=== PATIENT | female | born 1955 | race Caucasian/White ===

== ENCOUNTER → 2019-10-02 13:19 | Outpatient (CLI) | payer OTHER, SELFPAY ==
--- NOTE | ~2019-10-02 | MM_ITS ---
EXAMINATION: MM screening [facility] HISTORY: Screening TECHNIQUE: Craniocaudal and mediolateral oblique 3-D tomosynthesis images were obtained and synthetic 2-D images were generated. CAD analysis was submitted and interpreted. COMPARISON: Comparison to multiple prior studies sequentially, with oldest reviewed study dated 12/22. BREAST PARENCHYMAL COMPOSITION: There are scattered areas of fibroglandular density. FINDINGS: There is no evidence of suspicious mass, calcification, or architectural distortion to sugg est malignancy in either breast. There has been no suspicious interval change. IMPRESSION: 1. No mammographic evidence of malignancy. 2. Recommend routine screening mammography in one year. BI-RADS Category 1: Negative Reviewed, dictated and finalized at location A.
== END ==
PROVIDERS: Visit Provider Obstetrics & Gynecology
DX: Z12.31 Encounter for screening mammogram for malignant neoplasm of breast (principal)
CPT/HCPCS: 77063; 77067

== ENCOUNTER → 2020-10-15 11:15 | Outpatient (CLI) | payer MEDICARE, SELFPAY ==
--- NOTE | ~2020-10-15 | MM_ITS ---
EXAMINATION: MM screening [facility] HISTORY: Screening mammogram TECHNIQUE: Craniocaudal and mediolateral oblique 3-D tomosynthesis images were obtained and synthetic 2-D images were generated. CAD analysis was submitted and interpreted. COMPARISON: 10/02/2019, 05/24/2018, 01/24/2017 BREAST PARENCHYMAL COMPOSITION: The breasts are almost entirely fatty. FINDINGS: There is no evidence of suspicious mass, calcification, or architectural distortion to sugg est malignancy in either breast. There has been no suspicious interval change. IMPRESSION: 1. No mammographic evidence of malignancy. 2. Recommend routine screening mammography in one year. BI-RADS Category 1: Negative Reviewed, dictated and finalized at location A.
== END ==
PROVIDERS: PCP Physician Assistant; Visit Provider Obstetrics & Gynecology
DX: Z12.31 Encounter for screening mammogram for malignant neoplasm of breast (principal)
CPT/HCPCS: 77063; 77067

== ENCOUNTER → 2021-02-03 01:04 | Outpatient (CLI) | payer MEDICARE, SELFPAY ==
[2021-02-04 02:02] LABS: SARS-CoV-2 RNA PCR Negative
== END ==
PROVIDERS: PCP Physician Assistant; Visit Provider Physician Assistant
DX: R68.89 Other general symptoms and signs (principal); Z20.822 Contact with and (suspected) exposure to COVID-19
CPT/HCPCS: C9803; U0003; U0005

== ENCOUNTER 2021-05-07 02:08 | Day surgery (SDC) | payer MEDICARE, SELFPAY ==
[2021-04-30 13:21] VITALS: BMI 37.8
--- NOTE | 2021-05-06 13:36 | WPDGICN ---
Assessment and Plan Assessment and plan (1) Colon cancer screening: Code(s): Z12.11 - Encounter for screening for malignant neoplasm of colon Status: Acute Assessment and Plan: Colonoscopy with possible biopsy or polypectomy or cautery or injection of substances. GI Consult Note Consult date/time: 05/06/21 13:36 HPI: Jessica Ferrer is a 65 year old female referred b For colon cancer screening. She denies chronic diarrhea. She has recently had some constipation and on those 2 days saw a bit of blood in the stool. Review of Systems Review of Systems: All systems reviewed & are unremarkable except as noted in HPI and below PMFSH Past Medical History Medical History (Updated 05/07/21 @ 10:59 by Oscar Magallon MD) VANIA (obstructive sleep apnea) Paroxysmal A-fib Paroxysmal SVT (supraventricular tachycardia) Surgical History Surgical History (Updated 05/07/21 @ 10:47 by Georgi Zepeda MD) H/O cardiac radiofrequency ablation Family History Family History Father No family history of diabetes mellitus Diabetes mellitus Social History Social History Smoking status: Never smoker Second hand tobacco smoke exposure: No Alcohol intake: never Substance use: never Substance use type: does not use Living arrangements: with family Spiritual care concerns: No Meds Home Medications and Allergies Home Medications Medication Instructions Recorded Confirmed Type calcium carbonate 600 mg calcium 600 mg PO DAILY 05/31/19 04/30/21 History (1,500 mg) tablet cholecalciferol (vitamin D3) 25 50 mcg PO DAILY cap 05/31/19 04/30/21 History mcg (1,000 unit) capsule cyclosporine 0.05 % eye drops in a 1 drop EACH EYE Q12H 05/31/19 04/30/21 History dropperette apixaban 5 mg tablet 5 mg PO BID 01/05/21 04/30/21 History flecainide 100 mg tablet 100 mg PO BID tablet 01/05/21 04/30/21 History cyanocobalamin (vitamin B-12) 1,000 mcg PO DAILY 04/30/21 04/30/21 History [Vitamin B-12] gabapentin 100 mg PO HS 04/30/21 04/30/21 History gabapentin 100 mg PO TID PRN 04/30/21 04/30/21 History magnesium 400 mg PO HS 04/30/21 04/30/21 History propranolol 160 mg PO DAILY 04/30/21 04/30/21 History sertraline 100 mg PO DAILY 04/30/21 04/30/21 History Allergies Allergy/AdvReac Type Severity Reaction Status Date / Time piroxicam Allergy Intermediate HIVES Verified 05/07/21 10:08 diclofenac Allergy Mild SWELLING Verified 05/07/21 10:08 FEET/HANDS, LEFT BREAST PAIN Sulfa (Sulfonamide Allergy Mild Hives Verified 05/07/21 10:08 Antibiotics) codeine AdvReac Severe Nausea and Verified 05/07/21 10:08 Vomiting erythromycin base AdvReac Mild Nausea and Verified 05/07/21 10:08 Vomiting Exam Resp: Auscultation: clear to auscultation bilaterally Cardio: Rate: regular rate Rhythm: regular rhythm GI: GI Palp: Yes Soft to palpation and No Tenderness to palpation present (GI)
[2021-05-07 10:09] VITALS: BP 152/88; PULSE 65; RESP 20; TEMP 36.2; O2SAT 95; BMI 38.9
[2021-05-07] MEDS: LACTATED RINGERS 1,000 ML 150 ML IV CONT (10:25)
--- NOTE | 2021-05-07 10:46 | WPDANESEPPF ---
Anes - Initial Pre Proc Eval Procedure: Operation Date: 05/07/21 11:00 Proposed Procedures p Colonoscopy - Oscar Magallon MD Date/Time: 05/07/21 10:46 Surgeon: Oscar Magallon MD Pre Op Diagnosis: melena Patient Data Age: 65 Gender: F Height: 1.63 m Weight: 102.8 kg Last Vital Signs Temp 36.2 C L 05/07/21 10:09 Pulse 65 05/07/21 10:09 Resp 20 05/07/21 10:09 BP 152/88 H 05/07/21 10:09 Pulse Ox 95 05/07/21 10:09 Allergies Allergy/AdvReac Type Severity Reaction Status Date / Time piroxicam Allergy Intermediate HIVES Verified 05/07/21 10:08 diclofenac Allergy Mild SWELLING Verified 05/07/21 10:08 FEET/HANDS, LEFT BREAST PAIN Sulfa (Sulfonamide Allergy Mild Hives Verified 05/07/21 10:08 Antibiotics) codeine AdvReac Severe Nausea and Verified 05/07/21 10:08 Vomiting erythromycin base AdvReac Mild Nausea and Verified 05/07/21 10:08 Vomiting Home Medications Medication Instructions Recorded Confirmed Type calcium carbonate 600 mg calcium 600 mg PO DAILY 05/31/19 04/30/21 History (1,500 mg) tablet cholecalciferol (vitamin D3) 25 50 mcg PO DAILY cap 05/31/19 04/30/21 History mcg (1,000 unit) capsule cyclosporine 0.05 % eye drops in a 1 drop EACH EYE Q12H 05/31/19 04/30/21 History dropperette apixaban 5 mg tablet 5 mg PO BID 01/05/21 04/30/21 History flecainide 100 mg tablet 100 mg PO BID tablet 01/05/21 04/30/21 History cyanocobalamin (vitamin B-12) 1,000 mcg PO DAILY 04/30/21 04/30/21 History [Vitamin B-12] gabapentin 100 mg PO HS 04/30/21 04/30/21 History gabapentin 100 mg PO TID PRN 04/30/21 04/30/21 History magnesium 400 mg PO HS 04/30/21 04/30/21 History propranolol 160 mg PO DAILY 04/30/21 04/30/21 History sertraline 100 mg PO DAILY 04/30/21 04/30/21 History Patient hx anesthesia problems: none Family hx anesthesia problems: none Results Review: All pre-operative results and documents have been reviewed as part of the pre-operative evaluation. [facility] Past Medical History Medical History (Updated 05/07/21 @ 10:47 by Georgi Zepeda MD) VANIA (obstructive sleep apnea) Paroxysmal A-fib Paroxysmal SVT (supraventricular tachycardia) Surgical History Surgical History (Updated 05/07/21 @ 10:47 by Georgi Zepeda MD) H/O cardiac radiofrequency ablation Family History Family History Father No family history of diabetes mellitus Diabetes mellitus Social History Social History Smoking status: Never smoker Second hand tobacco smoke exposure: No Alcohol intake: never Substance use: never Substance use type: does not use Living arrangements: with family Spiritual care concerns: No Anes - Eval Final PreProcedure Day of Procedure 05/07/21 10:46 Patient weight: obese Heart: regular rate and rhythm Lungs: clear to auscultation Airway: Mallampati scale Neurological: alert and oriented Last oral intake: >/= 8 hours ASA classification: III Emergent: no Anesthetic plan: proceed Anesthesia type and monitoring: general GIVS and standard monitoring Results Review: All pre-operative results and documents have been reviewed as part of the pre-operative evaluation. Informed Consent: The patient's anesthetic plan and its attendant risks and benefits were discussed with the patient/family/POA. Questions were solicited and answers provided to the satisfaction of the patient/family/POA.
[2021-05-07 11:25] VITALS: BP 145/102; PULSE 64; RESP 22; O2SAT 96
[2021-05-07 11:35] VITALS: BP 148/102; PULSE 63; RESP 24; O2SAT 96
[2021-05-07 11:45] VITALS: BP 137/63; PULSE 60; RESP 19
== END 2021-05-07 12:05 | disposition home or self-care (01) ==
PROVIDERS: PCP Physician Assistant; Visit Provider Internal Medicine Gastroenterology
PROC: 0DJD8ZZ Inspection of Lower Intestinal Tract, Via Natural or Artificial Opening Endoscopic (ICD-10-PCS; CPT 45378; principal; 2021-05-07 11:00)
DX: Z12.11 Encounter for screening for malignant neoplasm of colon (principal); K64.8 Other hemorrhoids; K57.30 Diverticulosis of large intestine without perforation or abscess without bleeding; I48.0 Paroxysmal atrial fibrillation; I47.1 Supraventricular tachycardia; G47.33 Obstructive sleep apnea (adult) (pediatric); E66.9 Obesity, unspecified; Z68.38 Body mass index [BMI] 38.0-38.9, adult
CPT/HCPCS: G0121; J2704; J7120

== ENCOUNTER 2021-07-06 11:41 | Emergency (ER) | payer MEDICARE, SELFPAY ==
[2021-07-06] VITALS (8 sets, daily range): BP systolic 145–168; BP diastolic 66–75; PULSE 55–70; RESP 14–20; TEMP 36.5; O2SAT 96–100
--- NOTE | ~2021-07-06 | CT_ITS ---
EXAMINATION: CT brain wo/w con DATE: 07/06/2021 13:41 INDICATION: Vertigo. Dizziness. TECHNIQUE: Computed tomography (CT) of the head was performed without and with 100 mL Omnipaque 300 i ntravenous contrast. The mA was adjusted according to patient size. Iterative reconstruction techniqu e was employed. The dose-length product was 1059.33 mGy-cm. COMPARISON: None FINDINGS: There is no intracranial hemorrhage, acute infarction, or abnormal intracranial mass lesion . The ventricles are normal in size. There is mucosal thickening in the paranasal sinuses. The mastoi d air cells are normal. The orbits are normal. IMPRESSION: 1. Normal brain. Reviewed, dictated and finalized at location B. IMPRESSION: 1. Normal brain.
--- NOTE | 2021-07-06 12:11 | ECG_ITS ---
Measurements Intervals [place] Rate: 59 P: 48 [place]: 194 QRS: -28 QRSD: 113 T: 22 QT: 437 QTc: 434 Interpretive Statements SINUS BRADYCARDIA INTRAVENTRICULAR CONDUCTION DELAY BORDERLINE R WAVE PROGRESSION, ANTERIOR LEADS BORDERLINE ECG Electronically Signed On 07-06-2021 12:38:03 CDT by Kirk Sinha D.O.
[2021-07-06 12:48] LABS: Basophils Percent Auto 0.3 % (0.2-1.2); Eosinophils Absolute Auto 0.1 K/mm3 (0-0.3); Eosinophils Percent Auto 1.7 % (0-4.4); Hematocrit 41.7 % (37.0-47.0); Hemoglobin 12.7 g/dL (12.0-15.0); Immature Granulocyte Absolute 0.02 K/mm3 (0.00-0.031); Immature Granulocyte Percent A 0.3 % (0-0.5); Lymphocytes Percent Auto 13.8 % (18.3-44.2); Mean Corpuscular HGB Conc 30.5 g/dl (32-36); Mean Corpuscular Hemoglobin 28.7 pg (26-34); Mean Corpuscular Volume 94.1 fl (80-100); Mean Platelet Volume 8.8 fl (7.4-10.4); Monocytes Absolute Auto 0.6 K/mm3 (0.1-0.6); Neutrophils Absolute Auto 5.5 K/mm3 (1.3-6.7); Neutrophils Percent Auto 75.9 % (45.5-73.1); Platelet Count Result 254 k/mm3 (150-375); Red Blood Count 4.43 M/mm3 (4.2-5.4); Red Cell Distribution Width 13.6 % (11.5-14.5); White Blood Count 7.3 K/mm3 (4.5-10.0)
[2021-07-06 13:02] LABS: Alanine Aminotransferase 15 U/L (6-35); Albumin Level 3.7 g/dL (3.5-5.1); Alkaline Phosphatase 96 U/L (38-126); Anion Gap 2 mmol/L (8-16); Aspartate Amino Transferase 24 U/L (14-36); Bilirubin,Total 0.4 mg/dL (0.2-1.3); Blood Urea Nitrogen 8 mg/dL (7-17); Calcium 8.8 mg/dL (8.4-10.2); Carbon Dioxide 32 mmol/L (22-30); Chloride 108 mmol/L (98-107); Estimated CRCL calculation 69 ml/min; Estimated Glomerular Filt Rate > 60; Glucose 103 mg/dL (65-110); Potassium 4.3 mmol/L (3.4-5.0); Sodium 142 mmol/L (137-145)
[2021-07-06] MEDS: SODIUM CHLORIDE 0.9% IV 1,000 ML 999 ML IV CONT (13:55)
[2021-07-06] MEDS: MECLIZINE HCL 25 MG TABLET PO (13:55)
--- NOTE | 2021-07-06 14:46 | ED.DIZZY ---
HPI - Dizziness General Chief Complaint: Dizziness Stated Complaint: dizzy with nausea Time Seen by Provider: 07/06/21 13:13 Source: patient History of Present Illness HPI Narrative: Patient presents with dizziness describes sensation of feeling off balance. She has a history of vertigo usually controlled with meclizine but she no longer has her meclizine. She has been working on trying to see me in addition but is unable to do so. Dylans family member had similar symptoms which improved with vestibular PT. Reports her symptoms were worse this morning she is of a hard time walking around so she wanted come to ER for evaluation. Denies any focal numbness or weakness denies any headaches. Reports associated nausea. Denies any urinary symptoms chest pain or shortness of breath. Symptoms are worse with turning her head Related Data Home Medications Medication Instructions Recorded Confirmed calcium carbonate 600 mg calcium 600 mg PO DAILY 05/31/19 04/30/21 (1,500 mg) tablet cholecalciferol (vitamin D3) 25 50 mcg PO DAILY cap 05/31/19 04/30/21 mcg (1,000 unit) capsule cyclosporine 0.05 % eye drops in a 1 drop EACH EYE Q12H 05/31/19 04/30/21 dropperette apixaban 5 mg tablet 5 mg PO BID 01/05/21 04/30/21 flecainide 100 mg tablet 100 mg PO BID tablet 01/05/21 04/30/21 cyanocobalamin (vitamin B-12) 1,000 mcg PO DAILY 04/30/21 04/30/21 [Vitamin B-12] gabapentin 100 mg PO HS 04/30/21 04/30/21 gabapentin 100 mg PO TID PRN 04/30/21 04/30/21 magnesium 400 mg PO HS 04/30/21 04/30/21 propranolol 160 mg PO DAILY 04/30/21 04/30/21 sertraline 100 mg PO DAILY 04/30/21 04/30/21 sertraline mg 07/06/21 Allergies Allergy/AdvReac Type Severity Reaction Status Date / Time piroxicam Allergy Intermediate HIVES Verified 05/07/21 10:08 diclofenac Allergy Mild SWELLING Verified 05/07/21 10:08 FEET/HANDS, LEFT BREAST PAIN Sulfa (Sulfonamide Allergy Mild Hives Verified 05/07/21 10:08 Antibiotics) codeine AdvReac Severe Nausea and Verified 05/07/21 10:08 Vomiting erythromycin base AdvReac Mild Nausea and Verified 05/07/21 10:08 Vomiting Review of Systems Review of Systems: CONSTITUTIONAL: Denies fever, chills, or sweats. EYES: Denies visual changes, redness, or discharge. ENT: Denies rhinorrhea, congestion, sore throat, or otalgia. CARDIOVASCULAR: Denies chest pain, palpitations, or edema. RESPIRATORY: Denies cough or dyspnea. GASTROINTESTINAL: Denies abdominal pain, nausea, vomiting, or diarrhea. GENITOURINARY: Denies dysuria or hematuria. SKIN: Denies rash or itching. MUSCULOSKELETAL: Denies back pain, joint pain, or myalgia. NEUROLOGIC: Denies headache, numbness, or weakness. PSYCHIATRIC: Denies anxiety or depression. All systems reviewed & are unremarkable except as noted in HPI and below PMFSH Past Medical History Medical History VANIA (obstructive sleep apnea) Paroxysmal A-fib Paroxysmal SVT (supraventricular tachycardia) Surgical History Surgical History H/O cardiac radiofrequency ablation Family History Family History Father No family history of diabetes mellitus Diabetes mellitus Social History Social History Smoking status: Never smoker Second hand tobacco smoke exposure: No Alcohol intake: never Substance use: never Substance use type: does not use Spiritual care concerns: No Exam Narrative: GENERAL: Well-appearing, well-nourished, and in no acute distress. HEAD: Normocephalic, atraumatic. EYES: PERRLA and EOMI. ENT: Nares clear, no rhinorrhea or epistaxis. Mucous membranes moist. NECK: Supple. No masses. No JVD CHEST: Clear to auscultation. No respiratory distress. No wheezes rales or rhonchi HEART: Regular rate and rhythm. No murmur heard. N
== END 2021-07-06 15:09 | disposition home or self-care (01) ==
PROVIDERS: Emergency Provider Emergency Medicine; PCP Physician Assistant
DX: R42 Dizziness and giddiness (principal); G47.33 Obstructive sleep apnea (adult) (pediatric); I48.0 Paroxysmal atrial fibrillation; Z79.01 Long term (current) use of anticoagulants; R00.1 Bradycardia, unspecified; I45.9 Conduction disorder, unspecified; R94.31 Abnormal electrocardiogram [ECG] [EKG]
CPT/HCPCS: 36415; 70470; 80053; 85025; 93005; 96360; 99284; A9270; J7030; Q9967

== ENCOUNTER 2021-10-08 09:30 | Outpatient (CLI) | payer MEDICARE, SELFPAY ==
--- NOTE | ~2021-10-08 | CT_ITS ---
EXAMINATION: CTA brain carotid DATE: 10/08/2021 10:08 INDICATION: Vertebrobasilar insufficiency. Lightheadedness. TECHNIQUE: Computed tomographic angiography (CTA) of the head was performed without and with 100 mL O mnipaque-350 intravenous contrast. CTA of the neck was performed with intravenous contrast. Automated exposure control and iterative reconstruction technique were employed. The dose-length product was 1 560.94 mGy-cm. Maximum intensity projection and volume rendered 3D-reconstructions were created by steffanie knott technologist on a separate workstation. COMPARISON: Head CT 07/06/2021 FINDINGS: HEAD CTA: There is no intracranial hemorrhage, acute infarction, or abnormal intracranial mass lesion . The ventricles are normal in size. The orbits are normal. There is mucosal thickening in the parana silvano sinuses. The mastoid air cells are normal. Right vertebral artery is dominant. The basilar and po sterior cerebral arteries are small, a normal variant. There is no significant stenosis of basilar ar lyn or the posterior cerebral arteries. The posterior communicating arteries are normal. There is no significant stenosis of the intracranial internal carotid arteries or anterior or middle cerebral ar teries. Anterior communicating artery is normal. There is no aneurysm. NECK CTA: Main pulmonary artery is enlarged, consistent with pulmonary arterial hypertension. There a re no pathologically enlarged lymph nodes. There is no significant stenosis of the vertebral arteries . There is mild plaque in the proximal internal carotid arteries. There is 0% stenosis of the proxima l right internal carotid artery relative to normal distal artery lumen diameter (NASCET criteria). Th ere is 0% stenosis of the proximal left internal carotid artery relative to normal distal artery lume n diameter. There is moderate cervical spondylosis. IMPRESSION: 1. Normal brain. No aneurysm or significant intracranial arterial stenosis. 2. 0% stenosis of the proximal internal carotid arteries relative to normal distal artery lumen diame ters (NASCET criteria). Reviewed, dictated and finalized at location A. IMPRESSION: 1. Normal brain. No aneurysm or significant intracranial arterial stenosis. 2. 0% stenosis of the proximal internal carotid arteries relative to normal dis pham artery lumen diameters (NASCET criteria).
[2021-10-08 09:59] LABS: Estimated Glomerular Filt Rate > 60
== END 2021-10-08 09:31 | disposition home or self-care (01) ==
PROVIDERS: PCP Physician Assistant; Visit Provider Psychiatry & Neurology Neurology
DX: R42 Dizziness and giddiness (principal)
CPT/HCPCS: 70496; 70498; Q9967

== ENCOUNTER → 2021-12-08 09:47 | Outpatient (CLI) | payer MEDICARE, SELFPAY ==
--- NOTE | ~2021-12-08 | DEXA_ITS ---
Bone Density Report Name: GATITO BILLINGS Age: 66 Sex: Female Ethnicity: White Date of : 1955 Indication: osteopenia; parental hip fracture; height loss;postmenopausal Referring Provider: Fabio, Sanna Study: Bone densitometry was performed. Exam Date: December 08, 2021 Accession number: [id number] Bone Density: Region BMD T-score Z-score Classification AP Spine (L1, L4) 0.865 -1.6 0.3 Osteopenia Femoral Neck (Left) 0.676 -1.6 0.0 Osteopenia Total Hip (Left) 0.911 -0.3 1.1 Normal Femoral Neck (Right) 0.683 -1.5 0.1 Osteopenia Total Hip (Right) 0.872 -0.6 0.7 Normal Total Hip Mean 0.892 -0.5 0.9 Normal World Health Organization criteria for BMD impression classify patients as: Normal (T-score at or above -1.0), Osteopenia (T-score between -1.0 and -2.5), or Osteoporosis (T-score at or below -2.5). 10-year Fracture Risk(1): Major Osteoporotic Fracture 15% Hip Fracture 1.1% Reported Risk Factors: [place] (), Neck BMD=0.683, BMI=40.2, parental fracture (1) FRAX(R) Version 3.08. Fracture probability calculated for an untreated patient. Fracture probability may be lower if the patient has received treatment. Previous Exams: Region Exam Age BMD T-score BMD Change BMD Change Date g/cm2 vs Baseline vs Previous AP Spine(L1, L4) 12/08/2021 66 0.865 -1.6 -0.168 -0.008 01/04/2015 59 0.873 -1.5 -0.160* -0.018 09/16/2012 57 0.891 -1.3 -0.142* -0.061* 09/09/2010 55 0.952 -0.8 -0.081* -0.022 05/04/2008 52 0.974 -0.6 -0.059* -0.059* 03/08/2006 50 1.033 0.0 Total Hip(Left) 12/08/2021 66 0.911 -0.3 -0.081 0.042 01/04/2015 59 0.869 -0.6 -0.123* 0.068* 09/16/2012 57 0.801 -1.2 -0.191* -0.089* 09/09/2010 55 0.890 -0.4 -0.102* -0.050* 05/04/2008 52 0.940 0.0 -0.052* -0.052* 03/08/2006 50 0.992 0.4 Total Hip(Right) 12/08/2021 66 0.872 -0.6 -0.107 0.042 01/04/2015 59 0.831 -0.9 -0.148* 0.055* 09/16/2012 57 0.776 -1.4 -0.203* -0.104* 09/09/2010 55 0.880 -0.5 -0.099* -0.030* 05/04/2008 52 0.910 -0.3 -0.069* -0.069* 03/08/2006 50 0.979 0.3 *Denotes significance at 95% confidence level, LSC for AP Spine = 0.022 g/cm2, LSC for Total Hip = 0.027 g/cm2 Clinical Information Provided by Patient:
== END ==
PROVIDERS: PCP Physician Assistant; Visit Provider Nurse Practitioner
DX: Z78.0 Asymptomatic menopausal state (principal); M85.88 Other specified disorders of bone density and structure, other site; M85.852 Other specified disorders of bone density and structure, left thigh; M85.851 Other specified disorders of bone density and structure, right thigh
CPT/HCPCS: 77080

== ENCOUNTER → 2021-12-22 15:55 | Outpatient (CLI) | payer MEDICARE, SELFPAY ==
--- NOTE | ~2021-12-22 | MM_ITS ---
EXAMINATION: MM screening [facility] BI [facility] HISTORY: Screening TECHNIQUE: Craniocaudal and mediolateral oblique 3-D tomosynthesis images were obtained and synthetic 2-D images were generated. CAD analysis was submitted and interpreted. COMPARISON: Comparison to multiple prior studies sequentially, with oldest reviewed study dated 12/22. BREAST PARENCHYMAL COMPOSITION: There are scattered areas of fibroglandular density. FINDINGS: There is no evidence of suspicious mass, calcification, or architectural distortion to sugg est malignancy in either breast. There has been no suspicious interval change. IMPRESSION: 1. No mammographic evidence of malignancy. 2. Recommend routine screening mammography in one year. BI-RADS Category 1: Negative Reviewed, dictated and finalized at location A.
== END ==
PROVIDERS: PCP Physician Assistant; Visit Provider Nurse Practitioner
DX: Z12.31 Encounter for screening mammogram for malignant neoplasm of breast (principal)
CPT/HCPCS: 77063; 77067

== ENCOUNTER 2022-02-03 10:04 | Emergency (ER) | payer MEDICARE, SELFPAY ==
[2022-02-03 10:53] VITALS: BP 159/83; PULSE 62; RESP 18; TEMP 36.7; O2SAT 98
--- NOTE | 2022-02-03 11:28 | ED.URI ---
HPI - URI/Sore Throat General Chief Complaint: Upper Respiratory Infection Stated Complaint: bilateral ear pain,sinus drainage Time Seen by Provider: 02/03/22 11:28 Source: patient Mode of arrival: ambulatory Limitations: no limitations History of Present Illness HPI Narrative: 66-year-old female presents with complaint of sinus congestion, sore throat, fatigue, decreased appetite for 2 days. Afebrile. Denies chills and body aches. No nausea vomiting diarrhea. Denies chest pain and shortness of breath. Has not taking any [id number] medications to treat her symptoms. All systems reviewed and negative except as noted above. Related Data Home Medications Medication Instructions Recorded Confirmed calcium carbonate 600 mg calcium 600 mg PO DAILY 05/31/19 02/03/22 (1,500 mg) tablet cholecalciferol (vitamin D3) 25 50 mcg PO DAILY 05/31/19 02/03/22 mcg (1,000 unit) capsule cyclosporine 0.05 % eye drops in a 1 drop ophthalmic (eye) Q12H 05/31/19 02/03/22 dropperette (Restasis) apixaban 5 mg tablet (Eliquis) 5 mg PO BID 01/05/21 02/03/22 flecainide 100 mg tablet 100 mg PO BID 01/05/21 02/03/22 cyanocobalamin (vitamin B-12) 1,000 mcg PO DAILY 04/30/21 02/03/22 1,000 mcg tablet (Vitamin B-12) magnesium 200 mg tablet 400 mg PO HS 04/30/21 02/03/22 propranolol 160 mg capsule,24 160 mg PO DAILY 04/30/21 02/03/22 hr,extended release gabapentin 100 mg capsule 100 mg PO QHS 07/16/21 02/03/22 triamcinolone acetonide 55 mcg 1 spray intranasal DAILY 02/03/22 02/03/22 nasal spray aerosol (Nasacort) Allergies Allergy/AdvReac Type Severity Reaction Status Date / Time latex Allergy Intermediate Rash Verified 02/03/22 10:53 codeine AdvReac Severe Nausea and Verified 02/03/22 10:53 Vomiting erythromycin base AdvReac Mild Nausea and Verified 02/03/22 10:53 Vomiting Review of Systems Review of Systems: CONSTITUTIONAL: Denies fever, chills, or sweats. EYES: Denies visual changes, redness, or discharge. ENT: Reports rhinorrhea, congestion, sore throat. Denies otalgia. CARDIOVASCULAR: Denies chest pain, palpitations, or edema. RESPIRATORY: Denies cough or dyspnea. GASTROINTESTINAL: Denies abdominal pain, nausea, vomiting, or diarrhea. GENITOURINARY: Denies dysuria or hematuria. SKIN: Denies rash or itching. MUSCULOSKELETAL: Denies back pain, joint pain, or myalgia. NEUROLOGIC: Denies headache, numbness, or weakness. PSYCHIATRIC: Denies anxiety or depression. All other systems reviewed are negative, except as documented in HPI. [facility] Past Medical History Medical History VANIA (obstructive sleep apnea) Paroxysmal A-fib Paroxysmal SVT (supraventricular tachycardia) Surgical History Surgical History H/O cardiac radiofrequency ablation Family History Family History Father No family history of diabetes mellitus Diabetes mellitus Social History Social History (Updated 01/22/22 @ 11:41 by Bárbara Fuller MA) Smoking status: Never smoker Second hand tobacco smoke exposure: No Alcohol intake: never Substance use: never Substance use type: does not use Lack of Food: Never True Concerned About Future Housing: No Difficulty Paying Gas/Electric Bills: No Difficulty Paying for Meds: No Currently Unemployed: No Education: Trade/Vocational Certificate Difficulty w/ Childcare or Family Care: No Spiritual care concerns: No Comments At time of signature, agree with nursing past medical, surgical, social and family history. There is no relevant family history pertinent to the presenting complaint. Exam Narrative: GENERAL: This is a well-nourished, well-developed patient, in no apparent distress. HEAD: normocephalic, atraumatic. EYES: PERRL. Sclera clear/white. Vision is grossly intact. EARS: External ears normal, au
== END 2022-02-03 12:05 | disposition home or self-care (01) ==
PROVIDERS: Emergency Provider Nurse Practitioner Family; PCP Physician Assistant
DX: J01.90 Acute sinusitis, unspecified (principal); Z20.822 Contact with and (suspected) exposure to COVID-19; I48.0 Paroxysmal atrial fibrillation
CPT/HCPCS: 87426; 87804; 99213; C9803; G0463

== ENCOUNTER → 2022-03-19 10:45 | Outpatient (CLI) | payer MEDICARE, SELFPAY ==
--- NOTE | ~2022-03-19 | MR_ITS ---
EXAMINATION: MR knee LT wo con DATE: 03/19/2022 11:31 INDICATION: Chronic left knee pain TECHNIQUE: Magnetic resonance imaging (MRI) of the left knee was performed without intravenous contra st. Sequences included coronal PD-weighted FSE, coronal PD-weighted FS FSE, sagittal T2-weighted FSE , sagittal PD-weighted FS FSE and axial PD weighted fat saturated FSE. COMPARISON: None. FINDINGS: Medial compartment: Longitudinal horizontal tear extending to the inferior articular surface at the junction of the middl e and inner thirds of the posterior body and posterior horn of the medial meniscus. Articular cartila ge is normal. Lateral compartment: Increased signal involving the inner third of the body of the lateral meniscus on 2 consecutive coron al images and extending inferior articular surface on the third consistent with a meniscal tear of in determinate morphology, most likely complex. Additional increased signal along the inner half of the posterior horn of the lateral meniscus consistent with radial versus additional complex tear. Articul ar cartilage is normal. Patellofemoral compartment: Deep chondral ulceration at the medial patellar facet and cephalad aspect of the apical ridge with a couple small foci of subarticular edema-like signal change. Less severe partial thickness cartilage l oss with deep chondral fissuring at the lateral patellar facet. Peripheral chondral ulceration and de ep fissuring with underlying cortical regularity and minimal edema-like signal change at the inferior aspect of the medial trochlea. Ligaments and tendons: Anterior and posterior cruciate ligaments are normal. The medial collateral ligament and fibular jennifer ateral ligament complex are normal. The extensor mechanism is normal. The visualized medial and later al hamstring tendons as well as the iliotibial band are normal. Fluid: Physiologic amount of fluid in the joint space. No loose osteochondral bodies identified. Osseous/other: Normal marrow signal cephalad presented small fossa degenerative subarticular signal change at the pa tellofemoral compartment. No fracture or pathologic marrow replacing process. IMPRESSION: 1. Medial and lateral meniscal tears. 2. 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 Reviewed, dictated and finalized at location B. ARER MAKING DEPARTMENT IMPRESSION: 1. Medial and lateral meniscal tears. 2. 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
== END ==
PROVIDERS: PCP Physician Assistant; Visit Provider Orthopaedic Surgery
DX: M17.12 Unilateral primary osteoarthritis, left knee (principal); S83.282A Other tear of lateral meniscus, current injury, left knee, initial encounter; S83.242A Other tear of medial meniscus, current injury, left knee, initial encounter; X58.XXXA Exposure to other specified factors, initial encounter
CPT/HCPCS: 73721

== ENCOUNTER → 2023-01-31 10:57 | Outpatient (CLI) | payer MEDICARE, SELFPAY ==
--- NOTE | ~2023-01-31 | XR_ITS ---
EXAMINATION: XR lumbar spine 2-3V DATE: 01/31/2023 11:32 INDICATION: Low back pain TECHNIQUE: Anteroposterior and lateral views of the lumbar spine, and cone-down lateral view of the l umbosacral junction were obtained. COMPARISON: None. FINDINGS: There is moderate loss of intervertebral disc space height at L1-2 and L4-5. Vertebral body heights and alignment are maintained. There is no fracture. There is moderate facet joint osteoarthr itis. IMPRESSION: 1. Moderate lumbar spondylosis without acute findings. Reviewed, dictated and finalized at location B. ARY DIRECTOR
--- NOTE | ~2023-01-31 | XR_ITS ---
EXAMINATION: XR thoracic spine 3V DATE: 01/31/2023 11:32 INDICATION: Thoracic back pain TECHNIQUE: AP, lateral and lateral swimmer's views of the thoracic spine were obtained. COMPARISON: None. FINDINGS: Bone alignment is normal. There is no fracture. There is moderate loss of intervertebral di sc space height throughout the thoracic spine. The vertebral body heights appear to be maintained. Sm all degenerative osteophytes project from the anterior endplates of multiple vertebral bodies. IMPRESSION: 1. Moderate thoracic spondylosis without acute findings. Reviewed, dictated and finalized at location B. AGE CENTER MANAGER
== END ==
PROVIDERS: PCP Physician Assistant
DX: M47.894 Other spondylosis, thoracic region (principal); M47.896 Other spondylosis, lumbar region
CPT/HCPCS: 72072; 72100

== ENCOUNTER → 2023-03-04 12:26 | Outpatient (CLI) | payer MEDICARE, SELFPAY ==
--- NOTE | ~2023-03-04 | MM_ITS ---
EXAMINATION: MM screening [facility] BI w loyd HISTORY: Screening mammogram TECHNIQUE: Craniocaudal and mediolateral oblique 3-D tomosynthesis images were obtained and synthetic 2-D images were generated. CAD analysis was submitted and interpreted. COMPARISON: 12/22/2021, 10/15/2020, 10/02/2019 BREAST PARENCHYMAL COMPOSITION: The breasts are almost entirely fatty. FINDINGS: No suspicious mass, calcification, or architectural distortion are identified in either jasper ast to suggest malignancy. There has been no suspicious interval change. IMPRESSION: 1. No mammographic evidence of malignancy. 2. Recommend routine screening mammography in one year. BI-RADS Category 1: Negative Reviewed, dictated and finalized at location A. MENTAL IRON WORKER HELPER
== END ==
PROVIDERS: PCP Obstetrics & Gynecology Gynecology; Visit Provider Obstetrics & Gynecology Gynecology
DX: Z12.31 Encounter for screening mammogram for malignant neoplasm of breast (principal)
CPT/HCPCS: 77063; 77067

== ENCOUNTER 2024-05-11 11:36 | Outpatient (CLI) | payer MEDICARE, SELFPAY ==
--- NOTE | ~2024-05-11 | MM_ITS ---
EXAMINATION: MM screening [facility] BI w loyd HISTORY: Screening TECHNIQUE: Craniocaudal and mediolateral oblique 3-D tomosynthesis images were obtained and synthetic 2-D images were generated. CAD analysis was submitted and interpreted. COMPARISON: Comparison to multiple prior studies sequentially, with oldest reviewed study dated 01/21. BREAST PARENCHYMAL COMPOSITION: Not dense: There are scattered areas of fibroglandular density. FINDINGS: There is no evidence of suspicious mass, calcification, or architectural distortion to sugg est malignancy in either breast. There has been no suspicious interval change. IMPRESSION: 1. No mammographic evidence of malignancy. 2. Recommend routine screening mammography in one year. BI-RADS Category 1: Negative Reviewed, dictated and finalized at location B.
== END 2024-05-11 11:37 | disposition home or self-care (01) ==
PROVIDERS: PCP Student in an Organized Health Care Education/Training Program; Visit Provider Nurse Practitioner Women's Health
DX: Z12.31 Encounter for screening mammogram for malignant neoplasm of breast (principal)
CPT/HCPCS: 77063; 77067

== ENCOUNTER 2024-05-30 13:47 | Outpatient (CLI) | payer MEDICARE, SELFPAY ==
--- NOTE | ~2024-05-30 | DEXA_ITS ---
Bone Density Report Name: GATITO BILLINGS Age: 68 Sex: Female Ethnicity: White Date of : 1955 Indication: postmenopausal; screening for osteoporosis; height loss; Referring Provider: VIVI, ELVIRA Study: Bone densitometry was performed. Exam Date: May 30, 2024 Accession number: [id number] Bone Density: Region BMD T-score Z-score Classification AP Spine(L1, L2) 0.916 -0.6 1.3 Normal Femoral Neck (Left) 0.620 -2.1 -0.3 Osteopenia Total Hip (Left) 0.811 -1.1 0.4 Osteopenia Femoral Neck (Right) 0.665 -1.7 0.1 Osteopenia Total Hip (Right) 0.794 -1.2 0.2 Osteopenia Femoral Neck Mean 0.643 -1.9 -0.1 Osteopenia Total Hip Mean 0.802 -1.1 0.3 Osteopenia World Health Organization criteria for BMD impression classify patients as: Normal (T-score at or above -1.0), Osteopenia (T-score between -1.0 and -2.5), or Osteoporosis (T-score at or below -2.5). 10-year Fracture Risk(1): Major Osteoporotic Fracture 11% Hip Fracture 1.9% Reported Risk Factors: [place] (), Neck BMD=0.620, BMI=36.5 (1) FRAX(R) Version 3.08. Fracture probability calculated for an untreated patient. Fracture probability may be lower if the patient has received treatment. Clinical Information Provided by Patient: Has used the following medications: Vitamin D, Calcium, MULTI Patient maximum height was 64 Menopause Age: 48 No regular weight bearing exercise Drinks caffeinated beverages Onset of menses at age 12 Number of children 1 Impression: The patient has low bone mass, based on the Left Femoral Neck T-score. Discussion: BONE DENSITY IS LOW AT ONE OR MORE SKELETAL SITES. This patient's lowest T-score is low at one or more skeletal sites. It meets the World Health Organization's (WHO) criteria for ?low bone mass? (T-score between -1.0 and -2.5). The patient's 10-year risk of fracture as calculated by FRAX is less than the threshold where pharmacological therapy is recommended by the National Osteoporosis Foundation (NOF). However, all treatment decisions require clinical judgment and consideration of individual patient factors, including patient preferences, comorbidities, previous drug use, risk factors not captured in the FRAX model (e.g., frailty, falls, vitamin D deficiency, increased bone turnover, interval significant decline in bone density) and possible under or overestimation of fracture risk by FRAX. The patient should follow a healthful lifestyle (good nutrition with adequate calcium and vitamin D, and appropriate weight-bearing exercise). Follow-Up: Consider repeating this study in 2 to 3 years to reassess this patient's status, or sooner if there is some new clinical indication. Reported by: BRIJESH on 05/30/2024 2:11:00 PM. Reviewed, dictated and finalized at location A.
--- OUTSIDE RECORDS SUMMARY | 2024-05-30 15:23 | XMS_ITS | Encounter Summary ---
Author Organization [place] [facility] Address [address] [place] [address] Phone Care Team Providers Care Knot Bumper Name Role Phone Asa Farias MD Primary Care Provider [phone] Albaro Hickman Primary Care Provider Rach Hayes MD Unavailable Neeta Rodriguez NP Unavailable [phone] Guru Florez MD PhD Unavailable [phone] Yury Sheridan MD Unavailable + [phone] Crow Bernardo MD Primary Care Provider + [phone] Albaro Hickman Unavailable [phone] Tello Phipps MD Unavailable [phone] Rupert Stevens DO Primary Care Provider [phone] Maria Fernanda Wilde MD Primary Care Provider + [phone] Maria Fernanda Wilde MD Primary Care Provider Encounter Details Date Type Department Care Team (Late st Contact Info) Description 10/27/2016 Orders Only [facility] CLINCONV Provider, MD Luis [facility] [place] [address] Social History Tobacco Use Types Packs/Day Years Used Date Smoking Tobacco: Never Comments Unknown Sex and Gender Information Value Date Recorded Sex Assigned at Not on file 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 Historical Provider CV CARDIAC SERVICES PROCE DURES Final Result * CARDIOLOGY REPORT (10/27/2016) Anatomical Region Laterality Modality Other Narrative 10/27/2016 Ordered by an unspecified provider. us Historical Provider CV CARDIAC SERVICES PROCE DURES Final Result documented in this encounter Visit Diagnoses Not on filedocumented in this encounter Care Teams Knot Bumper Relationship Specialty Start Date End Date Asa Farias MD PCP - General 07/20/16 05/09/18 Albaro Hickman PA [address] [place] [address] [place] [address] PCP - General Physician Credit Charge Authorizer 05/10/18 10/07/22 Crow Bernardo MD [address] [address] PCP - General Internal Medicine 10/08/22 08/11/23 Rupert Stevens DO [address] [address] PCP - General Internal Medicine 08/12/23 01/17/24 Maria Fernanda Wilde MD [facility] [address] [place] [address] PCP - General Family Medicine 01/18/24 05/20/24 Maria Fernanda Wilde MD [address] [address] PCP - General Family Medicine 05/21/24 Rach Hayes MD [address] [place] [address] [facility] [address] Consulting Physician Pain Management 05/05/21 Neeta Rodriguez NP [address] [place] [address] [address] [place] [address] Referring Physician Orthopedic Surgery 05/22/21 Guru Florez MD PhD [address] [place] [address] [address] [place] [address] Referring Physician Cardiology 08/19/22 Yury Sheridan MD [address] [place] [address] [address] [place] [address] Consulting Physician Orthopedic Surgery 09/30/22 Albaro Hickman PA [address] [id number] Physician Credit Charge Authorizer Physician Credit Charge Authorizer 10/08/22 Tello Phipps MD [address] [place] [address] [address] [place] [address] Referring Physician Orthopedic Surgery 04/14/23 documented as of this encounter
--- OUTSIDE RECORDS SUMMARY | 2024-05-30 15:23 | XMS_ITS | Encounter Summary ---
Author Organization [facility] Address [address] [place] [address] Phone Care Team Providers Care Doper Name Role Phone Asa Farias MD Primary Care Provider [phone] Albaro Hickman Primary Care Provider Rach Hayes MD Unavailable Neeta Rodriguez NP Unavailable [phone] Guru Florez MD PhD Unavailable [phone] Yury Sheridan MD Unavailable + [phone] Crow Bernardo MD Primary Care Provider + [phone] Albaro Hickman Unavailable [phone] Tello Phipps MD Unavailable [phone] Rupert Stevens DO Primary Care Provider [phone] Maria Fernanda Wilde MD Primary Care Provider + [phone] Maria Fernanda Wilde MD Primary Care Provider Encounter Details Date Type Department Care Team (Late st Contact Info) Description 05/26/2016 Orders Only [facility] CLINCONV Provider, MD Luis [facility] [place] [address] Social History Tobacco Use Types Packs/Day Years Used Date Smoking Tobacco: Never Assessed Comments Unknown Sex and Gender Information Value Date Recorded Sex Assigned at Not on file 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 Historical Provider CV CARDIAC SERVICES PROCE DURES Final Result * CARDIOLOGY REPORT (05/26/2016) Anatomical Region Laterality Modality Other Narrative 05/26/2016 Ordered by an unspecified provider. us Historical Provider CV CARDIAC SERVICES PROCE DURES Final Result documented in this encounter Visit Diagnoses Not on filedocumented in this encounter Care Teams Doper Relationship Specialty Start Date End Date Asa Farias MD PCP - General 07/20/16 05/09/18 Albaor Hickman PA [address] [place] [address] PCP - General Physician Boat Finisher 05/10/18 10/07/22 Crow Bernardo MD [address] [address] PCP - General Internal Medicine 10/08/22 08/11/23 Rupert Stevens DO [address] [address] PCP - General Internal Medicine 08/12/23 01/17/24 Maria Fernanda Wilde MD [address] [facility] [address] [place] [address] PCP - General Family Medicine 01/18/24 05/20/24 Maria Fernanda Wilde MD [address] [address] PCP - General Family Medicine 05/21/24 Rach Hayes MD [address] [place] [address] [facility] [address] Consulting Physician Pain Management 05/05/21 Neeta Rodriguez NP [address] [place] [address] [address] Referring Physician Orthopedic Surgery 05/22/21 Guru Florez MD PhD [address] [place] [address] [address] Referring Physician Cardiology 08/19/22 Yury Sheridan MD [address] [place] [address] [address] Consulting Physician Orthopedic Surgery 09/30/22 Albaro Hickman PA [address] [address] Physician Boat Finisher Physician Boat Finisher 10/08/22 Tello Phipps MD [address] [place] [address] [address] Referring Physician Orthopedic Surgery 04/14/23 documented as of this encounter
--- OUTSIDE RECORDS SUMMARY | 2024-05-30 15:23 | XMS_ITS | Clinical Summary ---
Author Organization [facility] 2 Address [address] [facility] [place] [address] Care Team Providers Care Distributing Clerk Name Role Phone Rach Hayes MD Unavailable Neeta Rodriguez NP Unavailable [phone] Guru Florez MD PhD Unavailable [phone] Yury Sheridan MD Unavailable [phone] Albaro Hickman Unavailable [phone] Tello Phipps MD Unavailable [phone] Maria Fernanda Wilde MD Primary Care Provider Allergies Active Allergy Reactions Criticality Noted Date Comments Codeine Nausea & Vomiting,Na usea only Medium 08/11/2015 Erythromycin Nausea & Vomiting Low Latex Itching,Rash Medium 09/08/2012 . Sulfa (Sulfonamide Antibiotics) Rash Medium 05/09/2023 Medications calcium carbonate-vitamin D3 400-133.3 mg-unit tabletIndications :Hypocalcemia Prevention Take 400 mg by mouth 2 (two) times a day 07/04/19 03 Active cholecalciferol (VITAMIN D-3) 1,000 unitIndications:s upplement Take 1 tablet/capsul e (1,000 Units total) by mouth daily with breakfast Active sertraline (ZOLOFT) 100 mg tablet Take 1 tablet (100 mg total) by mouth daily 05/07/19 20 Active triamcinolone (NASACORT) 55 mcg nasal inhaler as needed for allergies or rhinitis Seasonal/ late summer, early fall Active cyanocobalamin 2,000 mcg tablet Take 1 tablet (2,000 mcg total) by mouth daily Active gabapentin (NEURONTIN) 100 mg capsule Take 2 capsules (200 mg total) by mouth nightly 05/23/19 22 Active lifitegrast (Xiidra) 5 % dropperette Administer 0.1 each (1 drop total) into affected eye(s) daily Active losartan (COZAAR) 50 mg tablet Take 2 tablets (100 mg total) by mouth nightly Active meclizine (ANTIVERT) 25 mg tablet Take 1 tablet (25 mg total) by mouth 3 (three) times a day as needed for dizziness 21 tablet 09/04/19 24 Active ondansetron ODT (ZOFRAN-ODT) 4 mg disintegrating tablet Take 1 tablet (4 mg total) by mouth every 6 (six) hours as needed for nausea or vomiting 20 tablet 09/04/19 24 Active apixaban (Eliquis) 5 mg tablet Take 1 tablet (5 mg total) by mouth 2 (two) times a day *while on flecainide need labs and EKG every 6 months - prior to refill* 180 tablet 3 10/25/19 24 Active propranolol LA (INDERAL LA) 160 mg 24 hr capsuleIndication s:Palpitations,Cruz praventricular tachycardia,High risk medication use TAKE 1 CAPSULE BY MOUTH DAILY 90 capsule 3 03/13/19 25 Active flecainide (TAMBOCOR) 100 mg tablet TAKE 1 TABLET BY MOUTH TWICE DAILY 180 tablet 1 05/22/19 25 Active flecainide (TAMBOCOR) 100 mg tablet TAKE 1 TABLET BY MOUTH TWICE DAILY 180 tablet 03/12/19 25 2024 Discontinued Active Problems Problem Noted Date Diagnosed Date Paroxysmal atrial fibrillation 10/11/2022 Essential hypertension 05/10/2018 History of cardiovascular surgery 07/24/2015 Lumbago 03/19/2014 Episodic tension-type headache 07/24/2013 Supraventricular tachycardia 06/01/2013 Palpitations 06/01/2013 Degeneration of intervertebral disc of lumbar re gion 07/21/2012 Arthralgia of wrist 08/26/2011 Mass of skin 08/24/2011 Head revolving around 09/11/2010 Overview (06/02/2017): Description: due to migraine Vestibular vertigo 07/23/2010 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 Dizziness 04/25/2006 Encounters Date Type Department Care Team Description 05/21/2024 12:25 PM CDT Lab [facility] [address] [place], [place] [address] [place] [address] Paroxysmal atrial fibrillation (HCC) 05/21/2024 11:30 AM CDT Office Visit [facility] Cardiology [address] [place] [address] Marina Reddy NP Paroxysmal atrial fibrillation (HCC) (Primary Dx) 05/21/2024 Results Follow-Up [facility] Cardiology [address] [place] [address] Marina Reddy NP 05/10/2024 Telephone [facility] Medical [facility] Orthopedics and Sports Medicine [address] [place] [address] [address] [place] [address] Con Freitas MD 04/03/2024 Telephone [facility] Orthopedics and Sports Medicine [address] [place] [address] [address] [place] [address] Con Freitas MD Chair stair lift 04/03/2024 Telephone [facility] Cardiology [address] [facility] 8th [place] [address] [place] [address] Marina Reddy NP 03/28/2024 Telephone [facility] Orthopedics and Sports Medicine [address] [place] [address] [address] [place] [address] Con Freitas MD gel inj from Last 3 Months Immunizations Immunization Administration Dates Next Due Tdap 09/04/2023 Surgical History Surgery Date Site/Laterality Comments IA NEURP MAJOR PRPH NRV ARM/LEG OPN OTH/THN SPEC Neuroplasty Ulnar Nerve - (Added by TW Conv) IA REM INTERROG SCRMS <30 D PHYS/QHP Interrogation Of Implantable Loop Recorder Remote, Up To 30 Days - non sustained VT (Added by TW Conv) MENISCUS SURGERY FLUORO GUIDED ASPIRATION OR INJECTION INTERMEDIATE JOINT RIGHT 04/27/2023 Right KNEE ARTHROSCOPY W/ LATERAL RELEASE 03/2018 EYE SURGERY 09/14/2023 Right Right eye cateract surgerty SPINAL CORD STIMULATOR IMPLANT 07/27/2023 Medical History Medical History Date Comments Personal history of other sp ecified conditions History of headache - (Added by TW Conv) PONV (postoperative nausea and vomiting) SVT (supraventricular tachycardia) Arthritis DDD (degenerative disc disease), lumbar Lumbar facet arthropathy Foraminal stenosis of lumbar region Atrial fibrillation (HCC) Allergic rhinitis Lumbar facet arthropathy Heart disease 05/2010 Sleep apnea 10/2012 Delayed emergence from general anesthesia Motion sickness Hypertension GERD (gastroesophageal reflux disease) Obesity Family History Medical History Relation Name Comments Atrial fibrillation Brother Fantasma Walker Family h istory of atrial fibrillation - (Added by TW Conv) Clotting disorder Brother Fantasma Walker Alzheimer's disease Father Luis Alfredo Walker Clotting disorder Father Luis Alfredo Walker Heart attack Maternal Grandfather Dusty Walker Angina Maternal Grandmother Asthma Mother Cherise Rebollar Memory loss Mother Cherise Rebollar Cancer Other 1 Reported A Hist ory Of Cancer - father with prostate cancer (Added by TW Conv) Migraines Other 2 Migraine Headac he - mother (Added by TW Conv) Diabetes Other 3 Diabetes Mellit us - father (Added by TW Conv) Heart disease Other 4 Heart Disease - mother (Added by TW Conv) Relation Name Status Comments Brother Fantasma Walker Father Luis Alfredo Walker Maternal Grandfather Dusty Walker Maternal Grandmother Mother Cherise Rebollar Other 1 Other 2 Other 3 Other 4 Social History Tobacco Use Types Packs/Day Years Used Date Smoking Tobacco: Never Passive Smoke Exposure: Never Smokeless Tobacco: Never Tobacco Cessation:Counseling Given: Not Answered Alcohol Use Standard Drinks/Week Comments Yes 0 (1 standard drink = 0.6 oz pur e alcohol) rare AUDIT-C Answer Date Recorded Q1: How often do you have a drink containing alc ohol? Monthly or less 12/01/2023 Q2: How many drinks containi ng alcohol do you have on a typical day when you are drinking? 1 or 2 12/01/2023 Q3: How often do you have si x or more drinks on one occasion? Never 12/01/2023 Personal Safety Answer Date Recorded Have you ever been in or are you currently in a harmful physical or emotional relationship or is someone making you feel afraid or unsafe? 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 Gender Identity Female 07/15/2022 2:23 PM CDT Sexual Orientation Choose not to disclose 2023 12:05 PM CDT Occupation Industry Job Start Date Job End Date retired Not on file Not on file Not on file Obstetrics History Last Filed Vital Signs Vital Sign Reading Time Taken Comments Blood Pressure 152/83 05/21/2024 11:37 AM CDT Pulse 59 05/21/2024 11:37 AM CDT Temperature 36.7 C (98.1 F) 12/01/2023 11:32 AM CDT Respiratory Rate 20 12/01/2023 11:32 AM CDT Oxygen Saturation 97% 05/21/2024 11:37 AM CDT Inhaled Oxygen Concentration - - Weight 93 kg (205 lb) 05/21/2024 11:37 AM CDT Height 162.5 cm (5' 3.96 ) 05/21/2024 11:37 AM C DT Body Mass Index 35.23 05/21/2024 11:37 AM CDT Plan of Treatment Health Maintenance Due Date Last Done Comments Breast Cancer Screening-Mammogram 1955 Colon Cancer Screening-Colonoscopy 1955 Depression Screening 1955 Hepatitis C Screening 1955 Osteoporosis Screening-Bone Density Scan 1955 Hepatitis B Screening 06/12/1973 Pneumococcal vaccine 65+ (1 of 1 - PCV) 06/12/2005 Zoster Vaccine (3 of 3) 12/20/2017 10/25/2017, 01/02 Well Visit 65+ 06/12/2020 Covid-19 Vaccine (5 - 2023-2 5 season) 2023 12/23/2021, 11/25/2020, 05/12/2020, Additional history exists Fall Risk Assessment 07/26/2024 07/27/2023 DTaP/Tdap/Td Vaccine (3 - Td or Tdap) 09/03/2033 09/04/2023, 11/04/2013 Influenza Vaccine Completed 12/27/2023, , 12/14/2022, Additional history exists Medical Devices Implanted Type Area Guest Relations Officer Device Identifier Shelf Expiration Date Model / Serial / Lot [employer] Inder Precision 50cm Trial Linear Straight Tip Preloaded Stylet .014in Va-2218-50e - [id number] - [id number] Implanted:Qty: 1 on 04/27/2023 by Rach Hayes MD at [facility] [place] Right: Back [employer] Inder 06/20/2024 SC-2218- 50E / [id number] / MODEL SC-2218- 50E Description:Model SC-2218-[address] 50cm 8 Contact Trial Lead kit Lead inserted L2-3 Rt side Lead to middle of T7 and bottom of T8 [employer] In[employer] Precision 50cm Trial Linear Straight Tip Preloaded Stylet .014in Va-2218-50e - [id number] - [id number] Implanted:Qty: 1 on 04/27/2023 by Rach Hayes MD at [facility] Neuroscience [place] Right: Back [employer] Inder 06/03/2024 SC-2218- 50E / [id number] / MODEL SC-2218- 50E Description:Linear ST 50 cm contact trial lead kit Model sc-2218-50E Inserted lead L2-3 lt side Lead to middle of T7 and bottom of T8 [employer] In[employer] Precision 50cm Linear Straight Tip Preloaded Enhanced Stylet Va-2218-50 - [id number] - [id number] Implanted:Qty: 1 on 07/27/2023 by Rach Hayes MD at [facility] N/A: Spine Thoracic [employer] Inder 06/25/2025 FL-2218- 50 / [id number] / [employer] Inder Clik X Napoleon Lead Spinal Cord Stimulation Systems Sc-4318 - [id number] Implanted:Qty: 1 on 07/27/2023 by Rach Hayes MD at [facility] N/A: Spine Thoracic [employer] Inder 06/02/2025 SC-4318 / / [id number] [employer] In[employer] Precision 50cm Linear Straight Tip Preloaded Enhanced Stylet Sc-2218-50 - [id number] - [id number] Implanted:Qty: 1 on 07/27/2023 by Rach Hayes MD at [facility] N/A: Spine Thoracic [employer] Inder 06/16/2025 [id number]- 50 / [id number] / [employer] Neuro- Kit Generator Neurostimulator Pain Management Spine 16 Electrode Wavewriter Alpha [id number] - [id number] - [id number] Implanted:Qty: 1 on 07/27/2023 by Rach Hayes MD at [facility] N/A: Spine Thoracic [employer] Neuro- [id number] 01/17/2025 [id number] / [id number] / [id number] Description:IN KIT FL-1240A [employer] Neuro- Alpha 16 Ipg Chrg Sys [facility]1240a - [id number] Implanted:Qty: 1 on 07/27/2023 by Rach Hayes MD at [facility] WSO2 Neuro- [id number] / / Procedures Procedure Name Priority Date/Time Associated Diagnosis Comments ECG 12-LEAD Routine 05/21/2024 12:41 PM CDT Paroxysmal atrial fibrillation (HCC) EGFR Routine 05/21/2024 12:35 PM CDT Paroxysmal atrial fibrillation (HCC) COMPREHENSIVE METABOLIC PANEL Routine 05/21/2024 12:35 PM CDT Paroxysmal atrial fibrillation (HCC) from Last 3 Months Results * ECG 12 lead (05/21/2024 12:41 PM CDT) 05/21/2024 12:4 1 PM CDT Marina Reddy TRANSPORTATION MUSEUM HELPER ECG ORDERABLES Final Re sult * eGFR (05/21/2024 12:35 PM CDT) eGFR 64 >=60 mL/min/1. 73 m2 Comment: Interpretive Data Reference Interval Normal >/= 90 mL/min/1.73m2 Mildly decreased* 60 - 89 mL/min/1.73m2 Mildly to moderately decreased 45 - 59 mL/min/1.73m2 Moderately to severely decreased 30 - 44 mL/min/1.73m2 Severely decreased 15 - 29 mL/min/1.73m2 Kidney Failure < 15 mL/min/1.73m2 *Relative to young adult level Estimated glomerular filtration rate is determined by the 2020 CKD-EPI equation recommended by the National Kidney Foundation (A Unifying Approach to GFR Estimation: Recommendations of the NKF-ASK Task Force on Reassessing the Inclusion of Race in Diagnosing Kidney Disease, JASN 2020). The CKD-EPI equation should not be used for patients with unstable renal function and has not been validated in children and those over 70. Current interpretive data was last reviewed 2020. Blood 05/21/2024 12:3 5 PM CDT 05/21/2024 2:05 PM CDT us Marina Reddy NP LAB BLOOD ORDERABLES Fin al Result [facility] Department [place] [address] * Comprehensive metabolic panel (05/21/2024 12:35 PM CDT) Pathologist [facility] Sodium 143 135 - 145 mmol/L Potassium, pl 4.5 3.3 - 4.9 mmol/L [facility] Chloride 104 97 - 110 mmol/L [facility] CO2 31 22 - 32 mmol/L [facility] Anion gap 8 2 - 15 mmol/L [facility] BUN 21 6 - 25 mg/dL [facility] Creatinine 0.96 0.60 - 1.10 mg/dL [facility] Glucose 86 70 - 199 mg/dL [facility] Comment: Interpretive Data Fasting glucose >/= 126 mg/dl is diagnostic for diabetes. Fasting is defined as no caloric intake for at least 8 hours. Fasting glucose between 100 mg/dl to 125 mg/dl is diagnostic of prediabetes. In a patient with classic symptoms of hyperglycemia or hyperglycemic crisis, a random glucose >/= 200 mg/dl is diagnostic for diabetes. In the absence of unequivocal hyperglycemia, results should be confirmed by repeat testing. The classification and Diagnosis of Diabetes Diabetes Care 2021; 46: S19-S40. Current interpretive data was last revised 2022. Calcium 9.7 8.5 - 10.3 mg/dL [facility] Bilirubin, total 0.4 0.1 - 1.2 mg/dL [facility] Protein, pl 7.3 6.5 - 8.5 g/dL [facility] Albumin 4.1 3.5 - 5.0 g/dL [facility] Alk phos 89 40 - 130 Units/L [facility] ALT 12 7 - 45 Units/L [facility] AST 22 10 - 45 Units/L [facility] Blood 05/21/2024 12:3 5 PM CDT 05/21/2024 1:56 PM CDT us Marina Reddy NP LAB BLOOD ORDERABLES Fin al Result [facility] Department [place] [address] from Last 3 Months Insurance [facility] MEDICARE ADVANTAGE [facility] MEDICARE ADVANTAGE [facility] MEDICARE ADVANTAGE Care Teams Distributing Clerk Relationship Specialty Start Date End Date Maria Fernanda Wilde MD [address] [place] [address] PCP - General Family Medicine 05/21/24 Rach Hayes MD [facility] [address] Consulting Physician Pain Management 05/05/21 Neeta Rodriguez TRANSPORTATION MUSEUM HELPER [address] [place] [address] [address] Referring Physician Orthopedic Surgery 05/22/21 Guru Florez MD PhD [address] [place] [address] [address] [place] [address] Referring Physician Cardiology 08/19/22 Yury Sheridan MD [address] [facility] [address] [place] [address] Consulting Physician Orthopedic Surgery 09/30/22 Albaro Hickman PA [address] [facility] [address] [place] [address] Physician Ceramic Saw Tender Physician Ceramic Saw Tender 10/08/22 Tello Phipps MD [address] [facility] [address] [place] [address] Referring Physician Orthopedic Surgery 04/14/23
--- OUTSIDE RECORDS SUMMARY | 2024-05-30 15:23 | XMS_ITS | Encounter Summary ---
Author Organization [facility] Address [address] [place] [address] Phone Care Team Providers Care Lodging Facilities Manager Name Role Phone Asa Farias MD Primary Care Provider [phone] Albaro Hickman Primary Care Provider Rach Hayes MD Unavailable Neeta Rodriguez NP Unavailable [phone] Guru Florez MD PhD Unavailable [phone] Yury Sheridan MD Unavailable + [phone] Crow Bernardo MD Primary Care Provider + [phone] Albaro Hickman Unavailable [phone] Tello Phipps MD Unavailable [phone] Rupert Stevens DO Primary Care Provider [phone] Maria Fernanda Wilde MD Primary Care Provider + [phone] Maria Ferannda Wilde MD Primary Care Provider Encounter Details Date Type Department Care Team (Late st Contact Info) Description 07/15/2016 Orders Only [facility] CAR [facility]INCONV Provider, MD [facility] [place] [address] Social History Tobacco Use Types Packs/Day Years Used Date Smoking Tobacco: Never Assessed Comments Unknown Sex and Gender Information Value Date Recorded Sex Assigned at Not on file 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 [facility] Provider CV CARDIAC SERVICES PROCE DURES Final Result * CARDIOLOGY REPORT (07/15/2016) Anatomical Region Laterality Modality Other Narrative 07/15/2016 Ordered by an unspecified provider. us Historical Provider CV CARDIAC SERVICES PROCE DURES Final Result documented in this encounter Visit Diagnoses Not on filedocumented in this encounter Care Teams Lodging Facilities Manager Relationship Specialty Start Date End Date Asa Farias MD PCP - General 07/20/16 05/09/18 Albaro Hickman PA [address] [place] [address] PCP - General Physician Repairer Auto Clocks 05/10/18 10/07/22 Crow Bernardo MD [address] [address] PCP - General Internal Medicine 10/08/22 08/11/23 Rupert Stevens DO [address] [address] PCP - General Internal Medicine 08/12/23 01/17/24 Maria Fernanda Wilde MD [address] [facility] [address] [place] [address] PCP - General Family Medicine 01/18/24 05/20/24 Maria Fernanda Wilde MD [address] [address] PCP - General Family Medicine 05/21/24 Rach Hayes MD [address] [place] [address] [facility] [address] Consulting Physician Pain Management 05/05/21 Neeta Rodriguez NP [address] [place] [address] [address] Referring Physician Orthopedic Surgery 05/22/21 Guru Florez MD PhD [address] [place] [address] [address] Referring Physician Cardiology 08/19/22 Yury Sheridan MD [address] [place] [address] [address] Consulting Physician Orthopedic Surgery 09/30/22 Albaro Hickman PA [address] [address] Physician Repairer Auto Clocks Physician Repairer Auto Clocks 10/08/22 Tello Phipps MD [address] [place] [address] [address] Referring Physician Orthopedic Surgery 04/14/23 documented as of this encounter
--- OUTSIDE RECORDS SUMMARY | 2024-05-30 15:23 | XMS_ITS | Encounter Summary ---
Author Organization [facility] Address [address] [place] [address] Phone Care Team Providers Care Casting Agent Name Role Phone Asa Farias MD Primary Care Provider [phone] Albaro Hickman Primary Care Provider Rach Hayes MD Unavailable Neeta Rodriguez NP Unavailable [phone] Guru Florez MD PhD Unavailable [phone] Yury Sheridan MD Unavailable + [phone] Crow Bernardo MD Primary Care Provider + [phone] Albaro Hickman Unavailable [phone] Tello Phipps MD Unavailable [phone] Rupert Stevens DO Primary Care Provider [phone] Maria Fernanda Wilde MD Primary Care Provider + [phone] Maria Fernanda Wilde MD Primary Care Provider Encounter Details Date Type Department Care Team (Late st Contact Info) Description 07/28/2016 Orders Only [facility] CAR CLINCONV Provider, MD Luis [facility] [place] [address] Social History Tobacco Use Types Packs/Day Years Used Date Smoking Tobacco: Never Comments Unknown Sex and Gender Information Value Date Recorded Sex Assigned at Not on file 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 Historical Provider CV CARDIAC SERVICES PROCE DURES Final Result * CARDIOLOGY REPORT (07/28/2016) Anatomical Region Laterality Modality Other Narrative 07/28/2016 Ordered by an unspecified provider. us Historical Provider CV CARDIAC SERVICES PROCE DURES Final Result documented in this encounter Visit Diagnoses Not on filedocumented in this encounter Care Teams Casting Agent Relationship Specialty Start Date End Date Asa Farias MD PCP - General 07/20/16 05/09/18 Albaro Hickman PA [address] [place] [address] [place] [address] PCP - General Physician Molasses Coloring Operator 05/10/18 10/07/22 Crow Bernardo MD [address] [address] PCP - General Internal Medicine 10/08/22 08/11/23 Rupert Stevens DO [address] [address] PCP - General Internal Medicine 08/12/23 01/17/24 Maria Fernanda Wilde MD [facility] [address] [place] [address] PCP - General Family Medicine 01/18/24 05/20/24 Maria Fernanda Wilde MD [address] [address] PCP - General Family Medicine 05/21/24 Rach Hayes MD [address] [place] [address] [facility] [address] Consulting Physician Pain Management 05/05/21 Neeta Rodriguez NP [address] [place] [address] DR [address] [place] [address] Referring Physician Orthopedic Surgery 05/22/21 Guru Florez MD PhD [address] [place] [address] [address] [place] [address] Referring Physician Cardiology 08/19/22 Yury Sheridan MD [address] [place] [address] DR [address] [place] [address] Consulting Physician Orthopedic Surgery 09/30/22 Albaro Hickman PA [address] [id number] Physician Molasses Coloring Operator Physician Molasses Coloring Operator 10/08/22 Tello Phipps MD [address] [place] [address] [address] [place] [address] Referring Physician Orthopedic Surgery 04/14/23 documented as of this encounter
--- OUTSIDE RECORDS SUMMARY | 2024-05-30 15:23 | XMS_ITS | Encounter Summary ---
Author Organization [facility] Address [address] [place] [address] Phone Care Team Providers Care Lsw Name Role Phone Asa Farias MD Primary Care Provider [phone] Albaro Hickman Primary Care Provider Rach Hayes MD Unavailable Neeta Rodriguez NP Unavailable [phone] Guru Florez MD PhD Unavailable [phone] Yury Sheridan MD Unavailable + [phone] Crow Bernardo MD Primary Care Provider + [phone] Albaro Hickman Unavailable +[phone] Tello Phipps MD Unavailable [phone] Rupert Stevens DO Primary Care Provider [phone] Maria Fernanda Wilde MD Primary Care Provider + [phone] Maria Fernanda Wilde MD Primary Care Provider Encounter Details Date Type Department Care Team (Late st Contact Info) Description 08/26/2016 Orders Only [facility] Provider, [place] [address] Social History Tobacco Use Types Packs/Day Years Used Date Smoking Tobacco: Never Comments Unknown Sex and Gender Information Value Date Recorded Sex Assigned at Not on file 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 Historical Provider CV CARDIAC SERVICES PROCE DURES Final Result * CARDIOLOGY REPORT (08/26/2016) Anatomical Region Laterality Modality Other Narrative 08/26/2016 Ordered by an unspecified provider. us Historical Provider CV CARDIAC SERVICES PROCE DURES Final Result documented in this encounter Visit Diagnoses Not on filedocumented in this encounter Care Teams Lsw Relationship Specialty Start Date End Date Asa Farias MD PCP - General 07/20/16 05/09/18 Albaro Hickman PA [address] [place] [address] [place] [address] PCP - General Physician Jewelry Appraiser 05/10/18 10/07/22 Crow Bernardo MD [address] [address] PCP - General Internal Medicine 10/08/22 08/11/23 Rupert Stevens DO [address] [address] PCP - General Internal Medicine 08/12/23 01/17/24 Maria Fernanda Wilde MD [facility] [address] [place] [address] PCP - General Family Medicine 01/18/24 05/20/24 Maria Fernanda Wilde MD [address] [address] PCP - General Family Medicine 05/21/24 Rach Hayes MD [address] [place] [address] [facility] [address] Consulting Physician Pain Management 05/05/21 Neeta Rodriguez NP [address] [place] [address] [address] [place] [address] Referring Physician Orthopedic Surgery 05/22/21 Guru Florez MD PhD [address] [place] [address] [address] [place] [address] Referring Physician Cardiology 08/19/22 Yury Sheridan MD [address] [place] [address] [address] [place] [address] Consulting Physician Orthopedic Surgery 09/30/22 Albaro Hickman PA [address] [id number] Physician Jewelry Appraiser Physician Jewelry Appraiser 10/08/22 Tello Phipps MD [address] [place] [address] [address] [place] [address] Referring Physician Orthopedic Surgery 04/14/23 documented as of this encounter
--- OUTSIDE RECORDS SUMMARY | 2024-05-30 15:23 | XMS_ITS | Encounter Summary ---
Author Organization [facility] Address [address] [place] [address] Phone Care Team Providers Care Woods Warden Name Role Phone Asa Farias MD Primary Care Provider [phone] Albaro Hickman Primary Care Provider Rach Hayes MD Unavailable Neeta Rodriguez NP Unavailable [phone] Guru Florez MD PhD Unavailable [phone] Yury Sheridan MD Unavailable + [phone] Crow Bernardo MD Primary Care Provider + [phone] Albaro Hickman Unavailable [phone] Tello Phipps MD Unavailable [phone] Rupert Stevens DO Primary Care Provider [phone] Maria Fernanda Wilde MD Primary Care Provider + [phone] Maria Fernanda Wilde MD Primary Care Provider Encounter Details Date Type Department Care Team (Late st Contact Info) Description 12/09/2016 Orders Only [facility] Provider, MD Luis [facility] [place] [address] Social History Tobacco Use Types Packs/Day Years Used Date Smoking Tobacco: Never Comments Unknown Sex and Gender Information Value Date Recorded Sex Assigned at Not on file 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 Historical Provider CV CARDIAC SERVICES PROCE DURES Final Result * CARDIOLOGY REPORT (12/09/2016) Anatomical Region Laterality Modality Other Narrative 12/09/2016 Ordered by an unspecified provider. us Historical Provider CV CARDIAC SERVICES PROCE DURES Final Result documented in this encounter Visit Diagnoses Not on filedocumented in this encounter Care Teams Woods Warden Relationship Specialty Start Date End Date Asa Farias MD PCP - General 07/20/16 05/09/18 Albaro Hickman PA [address] [place] [address] [place] [address] PCP - General Physician Vinyl Installer 05/10/18 10/07/22 Crow Bernardo MD [address] [address] PCP - General Internal Medicine 10/08/22 08/11/23 Rupert Stevens DO [address] [address] PCP - General Internal Medicine 08/12/23 01/17/[address] [facility] [address] [place] [address] PCP - General Family Medicine 01/18/24 05/20/24 Maria Fernanda Wilde MD [address] [address] PCP - General Family Medicine 05/21/24 Rach Hayes MD [address] [place] [address] [facility] [address] Consulting Physician Pain Management 05/05/21 Neeta Rodriguez NP [address] [place] [address] [address] [place] [address] Referring Physician Orthopedic Surgery 05/22/21 Guru Florez MD PhD [address] [place] [address] [address] [place] [address] Referring Physician Cardiology 08/19/22 Yury Sheridan MD [address] [place] [address] [address] [place] [address] Consulting Physician Orthopedic Surgery 09/30/22 Albaro Hickman PA [address] [id number] Physician Vinyl Installer Physician Vinyl Installer 10/08/22 Tello Phipps MD [address] [place] [address] [address] [place] [address] Referring Physician Orthopedic Surgery 04/14/23 documented as of this encounter
--- OUTSIDE RECORDS SUMMARY | 2024-05-30 15:23 | XMS_ITS | Data Portability ---
Author Organization [place] [facility] OFFICE Address [address] [place] [address] Care Team Providers Care Water Trainer Name Role Phone ZENAIDA CALZADA Primary Care Provider BUCK LOPEZ Senior Accounting Clerk [phone] Assessment No assessment recorded. Plan of Treatment Reminders Order Date Submit Date Provider Last Modified By Organization Details Last Modified Time Details Appointments None recorded . Lab None recorded . Referral None recorded . Procedures None recorded . Surgeries None recorded . Imaging electroc ardiogra m 2018 019 neela Not available 9 22:39:32 Medication Orders None recorded . Patient TargetsNo targets recorded. Patient Instructions Encounter Date Encounter Id Patient Instructions Last Modified By Organization Details Last Modified Time 04/04/2018 [id number] Weight loss 20 pounds Exercise advised Low cholesterol diet advised Low sodium diet advised. [email or web address] Not available 04/04/2018 22:39:31 Reason for Referral None Reported. Results Created Date Observation Date Name Description Value Unit Range Abnormal Flag Note LastModifiedBy Organization Detail LastModifiedTime 04/04/1904/04/2018 teofilo hawkins am Result EKG :Low voltag e , chest leads ,Flat T waves , anteri or leads. Not Available Shamar Curiel MD [address] [facility] [address] [place], [place], [address], 04/04/2018 16:35:21 04/04/19 19 03/28/2018 XR, chest , 1 view No observ ation record ed. [email or web address] Not Available 2018 17:38:48 04/04/19 19 04/04/2018 teofilo hawkins am No observ ation record ed. [email or web address] Not Available 2018 17:35:29 04/04/19 19 03/29/2018 US, echoc ardio gram No observ ation record ed. [email or web address] Not Available 2018 11:17:46 04/04/19 19 03/28/2018 teofilo hawkins am No observ ation record ed. [email or web address] Not Available 2018 11:20:30 Result Notes None recorded. Problems Name Problem SNOMED Code Status Onset Date Resolution Date Notes Provider Name and Address Organization Details Recorded Time Palpitations 44948694 Active 2018 Hala Grace null, [place] - [facility] 9 11:21:40 Supraventricul ar tachycardia 0858669 Active 2018 Hala Grace [place], [place] - [facility] 9 11:21:59 Migraine 03658950 Active 2018 Hala [place], [place] - [facility] 9 11:22:34 Arthritis 6660259 Active 2018 Hala [place] - [facility] 9 11:22:41 High troponin I level 814786377 Active 2018 Hala Grace null, [place] - [facility] 9 11:27:10 Problem Notes None recorded. Procedures Surgical History None recorded. Imaging Results Imaging Date Name Status LastModified by Organization Details LastModified Time 03/28/2018 XR, chest, 1 view completed Informa tion not available 04/04/2018 17:38:48 04/04/2018 electrocardiogram completed Informa tion not available 04/04/2018 17:35:29 03/29/2018 US, echocardiogram completed Inform ation not available 04/16/2018 11:17:46 03/28/2018 electrocardiogram completed Informa tion not available 04/16/2018 11:20:30 Procedure Notes None recorded. Medical Equipment None Reported. Allergies Allergen ID Allergen Name Allergen Category Reaction Reaction Severity Criticality Documentation Date Start Date Code Code System Note Provider Name and Address Organization Details Recorded Time 7751 diclofena c Not available Not available Not available Not available 04/16/2018 3355 RxNorm Hala Grace null, [place] - [facility] 9 11:23:09 7752 erythromy matthew medicatio n Not available Not available Not available 04/16/2018 4053 RxNorm Monisha Edwards [facility] 9 11:23:19 7753 piroxicam medicatio n Not available Not available Not available 04/16/2018 8356 RxNorm Monisha Edwards [facility] 9 11:23:29 7754 Substance with sulfonami de structure and antibacte rial mechanism of action (substanc e) medicatio n Not available Not available Not available 04/16/2018 34261 8003 SNOMED Monisha Edwards [facility] 9 11:23:36 7755 acetamino phen medicatio n Not available Not available Not available 04/16/2018 161 RxNorm Monisha Edwards [facility] 9 11:23:44 7756 codeine medicatio n Not available Not available Not available 04/16/2018 2670 RxNorm Monisha Edwards [facility] 9 11:23:58 Medications Name Sig Start Date Stop Date Status Note LastModified by Organization Details LastModified Time Neurontin 300 mg capsule Take 1 capsule by oral route. active Not Available Not Available No t Available hydrocodone 5 mg-acetaminop hen 325 mg tablet active NOT ON MED LIST; [place] Not Available Not Available Not Available prednisone 5 mg tablet Take 1 tablet every day by oral route. active Not Available Not Available No t Available propranolol ER 80 mg capsule,24 hr,extended release Take 1 capsule every day by oral route as directed. active Not Available Not Available No t Available Nasacort active Not Available Not Avai lable Not Available Zorvolex 18 mg capsule Take 1 capsule twice a day by oral route as needed. active Not Available Not Available No t Available Vitals Date Recorded Body weight Body mass index (BMI) Body height Oxygen saturation Oxygen saturation in Arterial blood by Pulse oximetry Heart rate Systolic blood pressure Diastolic blood pressure Provider Name and Address Organization Details Last Updated DateTime 9 69725.2 9 g 34 kg/m2 162.56 cm 96 % 96 % 77 /min 160 mm[Hg] 98 mm[Hg] DEMETRIO Chopra [place] - [facility] 9 16:46:26 Social History Question Answer Notes LastModified by Organizat ion Details LastModified Time Tobacco Smoking Status Never Smoker Not Available [employer] 12/25/2019 03:30:41 What Is Your Level Of Alcohol Consumption? Occasional 20 Years [id number] Information not available 12/25/2019 What Is Your Level Of Caffeine Consumption? Moderate [id number] Information not available 12/25/2019 How Much Tobacco Do You Chew? None [id number] Information not available 12/25/2019 What Type Of Diet Are You Following? REGULAR [id number] Information not available 12/25/2019 Live Alone Or With Others? With Others [facility] Information not available 04/04/2018 [facility] not available 04/04/2018 What Was The Date Of Your Most Recent Tobacco Screening? 04/04/2018 [id number] Information not available 12/25/2019 How Many Children Do You Have? 1 [id number] Information not available 12/25/2019 How Much Tobacco Do You Smoke? No [id number] Information not available 12/25/2019 General Stress Level Medium [facility] Information not available 04/04/2018 Sex: Unknown Functional Status Question Answer Note LastModified by Organization D etails LastModified Time What is your exercise level? None [id number] Information not available 12/25/2019 Mental Status None recorded. Family History Nothing Reported. Medical History Condition Response Sleep Apnea Y Gynecological HistoryNo gynecological history recorded. Obstetrics History GPAL:G 0 P 0 0 0 0 Past Encounters Encounter ID Performer Location Encounter Start Date Encounter Closed Date Diagnosis/Indication Diagnosis SNOMED-CT Code Diagnosis ICD10 Code Diagnosis Note [id number] Shamar Curiel MD [place] OFF[facility] [place] [address] 04/04/2018 15:56:33 04/04/2018 22:39:59 Supraventricular tachycardia 7422763 I47.1 On Inderal nowcaused NSTEMI, would recommend ablation Essential hypertension 99123334 I10 Blood pressure is elevated today, but this is only one reading, will keep close follow up, and consider medication change if blood pressure is still elevated next visit. Acute non- ST segment elevation myocardial infarction 629985818 I21.4 cath was negativeKe ep on [facility] Concerns Section Related Observation LastModified by Organization Detai ls LastModified Time None Recorded Concern Status LastModified by Organization Details LastModified Time None Recorded Advance Directives Directive None Recorded Payers Encounter Date Sequence Insurance Name Policy Number Policy [place] Covered Member ID [place] Member ID Guarantor Name 04/04/2018 1 [facility] [place] [id number] Jessica Wiliam Ferrer [id number] Jessica Ferrer Notes Date Note Type Note Provider Name and Address Organization Details Recorded Time 04/04/2018 text/html CC: Palpitation6 2 years-old woman with history of presents for cardiac follow up, she was at [facility] with SVT, and had NSTEMI with elevated troponin, had a cath with normal coronaries, now she feels well. She denied any chest pain, shortness of breath, orthopnea, dizziness, palpitation, or syncope Results from this visit, or from the past: EKG 04/04/18 :Low voltage , chest leads ,Flat T waves , anterior leads.03/24/18 cath, normal cors and Normal Left ventricular systolic function Shamar Curiel MD [address] [place], [address], [place] [facility] 04/04/2018 22:39:57 OBGyn Episode No OBEpisode recorded.
--- OUTSIDE RECORDS SUMMARY | 2024-05-30 15:23 | XMS_ITS | Encounter Summary ---
Author Organization [facility] Address [address] [place] [address] Phone Care Team Providers Care Pet Resort Concierge Name Role Phone Asa Farias MD Primary Care Provider [phone] Albaro Hickman Primary Care Provider Rach Hayes MD Unavailable Neeta Rodriguez NP Unavailable [phone] Guru Florez MD PhD Unavailable [phone] Yury Sheridan MD Unavailable + [phone] Crow Bernardo MD Primary Care Provider + [phone] Albaro Hickman Unavailable [phone] Tello Phipps MD Unavailable [phone] Rupert Stevens DO Primary Care Provider [phone] Maria Fernanda Wilde MD Primary Care Provider + [phone] Maria Fernanda Wilde MD Primary Care Provider Encounter Details Date Type Department Care Team (Late st Contact Info) Description 07/07/2016 Orders Only [facility]V Provider, MD Luis [facility] [place] [address] Social History Tobacco Use Types Packs/Day Years Used Date Smoking Tobacco: Never Assessed Comments Unknown Sex and Gender Information Value Date Recorded Sex Assigned at Not on file 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 [facility] [place] [facility] Provider CV CARDIAC SERVICES PROCE DURES Final Result * CARDIOLOGY REPORT (07/07/2016) Anatomical Region Laterality Modality Other Narrative 07/07/2016 Ordered by an unspecified provider. us Historical Provider CV CARDIAC SERVICES PROCE DURES Final Result documented in this encounter Visit Diagnoses Not on filedocumented in this encounter Care Teams Pet Resort Concierge Relationship Specialty Start Date End Date Asa Farias MD PCP - General 07/20/16 05/09/18 Albaro Hickman PA [address] [place] [address] PCP - General Physician Dispensing Optician 05/10/18 10/07/22 Crow Bernardo MD [address] [address] PCP - General Internal Medicine 10/08/22 08/11/23 Rupert Stevens DO [address] [place] [address] PCP - General Internal Medicine 08/12/23 01/17/24 Maria Fernanda Wilde MD [address] [facility] [address] [place] [address] PCP - General Family Medicine 01/18/24 05/20/24 Maria Fernanda Wilde MD [address] [address] PCP - General Family Medicine 05/21/24 Rach Hayes MD [address] [place] [address] [facility] [address] Consulting Physician Pain Management 05/05/21 Neeta Rodriguez NP [address] [place] [address] [address] Referring Physician Orthopedic Surgery 05/22/21 Guru Florez MD PhD [address] [place] [address] [address] Referring Physician Cardiology 08/19/22 Yury Sheridan MD [address] [place] [address] [address] Consulting Physician Orthopedic Surgery 09/30/22 Albaro Hickman PA [address] [address] Physician Dispensing Optician Physician Dispensing Optician 10/08/22 Tello Phipps MD [address] [place] [address] [address] Referring Physician Orthopedic Surgery 04/14/23 documented as of this encounter
--- OUTSIDE RECORDS SUMMARY | 2024-05-30 15:23 | XMS_ITS | Encounter Summary ---
Author Organization [facility] Address [address] [place] [address] Phone Care Team Providers Care Electronic Design Engineer Name Role Phone Asa Farias MD Primary Care Provider [phone] Albaro Hickman Primary Care Provider Rach Hayes MD Unavailable Neeta Rodriguez NP Unavailable [phone] Guru Florez MD PhD Unavailable +[phone] Yury Sheridan MD Unavailable + [phone] Crow Bernardo MD Primary Care Provider + [phone] Albaro Hickman Unavailable +[phone] Tello Phipps MD Unavailable +[phone] Rupert Stevens DO Primary Care Provider +[phone] Maria Fernanda Wilde MD Primary Care Provider + [phone] Maria Fernanda Wilde MD Primary Care Provider Encounter Details Date Type Department Care Team (Late st Contact Info) Description 08/03/2016 Orders Only [facility] Provider, MD Luis [facility] [place] [address] Social History Tobacco Use Types Packs/Day Years Used Date Smoking Tobacco: Never Comments Unknown Sex and Gender Information Value Date Recorded Sex Assigned at Not on file 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 Historical Provider CV CARDIAC SERVICES PROCE DURES Final Result * CARDIOLOGY REPORT (08/03/2016) Anatomical Region Laterality Modality Other Narrative 08/03/2016 Ordered by an unspecified provider. us Historical Provider CV CARDIAC SERVICES PROCE DURES Final Result documented in this encounter Visit Diagnoses Not on filedocumented in this encounter Care Teams Electronic Design Engineer Relationship Specialty Start Date End Date Asa Farias MD PCP - General 07/20/16 05/09/18 Albaro Hickman PA [address] [place] [address] [place] [address] PCP - General Physician Benefits Assistant 05/10/18 10/07/22 Crow Bernardo MD [address] [address] PCP - General Internal Medicine 10/08/22 08/11/23 Rupert Stevens DO [address] [address] PCP - General Internal Medicine 08/12/23 01/17/24 Maria Fernanda Wilde MD [facility] [address] [place] [address] PCP - General Family Medicine 01/18/24 05/20/24 Maria Fernanda Wilde MD [address] [address] PCP - General Family Medicine 05/21/24 Rach Hayes MD [address] [place] [address] [facility] [address] Consulting Physician Pain Management 05/05/21 Neeta Rodriguez NP [address] [place] [address] [address] [place] [address] Referring Physician Orthopedic Surgery 05/22/21 Guru Florez MD PhD [address] [place] [address] [address] [place] [address] Referring Physician Cardiology 08/19/22 Yury Sheridan MD [address] [place] [address] [address] [place] [address] Consulting Physician Orthopedic Surgery 09/30/22 Albaro Hickman PA [address] [id number] Physician Benefits Assistant Physician Benefits Assistant 10/08/22 Tello Phipps MD [address] [place] [address] [address] [place] [address] Referring Physician Orthopedic Surgery 04/14/23 documented as of this encounter
--- OUTSIDE RECORDS SUMMARY | 2024-05-30 15:23 | XMS_ITS | Encounter Summary ---
Author Organization [facility] Address [address] [place] [address] Phone Care Team Providers Care Staffing Branch Manager Name Role Phone Asa Farias MD Primary Care Provider [phone] Albaro Hickman Primary Care Provider Rach Hayes MD Unavailable Neeta Rodriguez NP Unavailable +[phone] Guru Florez MD PhD Unavailable [phone] Yury Sheridan MD Unavailable + [phone] Crow Bernardo MD Primary Care Provider + [phone] Albaro Hickman Unavailable +[phone] Tello Phipps MD Unavailable +[phone] Rupert Stevens DO Primary Care Provider [phone] Maria Fernanda Wilde MD Primary Care Provider + [phone] Maria Fernanda Wilde MD Primary Care Provider Encounter Details Date Type Department Care Team (Late st Contact Info) Description 11/25/2016 Orders Only [facility] Provider, MD Luis [facility] [place] [address] Social History Tobacco Use Types Packs/Day Years Used Date Smoking Tobacco: Never Comments Unknown Sex and Gender Information Value Date Recorded Sex Assigned at Not on file Legal 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 Historical Provider CV CARDIAC SERVICES PROCE DURES Final Result * CARDIOLOGY REPORT (11/25/2016) Anatomical Region Laterality Modality Other Narrative 11/25/2016 Ordered by an unspecified provider. us Historical Provider CV CARDIAC SERVICES PROCE DURES Final Result documented in this encounter Visit Diagnoses Not on filedocumented in this encounter Care Teams Staffing Branch Manager Relationship Specialty Start Date End Date Asa Farias MD PCP - General 07/20/16 05/09/18 Albaro Hickman PA [address] [place] [address] [place] [address] PCP - General Physician Sample Builder 05/10/18 10/07/22 Crow Bernardo MD [address] [address] PCP - General Internal Medicine 10/08/22 08/11/23 Rupert Stevens DO [address] [address] PCP - General Internal Medicine 08/12/23 01/17/24 Maria Fernanda Wilde MD [facility] [address] [place] [address] PCP - General Family Medicine 01/18/24 05/20/24 Maria Fernanda Wilde MD [address] [address] PCP - General Family Medicine 05/21/24 Rach Hayes MD [address] [place] [address] [facility] [address] Consulting Physician Pain Management 05/05/21 Neeta Rodriguez NP [address] [place] [address] [address] [place] [address] Referring Physician Orthopedic Surgery 05/22/21 Guru Florez MD PhD [address] [place] [address] [address] [place] [address] Referring Physician Cardiology 08/19/22 Yury Sheridan MD [address] [place] [address] [address] [place] [address] Consulting Physician Orthopedic Surgery 09/30/22 Albaro Hickman PA [address] [id number] Physician Sample Builder Physician Sample Builder 10/08/22 Tello Phipps MD [address] [place] [address] [address] [place] [address] Referring Physician Orthopedic Surgery 04/14/23 documented as of this encounter
--- OUTSIDE RECORDS SUMMARY | 2024-05-30 15:23 | XMS_ITS | Encounter Summary ---
Author Organization [facility] Address [address] [place] [address] Phone Care Team Providers Care Manager Php Name Role Phone Asa Farias MD Primary Care Provider [phone] Albaro Hickman Primary Care Provider Rach Hayes MD Unavailable Neeta Rodriguez NP Unavailable [phone] Guru Florez MD PhD Unavailable [phone] Yury Sheridan MD Unavailable + [phone] Crow Bernardo MD Primary Care Provider + [phone] Albaro Hickman Unavailable +[phone] Tello Phipps MD Unavailable +[phone] Rupert Stevens DO Primary Care Provider +[phone] Maria Fernanda Wilde MD Primary Care Provider + [phone] Maria Fernanda Wilde MD Primary Care Provider Encounter Details Date Type Department Care Team (Late st Contact Info) Description 01/27/2016 Orders Only [facility] Provider, MD Luis [facility] [place] [address] Social History Tobacco Use Types Packs/Day Years Used Date Smoking Tobacco: Never Assessed Comments Unknown Sex and Gender Information Value Date Recorded Sex Assigned at Not on file 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 Historical Provider CV CARDIAC SERVICES PROCE DURES Final Result * CARDIOLOGY REPORT (01/27/2016) Anatomical Region Laterality Modality Other Narrative 01/27/2016 Ordered by an unspecified provider. us Historical Provider CV CARDIAC SERVICES PROCE DURES Final Result documented in this encounter Visit Diagnoses Not on filedocumented in this encounter Care Teams Manager Php Relationship Specialty Start Date End Date Asa Farias MD PCP - General 07/20/16 05/09/18 Albaro Hickman PA [address] [place] [address] PCP - General Physician Landscape Contractor 05/10/18 10/07/22 Crow Bernardo MD [address] [address] PCP - General Internal Medicine 10/08/22 08/11/23 Rupert Stevens DO [address] [address] PCP - General Internal Medicine 08/12/23 01/17/24 Maria Fernanda Wilde MD [address] [facility] [address] [place] [address] PCP - General Family Medicine 01/18/24 05/20/24 Maria Fernanda Wilde MD [address] [address] PCP - General Family Medicine 05/21/24 Rach Hayes MD [address] [place] [address] [facility] [address] Consulting Physician Pain Management 05/05/21 Neeta Rodriguez NP [address] [place] [address] [address] Referring Physician Orthopedic Surgery 05/22/21 Gruu Florez MD PhD [address] [place] [address] [address] Referring Physician Cardiology 08/19/22 Yury Sheridan MD [address] [place] [address] [address] Consulting Physician Orthopedic Surgery 09/30/22 Albaro Hickman PA [address] [address] Physician Landscape Contractor Physician Landscape Contractor 10/08/22 Tello Phipps MD [address] [place] [address] [address] Referring Physician Orthopedic Surgery 04/14/23 documented as of this encounter
--- OUTSIDE RECORDS SUMMARY | 2024-05-30 15:23 | XMS_ITS | Encounter Summary ---
Author Organization [facility] Address [address] [place] [address] Phone Care Team Providers Care Child Care Attendant Name Role Phone Asa Farias MD Primary Care Provider [phone] Albaro Hickman Primary Care Provider Rach Hayes MD Unavailable Neeta Rodriguez NP Unavailable +[phone] Guru Florez MD PhD Unavailable [phone] Yury Sheridan MD Unavailable + [phone] Crow Bernardo MD Primary Care Provider + [phone] Albaro Hickman Unavailable +[phone] Tello Phipps MD Unavailable +[phone] Rupert Stevens DO Primary Care Provider [phone] Maria Fernanda Wilde MD Primary Care Provider + [phone] Maria Fernanda Wilde MD Primary Care Provider Encounter Details Date Type Department Care Team (Late st Contact Info) Description 02/18/2016 Orders Only [facility] Provider, MD Luis [facility] [place] [address] Social History Tobacco Use Types Packs/Day Years Used Date Smoking Tobacco: Never Assessed Comments Unknown Sex and Gender Information Value Date Recorded Sex Assigned at Not on file 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 Historical Provider CV CARDIAC SERVICES PROCE DURES Final Result * CARDIOLOGY REPORT (02/18/2016) Anatomical Region Laterality Modality Other Narrative 02/18/2016 Ordered by an unspecified provider. us Historical Provider CV CARDIAC SERVICES PROCE DURES Final Result documented in this encounter Visit Diagnoses Not on filedocumented in this encounter Care Teams Child Care Attendant Relationship Specialty Start Date End Date Asa Farias MD PCP - General 07/20/16 05/09/18 Albaro Hickman PA [address] [place] [address] [place] [address] PCP - General Physician Well Flow Operator 05/10/18 10/07/22 Crow Bernardo MD [address] [address] PCP - General Internal Medicine 10/08/22 08/11/23 Rupert Stevens DO [address] [address] PCP - General Internal Medicine 08/12/23 01/17/24 Maria Fernanda Wilde MD [address] [facility] [address] [place] [address] PCP - General Family Medicine 01/18/24 05/20/24 Maria Fernanda Wilde MD [address] [address] PCP - General Family Medicine 05/21/24 Rach Hayes MD [address] [place] [address] [facility] [address] Consulting Physician Pain Management 05/05/21 Neeta Rodriguez NP [address] [place] [address] [address] Referring Physician Orthopedic Surgery 05/22/21 Guru Florez MD PhD [address] [place] [address] [address] Referring Physician Cardiology 08/19/22 Yury Sheridan MD [address] [place] [address] [address] Consulting Physician Orthopedic Surgery 09/30/22 Albaro Hickman PA [address] [address] Physician Well Flow Operator Physician Well Flow Operator 10/08/22 Tello Phipps MD [address] [place] [address] [address] Referring Physician Orthopedic Surgery 04/14/23 documented as of this encounter
--- OUTSIDE RECORDS SUMMARY | 2024-05-30 15:23 | XMS_ITS | Encounter Summary ---
Author Organization [facility] Address [address] [place] [address] Phone Care Team Providers Care Bathhouse Keeper Name Role Phone Asa Farias MD Primary Care Provider [phone] Albaro Hickman Primary Care Provider Rach Hayes MD Unavailable Neeta Rodriguez NP Unavailable [phone] Guru Florez MD PhD Unavailable [phone] Yury Sheridan MD Unavailable + [phone] Crow Bernardo MD Primary Care Provider + [phone] Albaro Hickman Unavailable +[phone] Tello Phipps MD Unavailable +[phone] Rupert Stevens DO Primary Care Provider [phone] Maria Fernanda Wilde MD Primary Care Provider + [phone] Maria Fernanda Wilde MD Primary Care Provider Encounter Details Date Type Department Care Team (Late st Contact Info) Description 06/14/2016 Orders Only [facility] Provider, MD Luis [place] [address] Social History Tobacco Use Types Packs/Day Years Used Date Smoking Tobacco: Never Assessed Comments Unknown Sex and Gender Information Value Date Recorded Sex Assigned at Not on file 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 [facility] Provider CV CARDIAC SERVICES PROCE DURES Final Result * CARDIOLOGY REPORT (06/14/2016) Anatomical Region Laterality Modality Other Narrative 06/14/2016 Ordered by an unspecified provider. us Historical Provider CV CARDIAC SERVICES PROCE DURES Final Result documented in this encounter Visit Diagnoses Not on filedocumented in this encounter Care Teams Bathhouse Keeper Relationship Specialty Start Date End Date Asa Farias MD PCP - General 07/20/16 05/09/18 Albaro Hickman PA [address] [place] [address] PCP - General Physician Freezer Worker 05/10/18 10/07/22 Crow Bernardo MD [address] [address] PCP - General Internal Medicine 10/08/22 08/11/23 Rupert Stevens DO [address] [address] PCP - General Internal Medicine 08/12/23 01/17/24 Maria Fernanda Wilde MD [address] [facility] [address] [place] [address] PCP - General Family Medicine 01/18/24 05/20/24 Maria Fernanda Wilde MD [address] [address] PCP - General Family Medicine 05/21/24 Rach Hayes MD [address] [place] [address] [facility] [address] Consulting Physician Pain Management 05/05/21 Neeta Rodriguez NP [address] [place] [address] [address] Referring Physician Orthopedic Surgery 05/22/21 Guru Florez MD PhD [address] [place] [address] [address] Referring Physician Cardiology 08/19/22 Yury Sheridan MD [address] [place] [address] [address] Consulting Physician Orthopedic Surgery 09/30/22 Albaro Hickman PA [address] [address] Physician Freezer Worker Physician Freezer Worker 10/08/22 Tello Phipps MD [address] [place] [address] [address] Referring Physician Orthopedic Surgery 04/14/23 documented as of this encounter
--- OUTSIDE RECORDS SUMMARY | 2024-05-30 15:23 | XMS_ITS | Encounter Summary ---
Author Organization [facility] Address [address] [place] [address] Phone Care Team Providers Care Sap Bw Bi Developer Name Role Phone Asa Farias MD Primary Care Provider [phone] Albaro Hickman Primary Care Provider Rach Hayes MD Unavailable Neeta Rodriguez NP Unavailable +[phone] Guru Florez MD PhD Unavailable [phone] Yury Sheridan MD Unavailable + [phone] Crow Bernardo MD Primary Care Provider + [phone] Albaro Hickman Unavailable +[phone] Tello Phipps MD Unavailable [phone] Rupert Stevens DO Primary Care Provider [phone] Maria Fernanda Wilde MD Primary Care Provider + [phone] Maria Fernanda Wilde MD Primary Care Provider Encounter Details Date Type Department Care Team (Late st Contact Info) Description 05/31/2016 Orders Only [facility] Provider, MD Luis [place] [address] Social History Tobacco Use Types Packs/Day Years Used Date Smoking Tobacco: Never Assessed Comments Unknown Sex and Gender Information Value Date Recorded Sex Assigned at Not on file 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 [facility] Provider CV CARDIAC SERVICES PROCE DURES Final Result * CARDIOLOGY REPORT (05/31/2016) Anatomical Region Laterality Modality Other Narrative 05/31/2016 Ordered by an unspecified provider. us Historical Provider CV CARDIAC SERVICES PROCE DURES Final Result documented in this encounter Visit Diagnoses Not on filedocumented in this encounter Care Teams Sap Bw Bi Developer Relationship Specialty Start Date End Date Asa Farias MD PCP - General 07/20/16 05/09/18 Albaro Hickman PA [address] [place] [address] PCP - General Physician Foreman/Project Manager 05/10/18 10/07/22 Crow Bernardo MD [address] [address] PCP - General Internal Medicine 10/08/22 08/11/23 Rupert Stevens DO [address] [address] PCP - General Internal Medicine 08/12/23 01/17/24 Maria Fernanda Wilde MD [address] [facility] [address] [place] [address] PCP - General Family Medicine 01/18/24 05/20/24 Maria Fernanda Wilde MD [address] [address] PCP - General Family Medicine 05/21/24 Rach Hayes MD [address] [place] [address] [facility] [address] Consulting Physician Pain Management 05/05/21 Neeta Rodriguez NP [address] [place] [address] [address] Referring Physician Orthopedic Surgery 05/22/21 Guru Florez MD PhD [address] [place] [address] [address] Referring Physician Cardiology 08/19/22 Yury Sheridan MD [address] [place] [address] [address] Consulting Physician Orthopedic Surgery 09/30/22 Albaro Hickman PA [address] [address] Physician Foreman/Project Manager Physician Foreman/Project Manager 10/08/22 Tello Phipps MD [address] [place] [address] [address] Referring Physician Orthopedic Surgery 04/14/23 documented as of this encounter
--- OUTSIDE RECORDS SUMMARY | 2024-05-30 15:23 | XMS_ITS | Encounter Summary ---
Author Organization [facility] Address [address] [place] [address] Phone Care Team Providers Care Cardiovascular Technologist Name Role Phone Asa Farias MD Primary Care Provider [phone] Albaro Hickman Primary Care Provider Rach Hayes MD Unavailable Neeta Rodriguez NP Unavailable [phone] Guru Florez MD PhD Unavailable [phone] Yury Sheridan MD Unavailable + [phone] Crow Bernardo MD Primary Care Provider + [phone] Albaro Hickman Unavailable +[phone] Tello Phipps MD Unavailable [phone] Rupert Stevens DO Primary Care Provider [phone] Maria Fernanda Wilde MD Primary Care Provider + [phone] Maria Fernanda Wilde MD Primary Care Provider Encounter Details Date Type Department Care Team (Late st Contact Info) Description 12/24/2016 Orders Only [facility] Provider, MD Luis [place] [address] Social History Tobacco Use Types Packs/Day Years Used Date Smoking Tobacco: Never Comments Unknown Sex and Gender Information Value Date Recorded Sex Assigned at Not on file 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 Historical Provider CV CARDIAC SERVICES PROCE DURES Final Result * CARDIOLOGY REPORT (12/24/2016) Anatomical Region Laterality Modality Other Narrative 12/24/2016 Ordered by an unspecified provider. us Historical Provider CV CARDIAC SERVICES PROCE DURES Final Result documented in this encounter Visit Diagnoses Not on filedocumented in this encounter Care Teams Cardiovascular Technologist Relationship Specialty Start Date End Date Asa Farias MD PCP - General 07/20/16 05/09/18 Albaro Hickman PA [address] [place] [address] [place] [address] PCP - General Physician Project Management It Specialist 05/10/18 10/07/22 Crow Bernardo MD [address] [address] PCP - General Internal Medicine 10/08/22 08/11/23 Rupert Stevens DO [address] [address] PCP - General Internal Medicine 08/12/23 01/17/24 Maria Fernanda Wilde MD [facility] [address] J[address] [place] [address] PCP - General Family Medicine 01/18/24 05/20/24 Maria Fernanda Wilde MD [address] [address] PCP - General Family Medicine 05/21/24 Rach Hayes MD [address] [place] [address] [facility] [address] Consulting Physician Pain Management 05/05/21 Neeta Rodriguez NP [address] [place] [address] DR [address] [place] [address] Referring Physician Orthopedic Surgery 05/22/21 Guru Florez MD PhD [address] [place] [address] DR [address] [place] [address] Referring Physician Cardiology 08/19/22 Yury Sheridan MD [address] [place] [address] [address] [place] [address] Consulting Physician Orthopedic Surgery 09/30/22 Albaro Hickman PA [address] [id number] Physician Project Management It Specialist Physician Project Management It Specialist 10/08/22 Tello Phipps MD [address] [place] [address] DR [address] [place] [address] Referring Physician Orthopedic Surgery 04/14/23 documented as of this encounter
--- OUTSIDE RECORDS SUMMARY | 2024-05-30 15:23 | XMS_ITS | Encounter Summary ---
Author Organization [facility] Address [address] [place] [address] Phone Care Team Providers Care Second Ride Fare Collector Name Role Phone Asa Farias MD Primary Care Provider [phone] Albaro Hickman Primary Care Provider Rach Hayes MD Unavailable Neeta Rodriguez NP Unavailable [phone] Guru Florez MD PhD Unavailable +[phone] Yury Sheridan MD Unavailable + [phone] Crow Bernardo MD Primary Care Provider + [phone] Albaro Hickman Unavailable +[phone] Tello Phipps MD Unavailable +[phone] Rupert Stevens DO Primary Care Provider [phone] Maria Fernanda Wilde MD Primary Care Provider + [phone] Maria Fernanda Wilde MD Primary Care Provider Encounter Details Date Type Department Care Team (Late st Contact Info) Description 09/07/2016 Orders Only [facility] Provider, MD Luis [facility] [place] [address] Social History Tobacco Use Types Packs/Day Years Used Date Smoking Tobacco: Never Comments Unknown Sex and Gender Information Value Date Recorded Sex Assigned at Not on file 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 Historical Provider CV CARDIAC SERVICES PROCE DURES Final Result * CARDIOLOGY REPORT (09/07/2016) Anatomical Region Laterality Modality Other Narrative 09/07/2016 Ordered by an unspecified provider. us Historical Provider CV CARDIAC SERVICES PROCE DURES Final Result documented in this encounter Visit Diagnoses Not on filedocumented in this encounter Care Teams Second Ride Fare Collector Relationship Specialty Start Date End Date Asa Farias MD PCP - General 07/20/16 05/09/18 Albaro Hickman PA [address] [place] [address] [place] [address] PCP - General Physician Technology Program Manager 05/10/18 10/07/22 Crow Bernardo MD [address] [address] PCP - General Internal Medicine 10/08/22 08/11/23 Rupert Stevens DO [address] [address] PCP - General Internal Medicine 08/12/23 01/17/24 Maria Fernanda Wilde MD [facility] [address] J[address]AM[address] [place] [address] PCP - General Family Medicine 01/18/24 05/20/24 Maria Fernanda Wilde MD [address] [address] PCP - General Family Medicine 05/21/24 Rach Hayes MD [address] [place] [address] [facility] [address] Consulting Physician Pain Management 05/05/21 Neeta Rodriguez NP [address] [place] [address] DR [address] [place] [address] Referring Physician Orthopedic Surgery 05/22/21 Guru Florez MD PhD [address] [place] [address] DR [address] [place] [address] Referring Physician Cardiology 08/19/22 Yury Sheridan MD [address] [place] [address] DR [address] [place] [address] Consulting Physician Orthopedic Surgery 09/30/22 Albaro Hickman PA [address] [id number] Physician Technology Program Manager Physician Technology Program Manager 10/08/22 Tello Phipps MD [address] [place] [address] DR [address] [place] [address] Referring Physician Orthopedic Surgery 04/14/23 documented as of this encounter
--- OUTSIDE RECORDS SUMMARY | 2024-05-30 15:23 | XMS_ITS | Referral Summary ---
Author Organization [facility] Address [address] [place] [address] Care Team Providers Care Tractor Operator Battery Name Role Phone Rach Hayes MD Unavailable Neeta Rodriguez NP Unavailable [phone] Guru Florez MD PhD Unavailable [phone] Yury Sheridan MD Unavailable [phone] Albaro Hickman Unavailable [phone] Tello Phipps MD Unavailable [phone] Maria Fernanda Wilde MD Primary Care Provider Encounters Date Type Department Care Team Description 05/21/2024 Results Follow-Up [facility] Cardiology [address] [facility] [address] [place] [address] Marina Reddy NP 05/21/2024 12:25 PM CDT Lab [facility] [address] [place] [address] [address] [place] [address] Paroxysmal atrial fibrillation (HCC) 05/21/2024 11:30 AM CDT Office Visit [facility] Cardiology [address] [facility] [address] [place] [address] Marina Reddy NP Paroxysmal atrial fibrillation (HCC) (Primary Dx) 05/10/2024 Telephone [facility] [address] [place] [address] Con Freitas MD 04/03/2024 Telephone [facility] [place] [facility] Medicine [facility] [address] [place] [address] Con Freitas MD Chair stair lift 04/03/2024 Telephone [facility] Cardiology [address] [place] [address] [place] [address] Marina Reddy NP 03/28/2024 Telephone [facility] [place] [facility] [address] [place] [address] Con Freitas MD gel inj from Last 3 Months Allergies Active Allergy Reactions Criticality Noted Date [...] vertigo 07/23/2010 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 Dizziness 04/25/2006 Immunizations Immunization Administration Dates Next Due Tdap 09/04/2023 Social History Tobacco Use Types Packs/Day Years [...] on file 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 Gender Identity Female 07/15/2022 2:23 PM CDT Sexual Orientation Choose not to disclose 2023 12:05 PM CDT Occupation Industry Job Start Date Job End Date retired Not on file Not on file Not on file Last Filed Vital Signs Vital Sign Reading [...] 05/21/2024 11:37 AM CDT Plan of Treatment Not on file Medical Devices Implanted Type Area Tongue Presser Device Identifier Shelf Expiration Date Model / Serial / Lot [employer] Inder Precision 50cm Trial Linear Straight Tip Preloaded Stylet .014in Sc-2218-50e - [id number] - [id number] Implanted:Qty: 1 on 04/27/2023 by Rach Hayes MD at [facility] Right: Back [employer] Inder 06/20/2024 SC-2218- 50E / [id number] / MODEL SC-2218- 50E Description:Model SC-2218-[address] 50cm 8 Contact Trial Lead kit Lead inserted L2-3 Rt side Lead to middle of T7 and bottom of T8 [employer] Inder Precision 50cm Trial Linear Straight Tip Preloaded Stylet .014in Wi-2218-50e - [id number] - [id number] Implanted:Qty: 1 on 04/27/2023 by Rach Hayes MD at [facility] Right: Back [employer] Inder 06/03/2024 SC-2218- 50E / [id number] / MODEL SC-2218- 50E Description:Linear ST 50 cm contact trial lead kit Model sc-2218-50E Inserted lead L2-3 lt side Lead to middle of T7 and bottom of T8 [employer] Inder Precision 50cm Linear Straight Tip Preloaded Enhanced Stylet Wi-2218-50 - [id number] - [id number] Implanted:Qty: 1 on 07/27/2023 by Rach Hayes MD at [facility] N/A: Spine Thoracic [employer] Inder 06/25/2025 [place]-2218- 50 / [id number] / [employer] Inder Clik X Dane Lead Spinal Cord Stimulation Systems Wi-4318 - [id number] Implanted:Qty: 1 on 07/27/2023 by Rach Hayes MD at [facility] N/A: Spine Thoracic [employer] Inder 06/02/2025 NY-4318 / / [id number] [employer] Inder Precision 50cm Linear Straight Tip Preloaded Enhanced Stylet Wi-2218-50 - [id number] - [id number] Implanted:Qty: 1 on 07/27/2023 by Rach Hayes MD at [facility] N/A: Spine Thoracic [employer] Inder 06/16/2025 [place]-2218- 50 / [id number] / [employer] Neuro- Kit Generator Neurostimulator Pain Management Spine 16 Electrode Wavewriter Alpha Wi-1216 - [id number] - [id number] Implanted:Qty: 1 on 07/27/2023 by Rach Hayes MD at [facility] N/A: Spine Thoracic [employer] Neuro- [id number] 01/17/2025 [place]-1216 / [id number] / [id number] Description:IN KIT [place]-1240A [employer] Neuro- Alpha 16 Ipg Chrg Sys Wi-1240a - [id number] Implanted:Qty: 1 on 07/27/2023 by Rach Hayes MD at [facility] Neuro- [place]-1240A / / Procedures Procedure Name Priority Date/Time Associated Diagnosis Comments ECG 12-LEAD Routine 05/21/2024 12:41 PM CDT Paroxysmal atrial fibrillation (HCC) EGFR Routine 05/21/2024 12:35 PM CDT Paroxysmal atrial fibrillation (HCC) COMPREHENSIVE METABOLIC PANEL Routine 05/21/2024 12:35 PM CDT Paroxysmal atrial fibrillation (HCC) from Last 3 Months Results * ECG 12 lead (05/21/2024 12:41 PM CDT) 05/21/2024 12:4 1 PM CDT Marina Reddy FLOW FLOOR ATTENDANT ECG ORDERABLES Final Re sult * eGFR [...] of Race in Diagnosing Kidney Disease, JASN 202). The CKD-EPI equation should not be used for patients with unstable renal function and has not been validated in children and those over 70. Current interpretive data was last reviewed 2020. Blood 05/21/2024 12:3 5 PM CDT 05/21/2024 2:05 PM CDT us Marina Reddy FLOW FLOOR ATTENDANT LAB BLOOD ORDERABLES Fin al Result [facility] Department [place] [address] * Comprehensive metabolic panel (05/21/2024 12:35 PM CDT) Sodium 143 135 - 145 mmol/L Potassium, pl 4.5 3.3 - 4.9 mmol/L [facility] Chloride 104 97 - 110 mmol/L [facility] CO2 31 22 - 32 mmol/L [facility] Anion gap 8 2 - 15 mmol/L [facility] BUN 21 6 - 25 mg/dL [facility] Creatinine 0.96 0.60 - 1.10 mg/dL [facility] Glucose 86 70 - 199 mg/dL [facility] Comment: Interpretive Data Fasting glucose >/= 126 [...] classification and Diagnosis of Diabetes Diabetes Care 202; 46: S19-S40. Current interpretive data was last revised 2022. Calcium 9.7 8.5 - 10.3 mg/dL [facility] Bilirubin, total 0.4 0.1 - 1.2 mg/dL [facility] Protein, pl 7.3 6.5 - 8.5 g/dL [facility] Albumin 4.1 3.5 - 5.0 g/dL [facility] Alk phos 89 40 - 130 Units/L [facility] ALT 12 7 - 45 Units/L [facility] AST 22 10 - 45 Units/L [facility] Blood 05/21/2024 12:3 5 PM CDT 05/21/2024 1:56 PM CDT us Marina Reddy NP LAB BLOOD ORDERABLES Fin al Result [facility] [place] [address] from Last 3 Months Insurance [facility] MED[facility] ADVANT[facility] Member Subscriber Plan / Payer (Ef fective 2020-Present) Name:Jessica Ferrer Relation to Subscriber:Self Name:Jessica Ferrer Payer ID:[id number] (NAIC) Type:[facility] MED[facility] Address: [place] [id number] UHC MEDICARE ADVANTAGE UHC MEDICARE ADVANTAGE Care Teams Tractor Operator Battery Relationship Specialty Start Date End Date Maria Fernanda Wilde MD [address] [address] PCP - General Family Medicine 05/21/24 Rach Hayes MD [facility] [address] Consulting Physician Pain Management 05/05/21 Neeta Rodriguez NP [address] [place] [address] [address] Referring Physician Orthopedic Surgery 05/22/21 Guru Florez MD PhD [address] [place] [address] [address] Referring Physician Cardiology 08/19/22 Yury Sheridan MD [address] [place] [address] [address] Consulting Physician Orthopedic Surgery 09/30/22 Albaro Hickman PA [address] [place] [address] Physician Engineer Second Assistant Physician Engineer Second Assistant 10/08/22 Tello Phipps MD [address] [place] [address] [address] Referring Physician Orthopedic Surgery 04/14/23
--- OUTSIDE RECORDS SUMMARY | 2024-05-30 15:23 | XMS_ITS | Encounter Summary ---
Author Organization [facility] Address [address] [place] [address] Phone Care Team Providers Care Tool Carrier Name Role Phone Asa Farias MD Primary Care Provider [phone] Albaro Hickman Primary Care Provider Rach Hayes MD Unavailable Neeta Rodriguez NP Unavailable [phone] Guru Florez MD PhD Unavailable [phone] Yury Sheridan MD Unavailable + [phone] Crow Bernardo MD Primary Care Provider + [phone] Albaro Hickman Unavailable [phone] Tello Phipps MD Unavailable [phone] Rupert Stevens DO Primary Care Provider [phone] Maria Fernanda Wilde MD Primary Care Provider + [phone] Maria Fernanda Wilde MD Primary Care Provider Encounter Details Date Type Department Care Team (Late st Contact Info) Description 06/06/2016 Orders Only [facility] Provider, MD Luis [place] [address] Social History Tobacco Use Types Packs/Day Years Used Date Smoking Tobacco: Never Assessed Comments Unknown Sex and Gender Information Value Date Recorded Sex Assigned at Not on file 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 [facility] Provider CV CARDIAC SERVICES PROCE DURES Final Result * CARDIOLOGY REPORT (06/06/2016) Anatomical Region Laterality Modality Other Narrative 06/06/2016 Ordered by an unspecified provider. us Historical Provider CV CARDIAC SERVICES PROCE DURES Final Result documented in this encounter Visit Diagnoses Not on filedocumented in this encounter Care Teams Tool Carrier Relationship Specialty Start Date End Date Asa Farias MD PCP - General 07/20/16 05/09/18 Albaro Hickman PA [address] [place] [address] PCP - General Physician Shoe Treer 05/10/18 10/07/22 Crow Bernardo MD [address] [address] PCP - General Internal Medicine 10/08/22 08/11/23 Rupert Stevens DO [address] [address] PCP - General Internal Medicine 08/12/23 01/17/24 Maria Fernanda Wilde MD [address] [facility] [address] [place] [address] PCP - General Family Medicine 01/18/24 05/20/24 Maria Fernanda Wilde MD [address] [address] PCP - General Family Medicine 05/21/24 Rach Hayes MD [address] [place] [address] [facility] [address] Consulting Physician Pain Management 05/05/21 Neeta Rodriguez NP [address] [place] [address] [address] Referring Physician Orthopedic Surgery 05/22/21 Guru Florez MD PhD [address] [place] [address] [address] Referring Physician Cardiology 08/19/22 Yury Sheridan MD [address] [place] [address] [address] Consulting Physician Orthopedic Surgery 09/30/22 Albaro Hickman PA [address] [address] Physician Shoe Treer Physician Shoe Treer 10/08/22 Tello Phipps MD [address] [place] [address] [address] Referring Physician Orthopedic Surgery 04/14/23 documented as of this encounter
--- OUTSIDE RECORDS SUMMARY | 2024-05-30 15:23 | XMS_ITS | Encounter Summary ---
Author Organization [facility] Address [address] [place] [address] Phone Care Team Providers Care Agent Producer Name Role Phone Asa Farias MD Primary Care Provider [phone] Albaro Hickman Primary Care Provider Rach Hayes MD Unavailable Neeta Rodriguez NP Unavailable +[phone] Guru Florez MD PhD Unavailable [phone] Yury Sheridan MD Unavailable + [phone] Crow Bernardo MD Primary Care Provider + [phone] Albaro Hickman Unavailable +[phone] Tello Phipps MD Unavailable [phone] Rupert Stevens DO Primary Care Provider [phone] Maria Fernanda Wilde MD Primary Care Provider + [phone] Maria Fernanda Wilde MD Primary Care Provider Encounter Details Date Type Department Care Team (Late st Contact Info) Description 10/07/2016 Orders Only [facility] Provider, MD Luis [facility] [place] [address] Social History Tobacco Use Types Packs/Day Years Used Date Smoking Tobacco: Never Comments Unknown Sex and Gender Information Value Date Recorded Sex Assigned at Not on file 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 Historical Provider CV CARDIAC SERVICES PROCE DURES Final Result * CARDIOLOGY REPORT (10/07/2016) Anatomical Region Laterality Modality Other Narrative 10/07/2016 Ordered by an unspecified provider. us Historical Provider CV CARDIAC SERVICES PROCE DURES Final Result documented in this encounter Visit Diagnoses Not on filedocumented in this encounter Care Teams Agent Producer Relationship Specialty Start Date End Date Asa Farias MD PCP - General 07/20/16 05/09/18 Albaro Hickman PA [address] [place] [address] [place] [address] PCP - General Physician Radio Interference Investigator 05/10/18 10/07/22 Crow Bernardo MD [address] [address] PCP - General Internal Medicine 10/08/22 08/11/23 Rupert Stevens DO [address] [address] PCP - General Internal Medicine 08/12/23 01/17/24 Maria Fernanda Wilde MD [facility] [address] [place] [address] PCP - General Family Medicine 01/18/24 05/20/24 Maria Fernanda Wilde MD [address] [address] PCP - General Family Medicine 05/21/24 Rach Hayes MD [address] [place] [address] [facility] [address] Consulting Physician Pain Management 05/05/21 Neeta Rodriguez NP [address] [place] [address] [address] [place] [address] Referring Physician Orthopedic Surgery 05/22/21 Guru Florez MD PhD [address] [place] [address] [address] [place] [address] Referring Physician Cardiology 08/19/22 Yury Sheridan MD [address] [place] [address] [address] [place] [address] Consulting Physician Orthopedic Surgery 09/30/22 Albaro Hickman PA [address] [address] Physician Radio Interference Investigator Physician Radio Interference Investigator 10/08/22 Tello Phipps MD [address] [place] [address] [address] [place] [address] Referring Physician Orthopedic Surgery 04/14/23 documented as of this encounter
--- OUTSIDE RECORDS SUMMARY | 2024-05-30 15:23 | XMS_ITS | Encounter Summary ---
Author Organization [facility] Address [address] [place] [address] Phone Care Team Providers Care Horologist Name Role Phone Asa Farias MD Primary Care Provider [phone] Albaro Hickman Primary Care Provider Rach Hayes MD Unavailable Neeta Rodriguez NP Unavailable +[phone] Guru Florez MD PhD Unavailable +[phone] Yury Sheridan MD Unavailable + [phone] Crow Bernardo MD Primary Care Provider + [phone] Albaro Hickman Unavailable +[phone] Tello Phipps MD Unavailable +[phone] Rupert Stevens DO Primary Care Provider +[phone] Maria Fernanda Wilde MD Primary Care Provider + [phone] Maria Fernanda Wilde MD Primary Care Provider Encounter Details Date Type Department Care Team (Late st Contact Info) Description 08/24/2016 Orders Only [facility] Provider, MD Luis [facility] [place] [address] Social History Tobacco Use Types Packs/Day Years Used Date Smoking Tobacco: Never Comments Unknown Sex and Gender Information Value Date Recorded Sex Assigned at Not on file 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 Historical Provider CV CARDIAC SERVICES PROCE DURES Final Result * CARDIOLOGY REPORT (08/24/2016) Anatomical Region Laterality Modality Other Narrative 08/24/2016 Ordered by an unspecified provider. us Historical Provider CV CARDIAC SERVICES PROCE DURES Final Result documented in this encounter Visit Diagnoses Not on filedocumented in this encounter Care Teams Horologist Relationship Specialty Start Date End Date Asa Farias MD PCP - General 07/20/16 05/09/18 Albaro Hickman PA [address] [place] [address] [place] [address] PCP - General Physician Polygraph Technician 05/10/18 10/07/22 Crow Bernardo MD [address] [address] PCP - General Internal Medicine 10/08/22 08/11/23 Rupert Stevens DO [address] [address] PCP - General Internal Medicine 08/12/23 01/17/24 Maria Fernanda Wilde MD [facility] [address] [place] [address] PCP - General Family Medicine 01/18/24 05/20/24 Maria Fernanda Wilde MD [address] [address] PCP - General Family Medicine 05/21/24 Rach Hayes MD [address] [place] [address] [facility] [address] Consulting Physician Pain Management 05/05/21 Neeta Rodriguez NP [address] [place] [address] [address] [place] [address] Referring Physician Orthopedic Surgery 05/22/21 Guru Florez MD PhD [address] [place] [address] [address] [place] [address] Referring Physician Cardiology 08/19/22 Yury Sheridan MD [address] [place] [address] [address] [place] [address] Consulting Physician Orthopedic Surgery 09/30/22 Albaro Hickman PA [address] [id number] Physician Polygraph Technician Physician Polygraph Technician 10/08/22 Tello Phipps MD [address] [place] [address] [address] [place] [address] Referring Physician Orthopedic Surgery 04/14/23 documented as of this encounter
--- OUTSIDE RECORDS SUMMARY | 2024-05-30 15:23 | XMS_ITS | Encounter Summary ---
Author Organization [facility] Address [address] [place] [address] Phone Care Team Providers Care Log Hauler Name Role Phone Asa Farias MD Primary Care Provider [phone] Albaro Hickman Primary Care Provider Rach Hayes MD Unavailable Neeta Rodriguez NP Unavailable +[phone] Guru Florez MD PhD Unavailable +[phone] Yury Sheridan MD Unavailable + [phone] Crow Bernardo MD Primary Care Provider + [phone] Albaro Hickman Unavailable +[phone] Tello Phipps MD Unavailable +[phone] Rupert Stevens DO Primary Care Provider +[phone] Maria Fernanda Wilde MD Primary Care Provider + [phone] Maria Fernanda Wilde MD Primary Care Provider Encounter Details Date Type Department Care Team (Late st Contact Info) Description 09/06/2016 Orders Only [facility] Provider, MD [place] [address] Social History Tobacco Use Types Packs/Day Years Used Date Smoking Tobacco: Never Comments Unknown Sex and Gender Information Value Date Recorded Sex Assigned at Not on file 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 Historical Provider CV CARDIAC SERVICES PROCE DURES Final Result * CARDIOLOGY REPORT (09/06/2016) Anatomical Region Laterality Modality Other Narrative 09/06/2016 Ordered by an unspecified provider. us Historical Provider CV CARDIAC SERVICES PROCE DURES Final Result documented in this encounter Visit Diagnoses Not on filedocumented in this encounter Care Teams Log Hauler Relationship Specialty Start Date End Date Asa Farias MD PCP - General 07/20/16 05/09/18 Albaro Hickman PA [address] [place] [address] [place] [address] PCP - General Physician Armed Security Professional 05/10/18 10/07/22 Crow Bernardo MD [address] [address] PCP - General Internal Medicine 10/08/22 08/11/23 Rupert Stevens DO [address] [address] PCP - General Internal Medicine 08/12/23 01/17/[address] [facility] [address] [place] [address] PCP - General Family Medicine 01/18/24 05/20/24 Maria Fernanda Wilde MD [address] [address] PCP - General Family Medicine 05/21/24 Rach Hayes MD [address] [place] [address] [facility] [address] Consulting Physician Pain Management 05/05/21 Neeta Rodriguez NP [address] [place] [address] [address] [place] [address] Referring Physician Orthopedic Surgery 05/22/21 Guru Florez MD PhD [address] [place] [address] [address] [place] [address] Referring Physician Cardiology 08/19/22 Yury Sheridan MD [address] [place] [address] [address] [place] [address] Consulting Physician Orthopedic Surgery 09/30/22 Albaro Hickman PA [address] [id number] Physician Armed Security Professional Physician Armed Security Professional 10/08/22 Tello Phipps MD [address] [place] [address] [address] [place] [address] Referring Physician Orthopedic Surgery 04/14/23 documented as of this encounter
--- OUTSIDE RECORDS SUMMARY | 2024-05-30 15:23 | XMS_ITS | Encounter Summary ---
Author Organization [facility] Address [address] [place] [address] Phone Care Team Providers Care Health Safety Coordinator Name Role Phone Asa Farias MD Primary Care Provider [phone] Albaro Hickman Primary Care Provider Rach Hayes MD Unavailable Neeta Rodriguez NP Unavailable +[phone] Guru Florez MD PhD Unavailable [phone] Yury Sheridan MD Unavailable + [phone] Crow Bernardo MD Primary Care Provider + [phone] Albaro Hickman Unavailable +[phone] Tello Phipps MD Unavailable +[phone] Rupert Stevens DO Primary Care Provider +[phone] Maria Fernanda Wilde MD Primary Care Provider + [phone] Maria Fernanda Wilde MD Primary Care Provider Encounter Details Date Type Department Care Team (Late st Contact Info) Description 07/20/2016 Orders Only [facility] Provider, MD Luis [facility] [place] [address] Social History Tobacco Use Types Packs/Day Years Used Date Smoking Tobacco: Never Comments Unknown Sex and Gender Information Value Date Recorded Sex Assigned at Not on file 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 us Historical Provider CV CARDIAC SERVICES CONNOR MANUEL Final Result documented in this encounter Visit Diagnoses Not on filedocumented in this encounter Care Teams Health Safety Coordinator Relationship Specialty Start Date End Date Asa Farias MD PCP - General 07/20/16 05/09/18 Albaro Hickman PA [address] [address] PCP - General Physician French Tutor 05/10/18 10/07/22 Crow Bernardo MD [address] [address] PCP - General Internal Medicine 10/08/22 08/11/23 [place] [address] [place] [address] [address] [place] [address] PCP - General Internal Medicine 08/12/23 01/17/24 Maria Fernanda Wilde MD [address] [facility] [address] [place] [address] PCP - General Family Medicine 01/18/24 05/20/24 Maria Fernanda Wilde MD [address] [address] PCP - General Family Medicine 05/21/24 Rach Hayes MD 4700 [facility], [address] [address] Consulting Physician Pain Management 05/05/21 Neeta Rodriguez NP [address] [place] [address] [address] [place] [address] Referring Physician Orthopedic Surgery 05/22/21 Guru Florez MD PhD [address] [place] [address] [address] [place] [address] Referring Physician Cardiology 08/19/22 Yury Sheridan MD [address] [place] [address] [address] [place] [address] Consulting Physician Orthopedic Surgery 09/30/22 Albaro Hickman PA [address] [address] Physician French Tutor Physician French Tutor 10/08/22 Tello Phipps MD [address] [place] [address] [address] [place] [address] Referring Physician Orthopedic Surgery 04/14/23 documented as of this encounter
--- OUTSIDE RECORDS SUMMARY | 2024-05-30 15:23 | XMS_ITS | Encounter Summary ---
Author Organization [facility] Address [address] [place] [address] Phone Care Team Providers Care Client Experience Manager Name Role Phone Asa Farias MD Primary Care Provider [phone] Albaro Hickman Primary Care Provider Rach Hayes MD Unavailable Neeta Rodriguez NP Unavailable +[phone] Guru Florez MD PhD Unavailable +[phone] Yury Sheridan MD Unavailable + [phone] Crow Bernardo MD Primary Care Provider + [phone] Albaro Hickman Unavailable +[phone] Tello Phipps MD Unavailable +[phone] Rupert Stevens DO Primary Care Provider +[phone] Maria Fernanda Wilde MD Primary Care Provider + [phone] Maria Fernanda Wilde MD Primary Care Provider Encounter Details Date Type Department Care Team (Late st Contact Info) Description 06/30/2016 Orders Only [facility] Provider, MD Luis [facility] [place] [address] Social History Tobacco Use Types Packs/Day Years Used Date Smoking Tobacco: Never Assessed Comments Unknown Sex and Gender Information Value Date Recorded Sex Assigned at Not on file 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 [facility] Provider CV CARDIAC SERVICES PROCE DURES Final Result * CARDIOLOGY REPORT (06/30/2016) Anatomical Region Laterality Modality Other Narrative 06/30/2016 Ordered by an unspecified provider. us Historical Provider CV CARDIAC SERVICES PROCE DURES Final Result documented in this encounter Visit Diagnoses Not on filedocumented in this encounter Care Teams Client Experience Manager Relationship Specialty Start Date End Date Asa Farias MD PCP - General 07/20/16 05/09/18 Albaro Hickman PA [address] [place] [address] PCP - General Physician Obgyn Specialist 05/10/18 10/07/22 Crow Bernardo MD [address] [address] PCP - General Internal Medicine 10/08/22 08/11/23 Rupert Stevens DO [address] [address] PCP - General Internal Medicine 08/12/23 01/17/24 Maria Fernanda Wilde MD [address] [facility] [address] [place] [address] PCP - General Family Medicine 01/18/24 05/20/24 Maria Fernanda Wilde MD [address] [address] PCP - General Family Medicine 05/21/24 Rach Hayes MD [address] [place] [address] [facility] [address] Consulting Physician Pain Management 05/05/21 Neeta Rodriguez NP [address] [place] [address] [address] Referring Physician Orthopedic Surgery 05/22/21 Guru Florez MD PhD [address] [place] [address] [address] Referring Physician Cardiology 08/19/22 Yury Sheridan MD [address] [place] [address] [address] Consulting Physician Orthopedic Surgery 09/30/22 Albaro Hickman PA [address] [address] Physician Obgyn Specialist Physician Obgyn Specialist 10/08/22 Tello Phipps MD [address] [place] [address] [address] Referring Physician Orthopedic Surgery 04/14/23 documented as of this encounter
--- OUTSIDE RECORDS SUMMARY | 2024-05-30 15:23 | XMS_ITS | Encounter Summary ---
Author Organization [facility] Address [address] [place] [address] Phone Care Team Providers Care Perforating Machine Operator Name Role Phone Asa Farias MD Primary Care Provider [phone] Albaro Hickman Primary Care Provider Rach Hayes MD Unavailable Neeta Rodriguez NP Unavailable +[phone] Guru Florez MD PhD Unavailable [phone] Yury Sheridan MD Unavailable + [phone] Crow Bernardo MD Primary Care Provider + [phone] Albaro Hickman Unavailable +[phone] Tello Phipps MD Unavailable +[phone] Rupert Stevens DO Primary Care Provider [phone] Maria Fernanda Wilde MD Primary Care Provider + [phone] Maria Fernanda Wilde MD Primary Care Provider Encounter Details Date Type Department Care Team (Late st Contact Info) Description 06/03/2016 Orders Only [facility] Provider, MD Luis [facility] [place] [address] Social History Tobacco Use Types Packs/Day Years Used Date Smoking Tobacco: Never Assessed Comments Unknown Sex and Gender Information Value Date Recorded Sex Assigned at Not on file Legal Sex Female 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 [facility] Provider CV CARDIAC SERVICES PROCE DURES Final Result * CARDIOLOGY REPORT (06/03/2016) Anatomical Region Laterality Modality Other Narrative 06/03/2016 Ordered by an unspecified provider. us Historical Provider CV CARDIAC SERVICES PROCE DURES Final Result documented in this encounter Visit Diagnoses Not on filedocumented in this encounter Care Teams Perforating Machine Operator Relationship Specialty Start Date End Date Asa Farias MD PCP - General 07/20/16 05/09/18 Albaro Hickman PA [address] [place] [address] PCP - General Physician Supervisor Heavy Equipment 05/10/18 10/07/22 Crow Bernardo MD [address] [address] PCP - General Internal Medicine 10/08/22 08/11/23 Rupert Stevens DO [address] [address] PCP - General Internal Medicine 08/12/23 01/17/24 Maria Fernanda Wilde MD [address] [facility] [address] [place] [address] PCP - General Family Medicine 01/18/24 05/20/24 Maria Fernanda Wilde MD [address] [address] PCP - General Family Medicine 05/21/24 Rach Hayes MD [address] [place] [address] [facility] [address] Consulting Physician Pain Management 05/05/21 Neeta Rodriguez NP [address] [place] [address] [address] Referring Physician Orthopedic Surgery 05/22/21 Guru Florez MD PhD [address] [place] [address] [address] Referring Physician Cardiology 08/19/22 Yury Sheridan MD [address] [place] [address] [address] Consulting Physician Orthopedic Surgery 09/30/22 Albaro Hickman PA [address] [address] Physician Supervisor Heavy Equipment Physician Supervisor Heavy Equipment 10/08/22 Tello Phipps MD [address] [place] [address] [address] Referring Physician Orthopedic Surgery 04/14/23 documented as of this encounter
--- OUTSIDE RECORDS SUMMARY | 2024-05-30 15:23 | XMS_ITS | Encounter Summary ---
Author Organization [facility] Address [address] [place] [address] Phone Care Team Providers Care Metal Fabricator Helper Name Role Phone Asa Farias MD Primary Care Provider [phone] Albaro Hickman Primary Care Provider Rach Hayes MD Unavailable Neeta Rodriguez NP Unavailable +[phone] Guru Florez MD PhD Unavailable +[phone] Yury Sheridan MD Unavailable + [phone] Crow Bernardo MD Primary Care Provider + [phone] Alabro Hickman Unavailable +[phone] Tello Phipps MD Unavailable +[phone] Rupert Stevens DO Primary Care Provider +[phone] Maria Fernanda Wilde MD Primary Care Provider + [phone] Maria Fernanda Wilde MD Primary Care Provider Encounter Details Date Type Department Care Team (Late st Contact Info) Description 09/25/2016 Orders Only [facility] Provider, MD Luis [facility] [address] Social History Tobacco Use Types Packs/Day Years Used Date Smoking Tobacco: Never Comments Unknown Sex and Gender Information Value Date Recorded Sex Assigned at Not on file 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 Historical Provider CV CARDIAC SERVICES PROCE DURES Final Result * CARDIOLOGY REPORT (09/25/2016) Anatomical Region Laterality Modality Other Narrative 09/25/2016 Ordered by an unspecified provider. us Historical Provider CV CARDIAC SERVICES PROCE DURES Final Result documented in this encounter Visit Diagnoses Not on filedocumented in this encounter Care Teams Metal Fabricator Helper Relationship Specialty Start Date End Date Asa Farias MD PCP - General 07/20/16 05/09/18 Albaro Hickman PA [address] [place] [address] [place] [address] PCP - General Physician Agriscience Teacher 05/10/18 10/07/22 Crow Bernardo MD [address] [address] PCP - General Internal Medicine 10/08/22 08/11/23 Rupert Stevens DO [address] [address] PCP - General Internal Medicine 08/12/23 01/17/24 Maria Fernanda Wilde MD [facility] [address] [place] [address] PCP - General Family Medicine 01/18/24 05/20/24 Maria Fernanda Wilde MD [address] [address] PCP - General Family Medicine 05/21/24 Rach Hayes MD [address] [place] [address] [facility] [address] Consulting Physician Pain Management 05/05/21 Neeta Rodriguez NP [address] [place] [address] [address] [place] [address] Referring Physician Orthopedic Surgery 05/22/21 Guru Florez MD PhD [address] [place] [address] [address] [place] [place] [address] Referring Physician Cardiology 08/19/22 Yury Sheridan MD [address] [place] [address] [address] [place] [place] [address] Consulting Physician Orthopedic Surgery 09/30/22 Albaro Hickman PA [address] [id number] Physician Agriscience Teacher Physician Agriscience Teacher 10/08/22 Tello Phipps MD [address] [place] [address] [address] [place] [address] Referring Physician Orthopedic Surgery 04/14/23 documented as of this encounter
--- OUTSIDE RECORDS SUMMARY | 2024-05-30 15:24 | XMS_ITS | Encounter Summary ---
Author Organization [facility] Address [address] [place] [address] Phone Care Team Providers Care Internet Consultant Name Role Phone Asa Farias MD Primary Care Provider [phone] Albaro Hickman Primary Care Provider Rach Hayes MD Unavailable Neeta Rodriguez NP Unavailable [phone] Guru Florez MD PhD Unavailable +[phone] Yury Sheridan MD Unavailable + [phone] Crow Bernardo MD Primary Care Provider + [phone] Albaro Hickman Unavailable +[phone] Tello Phipps MD Unavailable +[phone] Rupert Stevens DO Primary Care Provider +[phone] Maria Fernanda Wilde MD Primary Care Provider + [phone] Maria Fernanda Wilde MD Primary Care Provider Encounter Details Date Type Department Care Team (Late st Contact Info) Description 02/20/2016 Orders Only [facility] Provider, [place] [address] Social History Tobacco Use Types Packs/Day Years Used Date Smoking Tobacco: Never Assessed Comments Unknown Sex and Gender Information Value Date Recorded Sex Assigned at Not on file Legal Sex Female 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 Historical Provider CV CARDIAC SERVICES PROCE DURES Final Result * CARDIOLOGY REPORT (02/20/2016) Anatomical Region Laterality Modality Other Narrative 02/20/2016 Ordered by an unspecified provider. Historical Provider CV CARDIAC SERVICES PROCE DURES Final Result * CARDIOLOGY REPORT (02/20/2016) Anatomical Region Laterality Modality Other Narrative 02/20/2016 Ordered by an unspecified provider. Historical Provider CV CARDIAC SERVICES PROCE DURES Final Result documented in this encounter Visit Diagnoses Not on filedocumented in this encounter Care Teams Internet Consultant Relationship Specialty Start Date End Date Asa Farias MD PCP - General 07/20/16 05/09/18 Albaro Hickman PA [address] [address] PCP - General Physician Fitter Armament 05/10/18 10/07/22 Crow Bernardo MD [address] [address] PCP - General Internal Medicine 10/08/22 08/11/23 Rupert Stevens DO [address] [place] [address] [address] [place] [address] PCP - General Internal Medicine 08/12/23 01/17/24 Maria Fernanda Wilde MD [facility] [address] [place] [address] PCP - General Family Medicine 01/18/24 05/20/24 Maria Fernanda Wilde MD [address] [address] PCP - General Family Medicine 05/21/24 Rach Hayes MD [address] [place] [address] [facility], [address] [address] Consulting Physician Pain Management 05/05/[address] MACHINE OPERATOR [address] [place] [address] [address] [place] [address] Referring Physician Orthopedic Surgery 05/22/21 Guru Florez MD PhD [address] [place] [address] [address] [place] [address] Referring Physician Cardiology 08/19/22 Yury Sheridan MD [address] [place] [address] [address] [place] [address] Consulting Physician Orthopedic Surgery 09/30/22 Albaro Hickman PA [address] [address] Physician Fitter Armament Physician Fitter Armament 10/08/22 Tello Phipps MD [address] [facility] [address] [place] [address] Referring Physician Orthopedic Surgery 04/14/23 documented as of this encounter
--- OUTSIDE RECORDS SUMMARY | 2024-05-30 15:24 | XMS_ITS | Encounter Summary ---
Author Organization [facility] Address [address] [place] [address] Phone Care Team Providers Care Anodizer Name Role Phone Asa Farias MD Primary Care Provider [phone] Albaro Hickman Primary Care Provider Rach Hayes MD Unavailable Neeta Rodriguez NP Unavailable +[phone] Guru Florez MD PhD Unavailable +[phone] Yury Sheridan MD Unavailable + [phone] Crow Bernardo MD Primary Care Provider + [phone] Albaro Hickman Unavailable +[phone] Tello Phipps MD Unavailable +[phone] Rupert Stevens DO Primary Care Provider +[phone] Maria Fernanda Wilde MD Primary Care Provider + [phone] Maria Fernanda Wilde MD Primary Care Provider Encounter Details Date Type Department Care Team (Late st Contact Info) Description 07/04/2014 Orders Only [facility] Provider, MD [place] [address] Social History Tobacco Use Types Packs/Day Years Used Date Smoking Tobacco: Never Assessed Comments Unknown Sex and Gender Information Value Date Recorded Sex Assigned at Not on file Legal 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 [facility] Provider CV CARDIAC SERVICES PROCE DURES Final Result * CARDIOLOGY REPORT (07/04/2014) Anatomical Region Laterality Modality Other Narrative 07/04/2014 Ordered by an unspecified provider. us Historical Provider CV CARDIAC SERVICES PROCE DURES Final Result documented in this encounter Visit Diagnoses Not on filedocumented in this encounter Care Teams Anodizer Relationship Specialty Start Date End Date Asa Farias MD PCP - General 07/20/16 05/09/18 Albaro Hickman PA [address] [place] [address] PCP - General Physician Construction Technology Instructor 05/10/18 10/07/22 Crow Bernardo MD [address] [address] PCP - General Internal Medicine 10/08/22 08/11/23 Rupert Stevens DO [address] [address] PCP - General Internal Medicine 08/12/23 01/17/24 Maria Fernanda Wilde MD [address] [facility] [address] [place] [address] PCP - General Family Medicine 01/18/24 05/20/24 Maria Fernanda Wilde MD [address] [address] PCP - General Family Medicine 05/21/24 Rach Hayes MD [address] [place] [address] [facility] [address] Consulting Physician Pain Management 05/05/21 Neeta Rodriguez NP [address] [place] [address] [address] Referring Physician Orthopedic Surgery 05/22/21 Guru Florez MD PhD [address] [place] [address] [address] Referring Physician Cardiology 08/19/22 Yury Sheridan MD [address] [place] [address] [address] Consulting Physician Orthopedic Surgery 09/30/22 Albaro Hickman PA [address] [address] Physician Construction Technology Instructor Physician Construction Technology Instructor 10/08/22 Tello Phipps MD [address] [place] [address] [address] Referring Physician Orthopedic Surgery 04/14/23 documented as of this encounter
--- OUTSIDE RECORDS SUMMARY | 2024-05-30 15:24 | XMS_ITS | Encounter Summary ---
Author Organization [facility] Address [address] [place] [address] Phone Care Team Providers Care Courtesy Driver Name Role Phone Asa Farias MD Primary Care Provider [phone] Albaro Hickman Primary Care Provider Rach Hayes MD Unavailable Neeta Rodriguez NP Unavailable [phone] Guru Florez MD PhD Unavailable [phone] Yury Sheridan MD Unavailable + [phone] Crow Bernardo MD Primary Care Provider + [phone] Albaro Hickman Unavailable +[phone] Tello Phipps MD Unavailable +[phone] Rupert Stevens DO Primary Care Provider +[phone] Maria Fernanda Wilde MD Primary Care Provider + [phone] Maria Fernanda Wilde MD Primary Care Provider Encounter Details Date Type Department Care Team (Late st Contact Info) Description 12/30/2013 Orders Only [facility] Provider, MD Luis [place] [address] Social History Tobacco Use Types Packs/Day Years Used Date Smoking Tobacco: Never Assessed Comments Unknown Sex and Gender Information Value Date Recorded Sex Assigned at Not on file Legal Sex Female 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 us Historical Provider CV CARDIAC SERVICES CONNOR MANUEL Final Result documented in this encounter Visit Diagnoses Not on filedocumented in this encounter Care Teams Courtesy Driver Relationship Specialty Start Date End Date Asa Farias MD PCP - General 07/20/16 05/09/18 Albaro Hickman PA [address] [address] PCP - General Physician Customer Engineer 05/10/18 10/07/22 Crow Bernardo MD [address] [address] PCP - General Internal Medicine 10/08/22 08/11/23 Rupert Stevens DO [address] [place] [address] [address] [place] [address] PCP - General Internal Medicine 08/12/23 01/17/24 Maria Fernanda Wilde MD [address] [facility] [address] [place] [address] PCP - General Family Medicine 01/18/24 05/20/24 Maria Fernanda Wilde MD [address] [address] PCP - General Family Medicine 05/21/24 Rach Hayes MD [facility], [address] [address] Consulting Physician Pain Management 05/05/21 Neeta Rodriguez NP [address] [place] [address] [address] [place] [address] Referring Physician Orthopedic Surgery 05/22/21 Guru Florez MD PhD [address] [place] [address] [address] [place] [address] Referring Physician Cardiology 08/19/22 Yury Sheridan MD [address] [place] [address] [address] [place] [address] Consulting Physician Orthopedic Surgery 09/30/22 Albaro Hickman PA [address] [address] Physician Customer Engineer Physician Customer Engineer 10/08/22 Tello Phipps MD [address] [place] [address] [address] [place] [address] Referring Physician Orthopedic Surgery 04/14/23 documented as of this encounter
--- OUTSIDE RECORDS SUMMARY | 2024-05-30 15:24 | XMS_ITS | Encounter Summary ---
Author Organization [facility] Address [address] [place] [address] Phone Care Team Providers Care Nautical Instrument Mechanic Name Role Phone Asa Farias MD Primary Care Provider [phone] Albaro Hickman Primary Care Provider Rach Hayes MD Unavailable Neeta Rodriguez NP Unavailable [phone] Guru Florez MD PhD Unavailable +[phone] Yury Sheridan MD Unavailable + [phone] rCow Bernardo MD Primary Care Provider + [phone] Albaro Hickman Unavailable +[phone] Tello Phipps MD Unavailable +[phone] Rupert Stevens DO Primary Care Provider [phone] Maria Fernanda Wilde MD Primary Care Provider + [phone] Maria Fernanda Wilde MD Primary Care Provider Encounter Details Date Type Department Care Team (Late st Contact Info) Description 04/07/2016 Orders Only [facility] Provider, MD Luis [facility] [place] [address] Social History Tobacco Use Types Packs/Day Years Used Date Smoking Tobacco: Never Assessed Comments Unknown Sex and Gender Information Value Date Recorded Sex Assigned at Not on file Legal Sex Female 4:37 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 [facility] Provider CV CARDIAC SERVICES PROCE DURES Final Result * CARDIOLOGY REPORT (04/07/2016) Anatomical Region Laterality Modality Other Narrative 04/07/2016 Ordered by an unspecified provider. us Historical Provider CV CARDIAC SERVICES PROCE DURES Final Result documented in this encounter Visit Diagnoses Not on filedocumented in this encounter Care Teams Nautical Instrument Mechanic Relationship Specialty Start Date End Date Asa Farias MD PCP - General 07/20/16 05/09/18 Albaro Hickman PA [address] [place] [address] PCP - General Physician Installer 05/10/18 10/07/22 Crow Bernardo MD [address] [address] PCP - General Internal Medicine 10/08/22 08/11/23 Rupert Stevens DO [address] [address] PCP - General Internal Medicine 08/12/23 01/17/24 Maria Fernanda Wilde MD 4700 [facility] [address] [place] [address] PCP - General Family Medicine 01/18/24 05/20/24 Maria Fernanda Wilde MD [address] [address] PCP - General Family Medicine 05/21/24 Rach Hayes MD [address] [place] [address] [facility] [address] Consulting Physician Pain Management 05/05/21 Neeta Rodriguez NP [address] [place] [address] [address] Referring Physician Orthopedic Surgery 05/22/21 Guru Florez MD PhD [address] [place] [address] [address] Referring Physician Cardiology 08/19/22 Yury Sheridan MD [address] [place] [address] [address] Consulting Physician Orthopedic Surgery 09/30/22 Albaro Hickman PA [address] [address] Physician Installer Physician Installer 10/08/22 Tello Phipps MD [address] [place] [address] [address] Referring Physician Orthopedic Surgery 04/14/23 documented as of this encounter
--- OUTSIDE RECORDS SUMMARY | 2024-05-30 15:24 | XMS_ITS | Encounter Summary ---
Author Organization [facility] Address [address] [place] [address] Phone Care Team Providers Care Manager Desktop Name Role Phone Asa Farias MD Primary Care Provider [phone] Albaro Hickman Primary Care Provider Rach Hayes MD Unavailable Neeta Rodriguez NP Unavailable [phone] Guru Florez MD PhD Unavailable [phone] Yury Sheridan MD Unavailable + [phone] Crow Bernardo MD Primary Care Provider + [phone] Albaro Hickman Unavailable +[phone] Tello Pihpps MD Unavailable [phone] Rupert Stevens DO Primary Care Provider +[phone] Maria Fernanda Wilde MD Primary Care Provider + [phone] Maria Fernanda Wilde MD Primary Care Provider Encounter Details Date Type Department Care Team (Late st Contact Info) Description 04/03/2016 Orders Only [facility] Provider, MD Luis [facility] [place] [address] Social History Tobacco Use Types Packs/Day Years Used Date Smoking Tobacco: Never Assessed Comments Unknown Sex and Gender Information Value Date Recorded Sex Assigned at Not on file Legal Sex Female 4:37 AM HOME VISITOR Gender Identity Female 07/15/2022 2:23 PM CDT Sexual Orientation Choose not to disclose 2023 12:05 PM CDT documented as of this encounter Plan of Treatment Not on file documented as of this encounter Procedures Procedure Name Priority Date/Time Associated Diagnosis Comments CARDIOLOGY REPORT 04/03/2016 CARDIOLOGY REPORT 04/03/2016 documented in this encounter Results * CARDIOLOGY REPORT (04/03/2016) Anatomical Region Laterality Modality Other Narrative 04/03/2016 Ordered by an unspecified provider. [facility] Provider CV CARDIAC SERVICES PROCE DURES Final Result * CARDIOLOGY REPORT (04/03/2016) Anatomical Region Laterality Modality Other Narrative 04/03/2016 Ordered by an unspecified provider. us Historical Provider CV CARDIAC SERVICES PROCE DURES Final Result documented in this encounter Visit Diagnoses Not on filedocumented in this encounter Care Teams Manager Desktop Relationship Specialty Start Date End Date Asa Farias MD PCP - General 07/20/16 05/09/18 Albaro Hickman PA [address] [place] [address] PCP - General Physician Process Safety Management Engineer 05/10/18 10/07/22 Crow Bernardo MD [address] [address] PCP - General Internal Medicine 10/08/22 08/11/23 Rupert Stevens DO [address] [address] PCP - General Internal Medicine 08/12/23 01/17/24 Maria Fernanda Wilde MD [address] [facility] [address] [place] [address] PCP - General Family Medicine 01/18/24 05/20/24 Maria Fernanda Wilde MD [address] [address] PCP - General Family Medicine 05/21/24 Rach Hayes MD [address] [place] [address] [facility] [address] Consulting Physician Pain Management 05/05/21 Neeta Rodriguez NP [address] [place] [address] [address] Referring Physician Orthopedic Surgery 05/22/21 Guru Florez MD PhD [address] [place] [address] [address] Referring Physician Cardiology 08/19/22 Yury Sheridan MD [address] [place] [address] [address] Consulting Physician Orthopedic Surgery 09/30/22 Albaro Hickman PA [address] [address] Physician Process Safety Management Engineer Physician Process Safety Management Engineer 10/08/22 Tello Phipps MD [address] [place] [address] [address] Referring Physician Orthopedic Surgery 04/14/23 documented as of this encounter
--- OUTSIDE RECORDS SUMMARY | 2024-05-30 15:24 | XMS_ITS | Encounter Summary ---
Author Organization [facility] Address [address] [place] [address] Phone Care Team Providers Care Sticker On Name Role Phone Asa Farias MD Primary Care Provider [phone] Albaro Hickman Primary Care Provider Rach Hayes MD Unavailable Neeta Rodriguez NP Unavailable +[phone] Guru Florez MD PhD Unavailable +[phone] Yury Sheridan MD Unavailable + [phone] Crow Bernardo MD Primary Care Provider + [phone] Albaro Hickman Unavailable +[phone] Tello Phipps MD Unavailable +[phone] Rupert Stevens DO Primary Care Provider [phone] Maria Fernanda Wilde MD Primary Care Provider + [phone] Maria Fernanda Wilde MD Primary Care Provider Encounter Details Date Type Department Care Team (Late st Contact Info) Description 02/28/2016 Orders Only [facility] Provider, MD Luis [facility] [place] [address] Social History Tobacco Use Types Packs/Day Years Used Date Smoking Tobacco: Never Assessed Comments Unknown Sex and Gender Information Value Date Recorded Sex Assigned at Not on file Legal Sex Female 4:37 AM MANAGER COMPLETIONS Gender Identity Female 07/15/2022 2:23 PM CDT Sexual Orientation Choose not to disclose 2023 12:05 PM CDT documented as of this encounter Plan of Treatment Not on file documented as of this encounter Procedures Procedure Name Priority Date/Time Associated Diagnosis Comments CARDIOLOGY REPORT 02/28/2016 CARDIOLOGY REPORT 02/28/2016 documented in this encounter Results * CARDIOLOGY REPORT (02/28/2016) Anatomical Region Laterality Modality Other Narrative 02/28/2016 Ordered by an unspecified provider. [facility] Provider CV CARDIAC SERVICES PROCE DURES Final Result * CARDIOLOGY REPORT (02/28/2016) Anatomical Region Laterality Modality Other Narrative 02/28/2016 Ordered by an unspecified provider. us Historical Provider CV CARDIAC SERVICES PROCE DURES Final Result documented in this encounter Visit Diagnoses Not on filedocumented in this encounter Care Teams Sticker On Relationship Specialty Start Date End Date Asa Farias MD PCP - General 07/20/16 05/09/18 Albaro Hickman PA [address] [place] [address] PCP - General Physician Clinical Trainer 05/10/18 10/07/22 Crow Bernardo MD [address] [address] PCP - General Internal Medicine 10/08/22 08/11/23 Rupert Stevens DO [address] [address] PCP - General Internal Medicine 08/12/23 01/17/24 Maria Fernanda Wilde MD 4700 [facility] [address] [place] [address] PCP - General Family Medicine 01/18/24 05/20/24 Maria Fernanda Wilde MD [address] [address] PCP - General Family Medicine 05/21/24 Rach Hayes MD [address] [place] [address] [facility] [address] Consulting Physician Pain Management 05/05/21 Neeta Rodriguez NP [address] [place] [address] [address] Referring Physician Orthopedic Surgery 05/22/21 Guru Florez MD PhD [address] [place] [address] [address] Referring Physician Cardiology 08/19/22 Yury Sheridan MD [address] [place] [address] [address] Consulting Physician Orthopedic Surgery 09/30/22 Albaro Hickman PA [address] [address] Physician Clinical Trainer Physician Clinical Trainer 10/08/22 Tello Phipps MD [address] [place] [address] [address] Referring Physician Orthopedic Surgery 04/14/23 documented as of this encounter
--- OUTSIDE RECORDS SUMMARY | 2024-05-30 15:24 | XMS_ITS | Encounter Summary ---
Author Organization [facility] Address [address] [place] [address] Phone Care Team Providers Care Precast Molder Name Role Phone Asa Farias MD Primary Care Provider [phone] Albaro Hickman Primary Care Provider Rach Hayes MD Unavailable Neeta Rodriguez NP Unavailable +[phone] Guru Florez MD PhD Unavailable [phone] Yury Sheridan MD Unavailable + [phone] Crow Bernardo MD Primary Care Provider + [phone] Albaro Hickman Unavailable +[phone] Tello Phipps MD Unavailable +[phone] Rupert Stevens DO Primary Care Provider +[phone] Maria Fernanda Wilde MD Primary Care Provider + [phone] Maria Fernanda Wilde MD Primary Care Provider Encounter Details Date Type Department Care Team (Late st Contact Info) Description 02/01/2015 Orders Only [facility] Provider, MD Luis [place] [address] Social History Tobacco Use Types Packs/Day Years Used Date Smoking Tobacco: Never Assessed Comments Unknown Sex and Gender Information Value Date Recorded Sex Assigned at Not on file Legal Sex Female 4:37 AM HOSTED SERVICES ANALYST Gender Identity Female 07/15/2022 2:23 PM CDT Sexual Orientation Choose not to disclose 2023 12:05 PM CDT documented as of this encounter Plan of Treatment Not on file documented as of this encounter Procedures Procedure Name Priority Date/Time Associated Diagnosis Comments CARDIOLOGY REPORT 02/01/2015 CARDIOLOGY REPORT 02/01/2015 documented in this encounter Results * CARDIOLOGY REPORT (02/01/2015) Anatomical Region Laterality Modality Other Narrative 02/01/2015 Ordered by an unspecified provider. [facility] Provider CV CARDIAC SERVICES PROCE DURES Final Result * CARDIOLOGY REPORT (02/01/2015) Anatomical Region Laterality Modality Other Narrative 02/01/2015 Ordered by an unspecified provider. us Historical Provider CV CARDIAC SERVICES PROCE DURES Final Result documented in this encounter Visit Diagnoses Not on filedocumented in this encounter Care Teams Precast Molder Relationship Specialty Start Date End Date Asa Farias MD PCP - General 07/20/16 05/09/18 Albaro Hickman PA [address] [place] [address] [place] [address] PCP - General Physician Train Announcer 05/10/18 10/07/22 Crow Bernardo MD [address] [address] PCP - General Internal Medicine 10/08/22 08/11/23 Rupert Stevens DO [address] [address] PCP - General Internal Medicine 08/12/23 01/17/24 Maria Fernanda Wilde MD [address] [facility] [address] [place] [address] PCP - General Family Medicine 01/18/24 05/20/24 Maria Fernanda Wilde MD [address] [address] PCP - General Family Medicine 05/21/24 Rach Hayes MD [address] [place] [address] [facility] [address] Consulting Physician Pain Management 05/05/21 Neeta Rodriguez NP [address] [place] [address] [address] Referring Physician Orthopedic Surgery 05/22/21 Guru Florez MD PhD [address] [place] [address] [address] Referring Physician Cardiology 08/19/22 Yury Sheridan MD [address] [place] [address] [address] Consulting Physician Orthopedic Surgery 09/30/22 Albaro Hickman PA [address] [address] Physician Train Announcer Physician Train Announcer 10/08/22 Tello Phipps MD [address] [place] [address] [address] Referring Physician Orthopedic Surgery 04/14/23 documented as of this encounter
--- OUTSIDE RECORDS SUMMARY | 2024-05-30 15:24 | XMS_ITS | Encounter Summary ---
Author Organization [facility] Address [address] [place] [address] Phone Care Team Providers Care Personal Attendant Name Role Phone Asa Farias MD Primary Care Provider [phone] Albaro Hickman Primary Care Provider Rach Hayes MD Unavailable Neeta Rodriguez NP Unavailable +[phone] Guru Florez MD PhD Unavailable +[phone] Yury Sheridan MD Unavailable + [phone] Crow Bernardo MD Primary Care Provider + [phone] Albaro Hickman Unavailable +[phone] Tello Phipps MD Unavailable +[phone] Rupert Stevens DO Primary Care Provider +[phone] Maria Fernanda Wilde MD Primary Care Provider + [phone] Maria Fernanda Wilde MD Primary Care Provider Encounter Details Date Type Department Care Team (Late st Contact Info) Description 10/14/2014 Orders Only [facility] Provider, MD [place] [address] Social History Tobacco Use Types Packs/Day Years Used Date Smoking Tobacco: Never Assessed Comments Unknown Sex and Gender Information Value Date Recorded Sex Assigned at Not on file Legal Sex Female 4:37 AM CLAIMS ADJUDICATOR Gender Identity Female 07/15/2022 2:23 PM CDT Sexual Orientation Choose not to disclose 2023 12:05 PM CDT documented as of this encounter Plan of Treatment Not on file documented as of this encounter Procedures Procedure Name Priority Date/Time Associated Diagnosis Comments CARDIOLOGY REPORT 10/14/2014 CARDIOLOGY REPORT 10/14/2014 CARDIOLOGY REPORT 10/14/2014 CARDIOLOGY REPORT 10/14/2014 documented in this encounter Results * CARDIOLOGY REPORT (10/14/2014) Anatomical Region Laterality Modality Other Narrative 10/14/2014 Ordered by an unspecified provider. [facility] Provider CV CARDIAC SERVICES PROCE DURES Final Result * CARDIOLOGY REPORT (10/14/2014) Anatomical Region Laterality Modality Other Narrative 10/14/2014 Ordered by an unspecified provider. [facility] Provider CV CARDIAC SERVICES PROCE DURES Final Result * CARDIOLOGY REPORT (10/14/2014) Anatomical Region Laterality Modality Other Narrative 10/14/2014 Ordered by an unspecified provider. [facility] Provider CV CARDIAC SERVICES PROCE DURES Final Result * CARDIOLOGY REPORT (10/14/2014) Anatomical Region Laterality Modality Other Narrative 10/14/2014 Ordered by an unspecified provider. [facility] Provider CV CARDIAC SERVICES PROCE DURES Final Result documented in this encounter Visit Diagnoses Not on filedocumented in this encounter Care Teams Personal Attendant Relationship Specialty Start Date End Date Asa Farias MD PCP - General 07/20/16 05/09/18 Albaro Hickman PA [address] [facility] [address] [place] [address] PCP - General Physician Equipment Application Specialist 05/10/18 10/07/22 Crow Bernardo MD [address] [facility] [address] [place] [address] PCP - General Internal Medicine 10/08/22 08/11/23 Rupert Stevens DO [facility] [address] [place] [address] PCP - General Internal Medicine 08/12/23 01/17/24 Maria Fernanda Wilde MD [address] [facility] [address] [place] [address] PCP - General Family Medicine 01/18/24 05/20/24 Maria Fernanda Wilde MD [address] [address] PCP - General Family Medicine 05/21/24 Rach Hayes MD [facility], [address] [address] Consulting Physician Pain Management 05/05/21 Neeta Rodriguez, ENVIRONMENTAL STUDIES PROGRAM DIRECTOR [facility] [address] [place] [address] Referring Physician Orthopedic Surgery 05/22/21 Guru Florez MD PhD [address] [place] [address] [address] [place] [address] Referring Physician Cardiology 08/19/22 Yury Sheridan MD [address] [facility] [address] [place] [address] Consulting Physician Orthopedic Surgery 09/30/22 Albaro Hickman PA [address] [facility] [address] [place] [address] Physician Equipment Application Specialist Physician Equipment Application Specialist 10/08/22 Tello Phipps MD [address] [facility] [address] [place] [address] Referring Physician Orthopedic Surgery 04/14/23 documented as of this encounter
--- OUTSIDE RECORDS SUMMARY | 2024-05-30 15:24 | XMS_ITS | Encounter Summary ---
Author Organization [facility] Address [address] [place] [address] Phone Care Team Providers Care Piccolo Mechanic Name Role Phone Asa Farias MD Primary Care Provider [phone] Albaro Hickman Primary Care Provider Rach Hayes MD Unavailable Neeta Rodriguez NP Unavailable [phone] Gruu Florez MD PhD Unavailable [phone] Yury Sheridan MD Unavailable + [phone] Crow Bernardo MD Primary Care Provider + [phone] Albaro Hickman Unavailable +[phone] Tello Phipps MD Unavailable +[phone] Rupert Stevens DO Primary Care Provider +[phone] Maria Fernanda Wilde MD Primary Care Provider + [phone] Maria Fernanda Wilde MD Primary Care Provider Encounter Details Date Type Department Care Team (Late st Contact Info) Description 11/16/2015 Orders Only [facility] Provider, MD [place] [address] Social History Tobacco Use Types Packs/Day Years Used Date Smoking Tobacco: Never Assessed Comments Unknown Sex and Gender Information Value Date Recorded Sex Assigned at Not on file Legal Sex Female 4:37 AM PSYCHOLOGICAL AIDE Gender Identity Female 07/15/2022 2:23 PM CDT Sexual Orientation Choose not to disclose 2023 12:05 PM CDT documented as of this encounter Plan of Treatment Not on file documented as of this encounter Procedures Procedure Name Priority Date/Time Associated Diagnosis Comments CARDIOLOGY REPORT 11/16/2015 CARDIOLOGY REPORT 11/16/2015 documented in this encounter Results * CARDIOLOGY REPORT (11/16/2015) Anatomical Region Laterality Modality Other Narrative 11/16/2015 Ordered by an unspecified provider. Historical Provider CV CARDIAC SERVICES PROCE DURES Final Result * CARDIOLOGY REPORT (11/16/2015) Anatomical Region Laterality Modality Other Narrative 11/16/2015 Ordered by an unspecified provider. us Historical Provider CV CARDIAC SERVICES PROCE DURES Final Result documented in this encounter Visit Diagnoses Not on filedocumented in this encounter Care Teams Piccolo Mechanic Relationship Specialty Start Date End Date Asa Farias MD PCP - General 07/20/16 05/09/18 Albaro Hickman PA [address] [place] [address] PCP - General Physician Retail Loss Prevention Investigator 05/10/18 10/07/22 Crow Bernardo MD [address] [address] PCP - General Internal Medicine 10/08/22 08/11/23 Rupert Stevens DO [address] [address] PCP - General Internal Medicine 08/12/23 01/17/24 Maria Fernanda Wilde MD [address] [facility] [address] [place] [address] PCP - General Family Medicine 01/18/24 05/20/24 Maria Fernanda Wilde MD [address] [address] PCP - General Family Medicine 05/21/24 Rach Hayes MD [address] [place] [address] [facility] [address] Consulting Physician Pain Management 05/05/21 Neeta Rodriguez NP [address] [place] [address] [address] Referring Physician Orthopedic Surgery 05/22/21 Guru Florez MD PhD [address] [place] [address] [address] Referring Physician Cardiology 08/19/22 Yury Sheridan MD [address] [place] [address] [address] Consulting Physician Orthopedic Surgery 09/30/22 Albaro Hickman PA [address] [address] Physician Retail Loss Prevention Investigator Physician Retail Loss Prevention Investigator 10/08/22 Tello Phipps MD [address] [place] [address] [address] Referring Physician Orthopedic Surgery 04/14/23 documented as of this encounter
--- OUTSIDE RECORDS SUMMARY | 2024-05-30 15:24 | XMS_ITS | Encounter Summary ---
Author Organization [facility] Address [address] [place] [address] Phone Care Team Providers Care Balloon Artist Name Role Phone Asa Farias MD Primary Care Provider [phone] Albaro Hickman Primary Care Provider Rach Hayes MD Unavailable Neeta Rodriguez NP Unavailable [phone] Guru Florez MD PhD Unavailable [phone] Yury Sheridan MD Unavailable + [phone] Crow Bernardo MD Primary Care Provider + [phone] Albaro Hickman Unavailable +[phone] Tello Phipps MD Unavailable +[phone] Rupert Stevens DO Primary Care Provider [phone] Maria Fernanda Wilde MD Primary Care Provider + [phone] Maria Fernanda Wilde MD Primary Care Provider Encounter Details Date Type Department Care Team (Late st Contact Info) Description 10/09/2013 Orders Only [facility] Provider, MD Luis [facility] [place] [address] Social History Tobacco Use Types Packs/Day Years Used Date Smoking Tobacco: Never Assessed Comments Unknown Sex and Gender Information Value Date Recorded Sex Assigned at Not on file Legal Sex Female 4:37 AM EDGE BURNISHER UPPERS Gender Identity Female 07/15/2022 2:23 PM CDT Sexual Orientation Choose not to disclose 2023 12:05 PM CDT documented as of this encounter Plan of Treatment Not on file documented as of this encounter Procedures Procedure Name Priority Date/Time Associated Diagnosis Comments CARDIOLOGY REPORT 10/09/2013 documented in this encounter Results * CARDIOLOGY REPORT (10/09/2013) Anatomical Region Laterality Modality Other Narrative 10/09/2013 Ordered by an unspecified provider. us Historical Provider CV CARDIAC SERVICES CONNOR MANUEL Final Result documented in this encounter Visit Diagnoses Not on filedocumented in this encounter Care Teams Balloon Artist Relationship Specialty Start Date End Date Asa Farias MD PCP - General 07/20/16 05/09/18 Albaro Hickman PA [address] [address] PCP - General Physician Web Operations Manager 05/10/18 10/07/22 Crow Bernardo MD [address] [address] PCP - General Internal Medicine 10/08/22 08/11/23 Rupert Stevens DO [address] [place] [address] [address] [place] [address] PCP - General Internal Medicine 08/12/23 01/17/24 Maria Fernanda Wilde MD [address] [facility] [address] [place] [address] PCP - General Family Medicine 01/18/24 05/20/24 Maria Fernanda Wilde MD [address] [address] PCP - General Family Medicine 05/21/24 Rach Hayes MD [facility], [address] [address] Consulting Physician Pain Management 05/05/21 Neeta Rodriguez NP [address] [place] [address] [address] [place] [address] Referring Physician Orthopedic Surgery 05/22/21 Guru Florez MD PhD [address] [place] [address] [address] [place] [address] Referring Physician Cardiology 08/19/22 Yury Sheridan MD [address] [place] [address] [address] [place] [address] Consulting Physician Orthopedic Surgery 09/30/22 Albaro Hickman PA [address] [address] Physician Web Operations Manager Physician Web Operations Manager 10/08/22 Tello Phipps MD [address] [place] [address] [address] [place] [address] Referring Physician Orthopedic Surgery 04/14/23 documented as of this encounter
--- OUTSIDE RECORDS SUMMARY | 2024-05-30 15:24 | XMS_ITS | Encounter Summary ---
Author Organization [facility] Address [address] [place] [address] Phone Care Team Providers Care Lathe Mechanic Name Role Phone Asa Farias MD Primary Care Provider [phone] Albaro Hickman Primary Care Provider Rach Hayes MD Unavailable Neeta Rodriguez NP Unavailable +[phone] Guru Florez MD PhD Unavailable [phone] Yury Sheridan MD Unavailable + [phone] Crow Bernardo MD Primary Care Provider + [phone] Albaro Hickman Unavailable +[phone] Tello Phipps MD Unavailable +[phone] Rupert Stevens DO Primary Care Provider +[phone] Maria Fernanda Wilde MD Primary Care Provider + [phone] Maria Fernanda Wilde MD Primary Care Provider Encounter Details Date Type Department Care Team (Late st Contact Info) Description 07/13/2013 Orders Only [facility] Provider, MD Luis [facility] [place] [address] Social History Tobacco Use Types Packs/Day Years Used Date Smoking Tobacco: Never Assessed Comments Unknown Sex and Gender Information Value Date Recorded Sex Assigned at Not on file Legal Sex Female 4:37 AM PHOTO STUDIO ASSISTANT Gender Identity Female 07/15/2022 2:23 PM CDT Sexual Orientation Choose not to disclose 2023 12:05 PM CDT documented as of this encounter Plan of Treatment Not on file documented as of this encounter Procedures Procedure Name Priority Date/Time Associated Diagnosis Comments CARDIOLOGY REPORT 07/13/2013 documented in this encounter Results * CARDIOLOGY REPORT (07/13/2013) Anatomical Region Laterality Modality Other Narrative 07/13/2013 Ordered by an unspecified provider. us Historical Provider CV CARDIAC SERVICES CONNOR MANUEL Final Result documented in this encounter Visit Diagnoses Not on filedocumented in this encounter Care Teams Lathe Mechanic Relationship Specialty Start Date End Date Asa Farias MD PCP - General 07/20/16 05/09/18 Albaro Hickman PA [address] [address] PCP - General Physician Race Starter 05/10/18 10/07/22 Crow Bernardo MD [address] [address] PCP - General Internal Medicine 10/08/22 08/11/23 Rupert Stevens DO [address] [place] [address] [address] [place] [address] PCP - General Internal Medicine 08/12/23 01/17/24 Maria Fernanda Wilde MD [address] [facility] [address] [place] [address] PCP - General Family Medicine 01/18/24 05/20/24 Maria Fernanda Wilde MD [address] [address] PCP - General Family Medicine 05/21/24 Rach Hayes MD [facility], [address] [address] Consulting Physician Pain Management 05/05/21 Neeta Rodriguez NP [address] [place] [address] [address] [place] [address] Referring Physician Orthopedic Surgery 05/22/21 Guru Florez MD PhD [address] [place] [address] [address] [place] [address] Referring Physician Cardiology 08/19/22 Yury Sheridan MD [address] [place] [address] [address] [place] [address] Consulting Physician Orthopedic Surgery 09/30/22 Albaro Hickman PA [address] [address] Physician Race Starter Physician Race Starter 10/08/22 Tello Phipps MD [address] [place] [address] [address] [place] [address] Referring Physician Orthopedic Surgery 04/14/23 documented as of this encounter
--- OUTSIDE RECORDS SUMMARY | 2024-05-30 15:24 | XMS_ITS | Encounter Summary ---
Author Organization [facility] Address [address] [place] [address] Phone Care Team Providers Care Prototype Fabricator Name Role Phone Asa Farias MD Primary Care Provider [phone] Albaro Hickman Primary Care Provider Rach Hayes MD Unavailable Neeta Rodriguez NP Unavailable [phone] Guru Florez MD PhD Unavailable [phone] Yury Sheridan MD Unavailable + [phone] Crow Bernardo MD Primary Care Provider + [phone] Albaro Hickman Unavailable +[phone] Tello Phipps MD Unavailable +[phone] Rupert Stevens DO Primary Care Provider +[phone] Maria Fernanda Wilde MD Primary Care Provider + [phone] Maria Fernanda Wiled MD Primary Care Provider Encounter Details Date Type Department Care Team (Late st Contact Info) Description 04/10/2016 Orders Only [facility] Provider, MD Luis [place] [address] Social History Tobacco Use Types Packs/Day Years Used Date Smoking Tobacco: Never Assessed Comments Unknown Sex and Gender Information Value Date Recorded Sex Assigned at Not on file Legal Sex Female 4:37 AM SUPPLIER QUALITY Gender Identity Female 07/15/2022 2:23 PM CDT Sexual Orientation Choose not to disclose 2023 12:05 PM CDT documented as of this encounter Plan of Treatment Not on file documented as of this encounter Procedures Procedure Name Priority Date/Time Associated Diagnosis Comments CARDIOLOGY REPORT 04/10/2016 CARDIOLOGY REPORT 04/10/2016 documented in this encounter Results * CARDIOLOGY REPORT (04/10/2016) Anatomical Region Laterality Modality Other Narrative 04/10/2016 Ordered by an unspecified provider. Historical Provider CV CARDIAC SERVICES PROCE DURES Final Result * CARDIOLOGY REPORT (04/10/2016) Anatomical Region Laterality Modality Other Narrative 04/10/2016 Ordered by an unspecified provider. us Historical Provider CV CARDIAC SERVICES PROCE DURES Final Result documented in this encounter Visit Diagnoses Not on filedocumented in this encounter Care Teams Prototype Fabricator Relationship Specialty Start Date End Date Asa Farias MD PCP - General 07/20/16 05/09/18 Albaro Hickman PA [address] [place] [address] PCP - General Physician Tractor Crane Engineer 05/10/18 10/07/22 Crow Bernardo MD [address] [address] PCP - General Internal Medicine 10/08/22 08/11/23 Rupert Stevens DO [address] [address] PCP - General Internal Medicine 08/12/23 01/17/24 Maria Fernanda Wilde MD [address] [facility] [address] [place] [address] PCP - General Family Medicine 01/18/24 05/20/24 Maria Fernanda Wilde MD [address] [address] PCP - General Family Medicine 05/21/24 Rach Hayes MD [address] [place] [address] [facility] [address] Consulting Physician Pain Management 05/05/21 Neeta Rodriguez NP [address] [place] [address] [address] Referring Physician Orthopedic Surgery 05/22/21 Guru Florez MD PhD [address] [place] [address] [address] Referring Physician Cardiology 08/19/22 Yury Sheridan MD [address] [place] [address] [address] Consulting Physician Orthopedic Surgery 09/30/22 Albaro Hickman PA [address] [address] Physician Tractor Crane Engineer Physician Tractor Crane Engineer 10/08/22 Tello Phipps MD [address] [place] [address] [address] Referring Physician Orthopedic Surgery 04/14/23 documented as of this encounter
--- OUTSIDE RECORDS SUMMARY | 2024-05-30 15:24 | XMS_ITS | Encounter Summary ---
Author Organization [facility] Address [address] [place] [address] Phone Care Team Providers Care Linotypist Name Role Phone Asa Farias MD Primary Care Provider [phone] Albaro Hickman Primary Care Provider Rach Hayes MD Unavailable Neeta Rodriguez NP Unavailable [phone] Guru Florez MD PhD Unavailable [phone] Yury Sheridan MD Unavailable + [phone] Crow Bernardo MD Primary Care Provider + [phone] Albaro Hickman Unavailable [phone] Tello Phipps MD Unavailable [phone] Rupert Stevens DO Primary Care Provider [phone] Maria Fernanda Wilde MD Primary Care Provider + [phone] Maria Fernanda Wilde MD Primary Care Provider Encounter Details Date Type Department Care Team (Late st Contact Info) Description 09/01/2015 Orders Only [facility] Provider, MD Luis [facility] [place] [address] Social History Tobacco Use Types Packs/Day Years Used Date Smoking Tobacco: Never Assessed Comments Unknown Sex and Gender Information Value Date Recorded Sex Assigned at Not on file Legal Sex Female 4:37 AM CHOCOLATE PRODUCTION MACHINE OPERATOR Gender Identity Female 07/15/2022 2:23 PM CDT Sexual Orientation Choose not to disclose 2023 12:05 PM CDT documented as of this encounter Plan of Treatment Not on file documented as of this encounter Procedures Procedure Name Priority Date/Time Associated Diagnosis Comments CARDIOLOGY REPORT 09/01/2015 CARDIOLOGY REPORT 09/01/2015 documented in this encounter Results * CARDIOLOGY REPORT (09/01/2015) Anatomical Region Laterality Modality Other Narrative 09/01/2015 Ordered by an unspecified provider. [facility] Provider CV CARDIAC SERVICES PROCE DURES Final Result * CARDIOLOGY REPORT (09/01/2015) Anatomical Region Laterality Modality Other Narrative 09/01/2015 Ordered by an unspecified provider. us Historical Provider CV CARDIAC SERVICES PROCE DURES Final Result documented in this encounter Visit Diagnoses Not on filedocumented in this encounter Care Teams Linotypist Relationship Specialty Start Date End Date Asa Farias MD PCP - General 07/20/16 05/09/18 Albaro Hickman PA [address] [place] [address] PCP - General Physician Electrician Apprentice Powerhouse 05/10/18 10/07/22 Crow Bernardo MD [address] [address] PCP - General Internal Medicine 10/08/22 08/11/23 Rupert Stevens DO [address] [address] PCP - General Internal Medicine 08/12/23 01/17/24 Maria Fernanda Wilde MD [address] [facility] [address] [place] [address] PCP - General Family Medicine 01/18/24 05/20/24 Maria Fernanda Wilde MD [address] [address] PCP - General Family Medicine 05/21/24 Rach Hayes MD [address] [place] [address] [facility] [address] Consulting Physician Pain Management 05/05/21 Neeta Rodriguez NP [address] [place] [address] [address] Referring Physician Orthopedic Surgery 05/22/21 Guru Florez MD PhD [address] [place] [address] [address] Referring Physician Cardiology 08/19/22 Yury Sheridan MD [address] [place] [address] [address] Consulting Physician Orthopedic Surgery 09/30/22 Albaro Hickman PA [address] [address] Physician Electrician Apprentice Powerhouse Physician Electrician Apprentice Powerhouse 10/08/22 Tello Phipps MD [address] [place] [address] [address] Referring Physician Orthopedic Surgery 04/14/23 documented as of this encounter
--- OUTSIDE RECORDS SUMMARY | 2024-05-30 15:24 | XMS_ITS | Encounter Summary ---
Author Organization [facility] Address [address] [place] [address] Phone Care Team Providers Care Skilled Labor Name Role Phone Asa Farias MD Primary Care Provider [phone] Albaro Hickman Primary Care Provider Rach Hayes MD Unavailable Neeta Rodriguez NP Unavailable [phone] Guru Florez MD PhD Unavailable [phone] Yury Sheridan MD Unavailable + [phone] Crow Bernardo MD Primary Care Provider + [phone] Albaro Hickman Unavailable [phone] Tello Phipps MD Unavailable [phone] Rupert Stevens DO Primary Care Provider [phone] Maria Fernanda Wilde MD Primary Care Provider + [phone] Maria Fernanda Wilde MD Primary Care Provider Encounter Details Date Type Department Care Team (Late st Contact Info) Description 11/24/2015 Orders Only [facility] Provider, MD Luis [facility] [place] [address] Social History Tobacco Use Types Packs/Day Years Used Date Smoking Tobacco: Never Assessed Comments Unknown Sex and Gender Information Value Date Recorded Sex Assigned at Not on file Legal Sex Female 4:37 AM POST HOLE DIGGER Gender Identity Female 07/15/2022 2:23 PM CDT Sexual Orientation Choose not to disclose 2023 12:05 PM CDT documented as of this encounter Plan of Treatment Not on file documented as of this encounter Procedures Procedure Name Priority Date/Time Associated Diagnosis Comments CARDIOLOGY REPORT 11/24/2015 CARDIOLOGY REPORT 11/24/2015 documented in this encounter Results * CARDIOLOGY REPORT (11/24/2015) Anatomical Region Laterality Modality Other Narrative 11/24/2015 Ordered by an unspecified provider. Historical Provider CV CARDIAC SERVICES PROCE DURES Final Result * CARDIOLOGY REPORT (11/24/2015) Anatomical Region Laterality Modality Other Narrative 11/24/2015 Ordered by an unspecified provider. us Historical Provider CV CARDIAC SERVICES PROCE DURES Final Result documented in this encounter Visit Diagnoses Not on filedocumented in this encounter Care Teams Skilled Labor Relationship Specialty Start Date End Date Asa Farias MD PCP - General 07/20/16 05/09/18 Albaro Hickman PA [address] [place] [address] PCP - General Physician Pipeline Operator 05/10/18 10/07/22 Crow Bernardo MD [address] [address] PCP - General Internal Medicine 10/08/22 08/11/23 Rupert Stevens DO [address] [address] PCP - General Internal Medicine 08/12/23 01/17/24 Maria Fernanda Wilde MD [address] [facility] [address] [place] [address] PCP - General Family Medicine 01/18/24 05/20/24 Maria Fernanda Wilde MD [address] [address] PCP - General Family Medicine 05/21/24 Rach Hayes MD [address] [place] [address] [facility] [address] Consulting Physician Pain Management 05/05/21 Neeta Rodriguez NP [address] [place] [address] [address] Referring Physician Orthopedic Surgery 05/22/21 Guru Florez MD PhD [address] [place] [address] [address] Referring Physician Cardiology 08/19/22 Yury Sheridan MD [address] [place] [address] [address] Consulting Physician Orthopedic Surgery 09/30/22 Albaro Hickman PA [address] [address] Physician Pipeline Operator Physician Pipeline Operator 10/08/22 Tello Phipps MD [address] [place] [address] [address] Referring Physician Orthopedic Surgery 04/14/23 documented as of this encounter
--- OUTSIDE RECORDS SUMMARY | 2024-05-30 15:24 | XMS_ITS | Clinical Summary ---
Author Organization [facility] Address [address] [place] [address] Care Team Providers Care Taxation Inspector Name Role Phone Maria Fernanda Wilde MD Primary Care Provider + Allergies Active Allergy Reactions Criticality Noted Date Comments Codeine Nausea and Vomiting,GI Upset 024 Erythromycin GI Upset 04/27/2024 Latex Rash Low 01/03/2024 Sulfa Antibiotics Rash Low 01/03/2024 Medications ELIQUIS 5 MG tablet Take 1 tablet (5 mg total) by mouth 2 (two) times daily. 4 Active flecainide (TAMBOCOR) 100 MG tablet Take 1 tablet (100 mg total) by mouth 2 (two) times daily. 4 Active propranolol LA (INDERAL LA) 160 MG 24 hr capsule Take 1 capsule (160 mg total) by mouth daily. 4 Active Cholecalciferol (VITAMIN D3) 25 MCG (1000 UT) Cap Take 1,000 Units by mouth daily. Active Cyanocobalamin 2000 MCG Tab CR Take 2,000 mcg by mouth daily. Active sertraline (ZOLOFT) 100 MG tabletIndications:R ecurrent major depressive disorder, in full remission Take 1 tablet (100 mg total) by mouth daily. 90 tablet 3 4 01/03/20 25 Active gabapentin (NEURONTIN) 100 MG capsuleIndications: Atypical migraine Take 1 capsule (100 mg total) by mouth 3 (three) times daily. 270 capsule 3 4 01/03/20 25 Active losartan (COZAAR) 100 MG tabletIndications:E ssential hypertension Take 1 tablet (100 mg total) by mouth daily. 90 tablet 5 Active CHAIR LIFTIndications:Ludwin ateral primary osteoarthritis of knee,Spinal stenosis of lumbar region, unspecified whether neurogenic claudication present,Degeneratio n of intervertebral disc of lumbar region with discogenic back pain and lower extremity pain 1 Device by Other route as needed. 1 Device 5 Active Active Problems Problem Noted Date Diagnosed Date Essential hypertension 01/03/2024 Overview (01/03/2024): Takes losartan and also on propranolol for other conditions. Assessment & Plan (01/03/2024 3:07 PM GEOPHYSICAL E LOGGER): Chronic and controlled. Managed by cardiology. Ordered CMP to evaluate electrolytes. VANIA on CPAP 01/03/2024 LINNEA (generalized anxiety disorder) 01/03/2024 Overview (01/03/2024): Taking sertraline for several years. She reports that she was feeling quite low especially since her had dementia and she was his primary caregiver. She is happy taking the medication. Assessment & Plan (01/03/2024 3:06 PM GEOPHYSICAL E LOGGER): Chronic. Seems controlled. Continue sertraline. Recurrent major depressive disorder, in full rem ission 01/03/2024 Overview (01/03/2024): Has been taking sertraline 100 mg daily. Vitamin D deficiency 01/03/2024 Overview (01/03/2024): Taking supplementation. Assessment & Plan (01/03/2024 3:07 PM GEOPHYSICAL E LOGGER): Will repeat vitamin D level to confirm supplementation is adequate and that it is controlled. Bilateral primary osteoarthritis of knee 024 DDD (degenerative disc disease), lumbar 01/03/20 24 Overview (01/03/2024): Has spinal cord stimulator for pain. Has some spinal stenosis. Morbid (severe) obesity due to excess calories 1 03/04/2023 Assessment & Plan (01/03/2024 3:08 PM GEOPHYSICAL E LOGGER): Encourage lifestyle changes. Paroxysmal atrial fibrillation (CMS/HCC HHS/HCC) 10/11/2022 Overview (01/03/2024): Anticoagulated on eliquis. Takes flecainide and propranolol. Assessment & Plan (01/03/2024 3:07 PM GEOPHYSICAL E LOGGER): No recent CBC on file. Will confirm she is not anemic while taking Eliquis. Stable and controlled otherwise managed by cardiology. Supraventricular tachycardia ([facility]) 4 Overview (01/03/2024): Sees cardiology, Dr. Florez through [facility]. 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 Weather related- usually rain. Once a month average. Assessment & Plan (01/03/2024 3:07 PM GEOPHYSICAL E LOGGER): Chronic and controlled. Continue gabapentin. Encounters Date Type Department Care Team Description 05/23/2024 MyChart Message Enc [address] [place] [address] Maria Fernanda Wilde MD Blood Pressure RX 05/16/2024 Scan [facility] SRVCS Scanned, [facility] 05/14/[address] [place] [address] Maria Fernanda Wilde MD Record Request 05/11/2024 Scan [facility] SRVCS Scanned, [facility] Mammogram (SCAN) 05/11/2024 MyChart Message Enc [address] [place] [address], [place] [address] Maria Fernanda Wilde MD Blood Pressure Log 05/01/2024 MyChart Message Enc [address] [place] [address] Maria Fernanda Wilde MD Stair Chair Lift Approval 04/30/2024 Scan [facility] SRVCS Scanned, [facility] Pathology (SCAN) 04/27/2024 10:10 AM GEOPHYSICAL E LOGGER Office Visit [address] [place] [address] Maria Fernanda Wilde MD Follow Up (Pt here to discuss medical conditions and getting assistance to get a chair lift for her steps. ) 04/27/2024 Scan [facility] INFO SRVCS Scanned, [facility] 04/27/2024 Travel 04/19/[address] [place] [address] Maria Fernanda Wilde MD Referral 04/12/[address] [place] [address] Maria Fernanda Wilde MD Information 04/06/[address] [place] [address] Maria Fernanda Wilde MD Information from Last 3 Months Immunizations Name Administration Dates Next Due Arexvy Respiratory Syncytial Virus (RSV, adjuvanted) 0.5 mL, PF 01/21/2023 FLUAD (IIV, Trivalent, 0.5 M L Pre-filled Syringe) 12/27/2023 Influenza (Generic) 12/14/2020 Influenza Adult (Generic) 12/15/2022,,11/14/2018,2017 Pneumococcal (Prevnar 20) 12/27/2023 Shingrix 10/25/2017 Tdap (Generic) 09/04/2023,11/04/2013 Zoster (Zostavax) 10119 Unt/0.65Ml 01/03/2016 Family History Medical History Relation Comments Atrial fibrillation Brother 1 No Known Problems Brother 2 Dementia Father Arthritis Mother Celiac disease Sister 1 No Known Problems Sister 2 No Known Problems Sister 3 No Known Problems Son Relation Status Comments Brother 1 Alive Brother 2 Alive Father Mother Sister 1 Alive Sister 2 Alive Sister 3 Alive Son Alive Social History Tobacco Use Types Packs/Day Years Used Date Smoking Tobacco: Never Passive Smoke Exposure: Never Smokeless Tobacco: Never Tobacco Cessation:Counseling Given: No Alcohol Use Standard Drinks/Week Comments Not Currently 0 (1 standard drink = 0.6 oz pur e alcohol) PHQ-2 Answer Date Recorded Patient Health Questionnaire-2 Score 1 04/27/2024 Comments No Sex and Gender Information Value Date Recorded Sex Assigned at Female 04/27/2024 10:19 AM GEOPHYSICAL E LOGGER Legal Sex Female 7:53 PM CDT Gender Identity Female 04/27/2024 10:19 AM GEOPHYSICAL E LOGGER Sexual Orientation Not on file Last Filed Vital Signs Vital Sign Reading Time Taken Comments Blood Pressure 167/88 04/27/2024 10:27 AM GEOPHYSICAL E LOGGER Pulse 58 04/27/2024 10:15 AM GEOPHYSICAL E LOGGER Temperature 35.8 C (96.5 F) 04/27/2024 10:15 AM GEOPHYSICAL E LOGGER Respiratory Rate 22 04/27/2024 10:15 AM GEOPHYSICAL E LOGGER Oxygen Saturation 96% 04/27/2024 10:15 AM GEOPHYSICAL E LOGGER Inhaled Oxygen Concentration - - Weight 96.2 kg (212 lb) 04/27/2024 10:15 AM GEOPHYSICAL E LOGGER Height 162.6 cm (5' 4 ) 04/27/2024 10:15 AM GEOPHYSICAL E LOGGER Body Mass Index 36.39 04/27/2024 10:15 AM GEOPHYSICAL E LOGGER Plan of Treatment Upcoming Encounters Date Type Department Care Team (Late st Contact Info) Description 06/19/2024 1:40 PM CDT Office Visit [facility] Family Medicine - [place] [address] [facility] [address] [place] [address] Maria Fernanda Wilde MD [address] [place] [address] Health Maintenance Due Date Last Done Comments Hepatitis C 06/12/1973 Zoster Vaccines (3 of 3) 12/20/2017 10/25/2017, 12/22 Annual Medicare Wellness Visit 06/12/2020 Dexa Scan (General) 06/12/2020 COVID-19 Vaccine ( season) 2023 01/21/2023, 12/23/2021, 11/25/2020, Additional history exists Mammogram Screening 05/11/2026 05/11/2024, Colorectal Cancer Screening Colonoscopy (10 Years) 05/08/2031 05/07/2021 DTaP, Tdap and Td Vaccines (3 - Td or Tdap) 09/03/2033 09/04/2023, 11/04/2013 RSV Immunization or 60+ Years Completed 01/21/2023 Pneumococcal Vaccine: 65+ Years Completed 12/27/2023 PHQ-2 (Physician [place]) Completed 04/27/2024 Meningococcal B Vaccine Aged Out No l onger eligible based on patient's age to complete this topic Meningococcal Vaccine Aged Out No cesar mode eligible based on patient's age to complete this topic RSV Immunizations Under 20 Months Aged Out No longer eligible based on patient's age to complete this topic Procedures Procedure Name Priority Date/Time Associated Diagnosis Comments MAMMOGRAM GENERIC (SCAN ORDER) 05/11/2024 PATHOLOGY GENERIC (SCAN ORDER) 04/30/2024 VITAMIN B-12 Today 04/19/2024 8:52 AM GEOPHYSICAL E LOGGER Routine general medical examination at a health care facility VITAMIN D, 25 OH 04/19/2024 8:50 AM GEOPHYSICAL E LOGGER CBC W/DIFF AUTOMATED Routine 04/19/2024 8:50 AM GEOPHYSICAL E LOGGER Paroxysmal atrial fibrillation ([facility]) LIPID PANEL Today 04/19/2024 8:50 AM GEOPHYSICAL E LOGGER Routine general medical examination at a health care facility HEMOGLOBIN, GLYCOSYLATED Today 04/19/2024 8:50 AM GEOPHYSICAL E LOGGER Routine general medical examination at a health care facility COLONOSCOPY GENERIC (SCAN ORDER) 05/07/2021 from Last 3 Months or Most Recently Relevant to Health Maintenance Results * MAMMOGRAM GENERIC (SCAN ORDER) (05/11/2024) Anatomical Region Laterality Modality Other 05/11/2024 us [facility] Scanned SCANNING Final Resu lt * PATHOLOGY GENERIC (SCAN ORDER) (04/30/2024) 04/30/2024 us [facility] Scanned SCANNING Final Resu lt * VITAMIN B-12 (04/19/2024 8:52 AM GEOPHYSICAL E LOGGER) Pathologist [facility] VITAMIN B12 S/P/B 952 232 - 1,245 pg/mL [facility] 1 04/19/2024 8:52 AM GEOPHYSICAL E LOGGER 04/19/2024 Narrative [facility] - 04/20/2024 8:07 AM GEOPHYSICAL E LOGGER Performed at: [address] [place] [id number] Tunnel Inspector: Portillo Uriostegui PhD, Phone: [phone] us Maria Fernanda Wilde MD LABORATORY Final Re sult Performing Organization Address [facility] [place] [address] [facility] 1 * HEMOGLOBIN, GLYCOSYLATED (04/19/2024 8:50 AM GEOPHYSICAL E LOGGER) Pathologist [facility] HGB A1C 5.0 4.8 - 5.6 % [facility] 1 Comment: Prediabetes: 5.7 - 6.4 Diabetes: >6.4 Glycemic control for adults with diabetes: <7.0 04/19/2024 8:50 AM GEOPHYSICAL E LOGGER 04/19/2024 Narrative [facility] - 04/20/2024 8:07 AM GEOPHYSICAL E LOGGER Performed at: [facility] [id number] Tunnel Inspector: Portillo Uriostegui PhD, Phone: [phone] us Maria Fernanda Wilde MD LABORATORY Final Re sult Performing Organization Address [facility] de Phone Number [place] [address] [facility] 1 * (ABNORMAL) LIPID PANEL (04/19/2024 8:50 AM GEOPHYSICAL E LOGGER) CHOLESTEROL 214(H) 100 - 199 mg/dL [facility] 1 TRIGLYCERIDES 101 0 - 149 mg/dL [facility] 1 HDL 67 >39 mg/dL [facility] 1 VLDL CALCULATION 18 5 - 40 mg/dL [facility] 1 LDL (CALCULATED) 129(H) 0 - 99 mg/dL [facility] 1 04/19/2024 8:50 AM GEOPHYSICAL E LOGGER 04/19/2024 Narrative [facility] - 04/20/2024 8:07 AM GEOPHYSICAL E LOGGER Performed at: - [facility] [address] [id number] Tunnel Inspector: Portillo Uriostegui PhD, Phone: [phone] us Maria Fernanda Wilde MD LABORATORY Final Re sult [facility] [address] [place] [address] [facility] 1 * CBC W/DIFF AUTOMATED (04/19/2024 8:50 AM GEOPHYSICAL E LOGGER) [facility] WBC 5.3 3.4 - 10.8 x10E3/uL [facility] 1 RBC 4.43 3.77 - 5.28 x10E6/uL [facility] 1 HGB 12.7 11.1 - 15.9 g/dL [facility] 1 HCT 40.0 34.0 - 46.6 % [facility] 1 MCV 90 79 - 97 fL [facility] 1 MCH 28.7 26.6 - 33.0 pg [facility] 1 MCHC 31.8 31.5 - 35.7 g/dL [facility] 1 RDW 12.9 11.7 - 15.4 % [facility] 1 PLATELET COUNT 270 150 - 450 x10E3/uL [facility] 1 NEUTROPHILS % 56 Not Estab. % [facility] 1 LYMPHOCYTES % 30 Not Estab. % [facility] 1 MONOCYTES % 8 Not Estab. % [facility] 1 EOSINOPHILS % 5 Not Estab. % [facility] 1 BASOPHILS % 1 Not Estab. % [facility] 1 ABS. NEUTROPHILS 3.0 1.4 - 7.0 x10E3/uL [facility] 1 ABS. LYMPHOCYTES 1.6 0.7 - 3.1 x10E3/uL [facility] 1 MONOCYTES 0.4 0.1 - 0.9 x10E3/uL [facility] 1 ABS. EOSINOPHILS 0.3 0.0 - 0.4 x10E3/uL [facility] 1 ABS. BASOPHILS 0.0 0.0 - 0.2 x10E3/uL [facility] 1 ABS. IMMATURE GRANULOCYTES 0 Not Estab. % [facility] 1 ABS. IMMATURE GRANULOCYTES 0.0 0.0 - 0.1 x10E3/uL [facility] 1 04/19/2024 8:50 AM GEOPHYSICAL E LOGGER 04/19/2024 Narrative [facility] - 04/20/2024 8:07 AM GEOPHYSICAL E LOGGER Performed at: - [facility] [id number] Tunnel Inspector: Portillo Uriostegui PhD, Phone: [phone] us Maria Fernanda Wilde MD LABORATORY Final Re sult [facility] [address] [place] [address] [facility] 1 * VITAMIN D, 25 OH (04/19/2024 8:50 AM GEOPHYSICAL E LOGGER) VITAMIN D 25 HYDROXY S/P/B 33.5 30.0 - 100.0 ng/mL [facility] 1 Comment: Vitamin D deficiency has been defined by the [place] of Medicine and an Endocrine Society practice guideline as a level of serum 25-OH vitamin D less than 20 ng/mL (1,2). The Endocrine Society went on to further define vitamin D insufficiency as a level between 21 and 29 ng/mL (2). 1. IOM ([place] of Medicine). 2010. Dietary reference intakes for calcium and D. [place]: The National Academies Press. 2. Jennifer MF, Devan [place], Moraima BROTHERS, et al. Evaluation, treatment, and prevention of vitamin D deficiency: an Endocrine Society clinical practice guideline. JCEM. 2010; 96(7):1911-30. 04/19/2024 8:50 AM GEOPHYSICAL E LOGGER 04/19/2024 Narrative [facility] - 04/20/2024 8:07 AM GEOPHYSICAL E LOGGER Performed at: - [facility] [address] [id number] Tunnel Inspector: Portillo Uriostegui PhD, Phone: [phone] us Maria Fernanda Wilde MD LABORATORY Final Re sult [facility] [address] [place] [address] [facility] 1 * COLONOSCOPY GENERIC (SCAN ORDER) (05/07/2021) 05/07/2021 [facility] Scanned SCANNING Final Resu lt from Last 3 Months or Most Recently Relevant to Health Maintenance Insurance MED REPLACE [facility] [place] [address] Care Teams Taxation Inspector Relationship Specialty Start Date End Date Maria Fernanda Wilde MD [address] [place] [id number] PCP - General FAMILY PRACTICE 01/03/24
--- OUTSIDE RECORDS SUMMARY | 2024-05-30 15:24 | XMS_ITS | Encounter Summary ---
Author Organization [facility] Address [address] [place] [address] Phone Care Team Providers Care Web Press Operator Apprentice Name Role Phone Asa Farias MD Primary Care Provider [phone] Albaro Hickman Primary Care Provider Rach Hayes MD Unavailable Neeta Rodriguez NP Unavailable +[phone] Guru Florez MD PhD Unavailable +[phone] Yury Sheridan MD Unavailable + [phone] Crow Bernardo MD Primary Care Provider + [phone] Albaro Hickman Unavailable +[phone] Tello Phipps MD Unavailable +[phone] Rupert Stevens DO Primary Care Provider [phone] Maria Fernanda Wilde MD Primary Care Provider + [phone] Maria Fernanda Wilde MD Primary Care Provider Encounter Details Date Type Department Care Team (Late st Contact Info) Description 10/04/2014 Orders Only [facility] Provider, MD Luis [facility] [place] [address] Social History Tobacco Use Types Packs/Day Years Used Date Smoking Tobacco: Never Assessed Comments Unknown Sex and Gender Information Value Date Recorded Sex Assigned at Not on file 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 [facility] Provider CV CARDIAC SERVICES PROCE DURES Final Result * CARDIOLOGY REPORT (10/04/2014) Anatomical Region Laterality Modality Other Narrative 10/04/2014 Ordered by an unspecified provider. us Historical Provider CV CARDIAC SERVICES PROCE DURES Final Result documented in this encounter Visit Diagnoses Not on filedocumented in this encounter Care Teams Web Press Operator Apprentice Relationship Specialty Start Date End Date Asa Farias MD PCP - General 07/20/16 05/09/18 Albaro Hickman PA [address] [place] [address] PCP - General Physician Armament Aircraft Mechanic 05/10/18 10/07/22 Crow Bernardo MD [address] [address] PCP - General Internal Medicine 10/08/22 08/11/23 Rupert Stevens DO [address] [address] PCP - General Internal Medicine 08/12/23 01/17/24 Maria Fernanda Wilde MD [address] [facility] [address] [place] [address] PCP - General Family Medicine 01/18/24 05/20/24 Maria Fernanda Wilde MD [address] [address] PCP - General Family Medicine 05/21/24 Rach Hayes MD [address] [place] [address] [facility] [address] Consulting Physician Pain Management 05/05/21 Neeta Rodriguez NP [address] [place] [address] [address] Referring Physician Orthopedic Surgery 05/22/21 Guru Florez MD PhD [address] [place] [address] [address] Referring Physician Cardiology 08/19/22 Yury Sheridan MD [address] [place] [address] [address] Consulting Physician Orthopedic Surgery 09/30/22 Albaro Hickman PA [address] [address] Physician Armament Aircraft Mechanic Physician Armament Aircraft Mechanic 10/08/22 Tello Phipps MD [address] [place] [address] [address] Referring Physician Orthopedic Surgery 04/14/23 documented as of this encounter
--- OUTSIDE RECORDS SUMMARY | 2024-05-30 15:24 | XMS_ITS | Encounter Summary ---
Author Organization [facility] Address [address] [place] [address] Phone Care Team Providers Care Garbage Collector Supervisor Name Role Phone Asa Farias MD Primary Care Provider [phone] Albaro Hickman Primary Care Provider Rach Hayes MD Unavailable Neeta Rodriguez NP Unavailable +[phone] Guru Florez MD PhD Unavailable +[phone] Yury Sheridan MD Unavailable + [phone] Crow Bernardo MD Primary Care Provider + [phone] Albaro Hickman Unavailable +[phone] Tello Phipps MD Unavailable +[phone] Rupert Stevens DO Primary Care Provider +[phone] Maria Fernanda Wilde MD Primary Care Provider + [phone] Maria Fernanda Wilde MD Primary Care Provider Encounter Details Date Type Department Care Team (Late st Contact Info) Description 05/03/2016 Orders Only [facility] Provider, MD Luis [facility] [place] [address] Social History Tobacco Use Types Packs/Day Years Used Date Smoking Tobacco: Never Assessed Comments Unknown Sex and Gender Information Value Date Recorded Sex Assigned at Not on file 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 Historical Provider CV CARDIAC SERVICES PROCE DURES Final Result * CARDIOLOGY REPORT (05/03/2016) Anatomical Region Laterality Modality Other Narrative 05/03/2016 Ordered by an unspecified provider. us Historical Provider CV CARDIAC SERVICES PROCE DURES Final Result documented in this encounter Visit Diagnoses Not on filedocumented in this encounter Care Teams Garbage Collector Supervisor Relationship Specialty Start Date End Date Asa Farias MD PCP - General 07/20/16 05/09/18 Albaro Hickman PA [address] [place] [address] PCP - General Physician Family And Consumer Sciences Professor 05/10/18 10/07/22 Crow Bernardo MD [address] [address] PCP - General Internal Medicine 10/08/22 08/11/23 Rupert Stevens DO [address] [address] PCP - General Internal Medicine 08/12/23 01/17/24 Maria Fernanda Wilde MD [address] [facility] [address] [place] [address] PCP - General Family Medicine 01/18/24 05/20/24 Maria Fernanda Wilde MD [address] [address] PCP - General Family Medicine 05/21/24 Rach Hayes MD [address] [place] [address] [facility] [address] Consulting Physician Pain Management 05/05/21 Neeta Rodriguez NP [address] [place] [address] [address] Referring Physician Orthopedic Surgery 05/22/21 Guru Florez MD PhD [address] [place] [address] [address] Referring Physician Cardiology 08/19/22 Yury Sheridan MD [address] [place] [address] [address] Consulting Physician Orthopedic Surgery 09/30/22 Albaro Hickman PA [address] [address] Physician Family And Consumer Sciences Professor Physician Family And Consumer Sciences Professor 10/08/22 Tello Phipps MD [address] [place] [address] [address] Referring Physician Orthopedic Surgery 04/14/23 documented as of this encounter
--- OUTSIDE RECORDS SUMMARY | 2024-05-30 15:24 | XMS_ITS | Encounter Summary ---
Author Organization [facility] Address [address] [place] [address] Phone Care Team Providers Care Chief Juvenile Probation Officer Name Role Phone Asa Farias MD Primary Care Provider [phone] Albaro Hickman Primary Care Provider Rach Hayes MD Unavailable Neeta Rodriguez NP Unavailable +[phone] Guru Florez MD PhD Unavailable +[phone] Yury Sheridan MD Unavailable + [phone] Crow Bernardo MD Primary Care Provider + [phone] Albaro Hickman Unavailable +[phone] Tello Phipps MD Unavailable +[phone] Rupert Stevens DO Primary Care Provider +[phone] Maria Fernanda Wilde MD Primary Care Provider + [phone] Maria Fernanda Wilde MD Primary Care Provider Encounter Details Date Type Department Care Team (Late st Contact Info) Description 12/18/2014 Orders Only [facility] Provider, MD Luis [facility] [place] [address] Social History Tobacco Use Types Packs/Day Years Used Date Smoking Tobacco: Never Assessed Comments Unknown Sex and Gender Information Value Date Recorded Sex Assigned at Not on file 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 [facility] Provider CV CARDIAC SERVICES PROCE DURES Final Result * CARDIOLOGY REPORT (12/18/2014) Anatomical Region Laterality Modality Other Narrative 12/18/2014 Ordered by an unspecified provider. us Historical Provider CV CARDIAC SERVICES PROCE DURES Final Result documented in this encounter Visit Diagnoses Not on filedocumented in this encounter Care Teams Chief Juvenile Probation Officer Relationship Specialty Start Date End Date Asa Farias MD PCP - General 07/20/16 05/09/18 Albaro Hickman PA [address] [place] [address] PCP - General Physician Shift Supervisor Film Processing 05/10/18 10/07/22 Crow Bernardo MD [address] [address] PCP - General Internal Medicine 10/08/22 08/11/23 Rupert Stevens DO [address] [address] PCP - General Internal Medicine 08/12/23 01/17/24 Maria Fernanda Wilde MD [address] [facility] [address] [place] [address] PCP - General Family Medicine 01/18/24 05/20/24 Maria Fernanda Wilde MD [address] [address] PCP - General Family Medicine 05/21/24 Rach Hayes MD [address] [place] [address] [facility] [address] Consulting Physician Pain Management 05/05/21 Neeta Rodriguez NP [address] [place] [address] [address] Referring Physician Orthopedic Surgery 05/22/21 Guru Florez MD PhD [address] [place] [address] [address] Referring Physician Cardiology 08/19/22 Yury Sheridan MD [address] [place] [address] [address] Consulting Physician Orthopedic Surgery 09/30/22 Albaro Hickman PA [address] [address] Physician Shift Supervisor Film Processing Physician Shift Supervisor Film Processing 10/08/22 Tello Phipps MD [address] [place] [address] [address] Referring Physician Orthopedic Surgery 04/14/23 documented as of this encounter
--- OUTSIDE RECORDS SUMMARY | 2024-05-30 15:24 | XMS_ITS | Encounter Summary ---
Author Organization [facility] Address [address] [place] [address] Phone Care Team Providers Care Gas Booster Engineer Name Role Phone Asa Farias MD Primary Care Provider [phone] Albaro Hickman Primary Care Provider Rach Hayes MD Unavailable Neeta Rodriguez NP Unavailable +[phone] Guru Florez MD PhD Unavailable +[phone] Yury Sheridan MD Unavailable + [phone] Crow Bernardo MD Primary Care Provider + [phone] Albaro Hickman Unavailable +[phone] Tello Phipps MD Unavailable +[phone] Rupert Stevens DO Primary Care Provider +[phone] Maria Fernanda Wilde MD Primary Care Provider + [phone] Maria Fernanda Wilde MD Primary Care Provider Encounter Details Date Type Department Care Team (Late st Contact Info) Description 04/15/2016 Orders Only [facility] Provider, MD Luis [facility] [place] [address] Social History Tobacco Use Types Packs/Day Years Used Date Smoking Tobacco: Never Assessed Comments Unknown Sex and Gender Information Value Date Recorded Sex Assigned at Not on file 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 [facility] Provider CV CARDIAC SERVICES PROCE DURES Final Result * CARDIOLOGY REPORT (04/15/2016) Anatomical Region Laterality Modality Other Narrative 04/15/2016 Ordered by an unspecified provider. us Historical Provider CV CARDIAC SERVICES PROCE DURES Final Result documented in this encounter Visit Diagnoses Not on filedocumented in this encounter Care Teams Gas Booster Engineer Relationship Specialty Start Date End Date Asa Farias MD PCP - General 07/20/16 05/09/18 Albaro Hickman PA [address] [place] [address] PCP - General Physician Substance Abuse Prevention Coordinator 05/10/18 10/07/22 Crow Bernardo MD [address] [address] PCP - General Internal Medicine 10/08/22 08/11/23 Rupert Stevens DO [address] [address] PCP - General Internal Medicine 08/12/23 01/17/24 Maria Fernanda Wilde MD [address] [facility] [address] [place] [address] PCP - General Family Medicine 01/18/24 05/20/24 Maria Fernanda Wilde MD [address] [address] PCP - General Family Medicine 05/21/24 Rach Hayes MD [address] [place] [address] [facility] [address] Consulting Physician Pain Management 05/05/21 Neeta Rodriguez NP [address] [place] [address] [address] Referring Physician Orthopedic Surgery 05/22/21 Guru Florez MD PhD [address] [place] [address] [address] Referring Physician Cardiology 08/19/22 Yury Sheridan MD [address] [place] [address] [address] Consulting Physician Orthopedic Surgery 09/30/22 Albaro Hickman PA [address] [address] Physician Substance Abuse Prevention Coordinator Physician Substance Abuse Prevention Coordinator 10/08/22 Tello Phipps MD [address] [place] [address] [address] Referring Physician Orthopedic Surgery 04/14/23 documented as of this encounter
--- OUTSIDE RECORDS SUMMARY | 2024-05-30 15:24 | XMS_ITS | Encounter Summary ---
Author Organization [facility] Address [address] [place] [address] Phone Care Team Providers Care Inhalation Therapy Aide Name Role Phone Asa Farias MD Primary Care Provider [phone] Albaro Hickman Primary Care Provider Rach Hayes MD Unavailable Neeta Rodriguez NP Unavailable +[phone] Guru Florez MD PhD Unavailable +[phone] Yury Sheridan MD Unavailable + [phone] Crow Bernardo MD Primary Care Provider + [phone] Albaro Hickman Unavailable +[phone] Tello Phipps MD Unavailable +[phone] Rupert Stevens DO Primary Care Provider [phone] Maria Fernanda Wilde MD Primary Care Provider + [phone] Maria Fernanda Wilde MD Primary Care Provider Encounter Details Date Type Department Care Team (Late st Contact Info) Description 08/04/2014 Orders Only [facility] Provider, MD Luis [facility] [place] [address] Social History Tobacco Use Types Packs/Day Years Used Date Smoking Tobacco: Never Assessed Comments Unknown Sex and Gender Information Value Date Recorded Sex Assigned at Not on file 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 [facility] Provider CV CARDIAC SERVICES PROCE DURES Final Result * CARDIOLOGY REPORT (08/04/2014) Anatomical Region Laterality Modality Other Narrative 08/04/2014 Ordered by an unspecified provider. us Historical Provider CV CARDIAC SERVICES PROCE DURES Final Result documented in this encounter Visit Diagnoses Not on filedocumented in this encounter Care Teams Inhalation Therapy Aide Relationship Specialty Start Date End Date Asa Farias MD PCP - General 07/20/16 05/09/18 Albaro Hickman PA [address] [place] [address] PCP - General Physician Safety Person 05/10/18 10/07/22 Crow Bernardo MD [address] [address] PCP - General Internal Medicine 10/08/22 08/11/23 Rupert Stevens DO [address] [address] PCP - General Internal Medicine 08/12/23 01/17/24 Maria Fernanda Wilde MD 47[address] [facility] [address] [place] [address] PCP - General Family Medicine 01/18/24 05/20/24 Maria Fernanda Wilde MD [address] [address] PCP - General Family Medicine 05/21/24 Rach Hayes MD [address] [place] [address] [facility] [address] Consulting Physician Pain Management 05/05/21 Neeta Rodriguez NP [address] [place] [address] [address] Referring Physician Orthopedic Surgery 05/22/21 Guru Florez MD PhD [address] [place] [address] [address] Referring Physician Cardiology 08/19/22 Yury Sheridan MD [address] [place] [address] [address] Consulting Physician Orthopedic Surgery 09/30/22 Albaro Hickman PA [address] [address] Physician Safety Person Physician Safety Person 10/08/22 Tello Phipps MD [address] [place] [address] [address] Referring Physician Orthopedic Surgery 04/14/23 documented as of this encounter
--- OUTSIDE RECORDS SUMMARY | 2024-05-30 15:24 | XMS_ITS | Encounter Summary ---
Author Organization [facility] Address [address] [place] [address] Phone Care Team Providers Care Filer Repairer Name Role Phone Asa Farias MD Primary Care Provider [phone] Albaro Hickman Primary Care Provider Rach Hayes MD Unavailable Neeta Rodriguez NP Unavailable +[phone] Guru Florez MD PhD Unavailable +[phone] Yury Sheridan MD Unavailable + [phone] Crow Bernardo MD Primary Care Provider + [phone] Albaro Hickman Unavailable +[phone] Tello Phipps MD Unavailable +[phone] Rupert Stevens DO Primary Care Provider [phone] Maria Fernanda Wilde MD Primary Care Provider + [phone] Maria Fernanda Wilde MD Primary Care Provider Encounter Details Date Type Department Care Team (Late st Contact Info) Description 09/11/2013 Orders Only [facility] Provider, MD Luis [facility] [place] [address] Social History Tobacco Use Types Packs/Day Years Used Date Smoking Tobacco: Never Assessed Comments Unknown Sex and Gender Information Value Date Recorded Sex Assigned at Not on file 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 us Historical Provider CV CARDIAC SERVICES CONNOR MANUEL Final Result documented in this encounter Visit Diagnoses Not on filedocumented in this encounter Care Teams Filer Repairer Relationship Specialty Start Date End Date Asa Farias MD PCP - General 07/20/16 05/09/18 Albaro Hickman PA [address] [address] PCP - General Physician Alternative Energy Engineer 05/10/18 10/07/22 Crow Bernardo MD [address] [address] PCP - General Internal Medicine 10/08/22 08/11/23 Rupert Stevens DO [address] [place] [address] [address] [place] [address] PCP - General Internal Medicine 08/12/23 01/17/24 Maria Fernanda Wilde MD [address] [facility] [address] [place] [address] PCP - General Family Medicine 01/18/24 05/20/24 Maria Fernanda Wilde MD [address] [address] PCP - General Family Medicine 05/21/24 Rach Hayes MD [facility], [address] [address] Consulting Physician Pain Management 05/05/21 Neeta Rodriguez NP [address] [place] [address] [address] [place] [address] Referring Physician Orthopedic Surgery 05/22/21 Guru Florez MD PhD [address] [place] [address] [address] [place] [address] Referring Physician Cardiology 08/19/22 Yury Sheridan MD [address] [place] [address] [address] [place] [address] Consulting Physician Orthopedic Surgery 09/30/22 Albaro Hickman PA [address] [address] Physician Alternative Energy Engineer Physician Alternative Energy Engineer 10/08/22 Tello Phipps MD [address] [place] [address] [address] [place] [address] Referring Physician Orthopedic Surgery 04/14/23 documented as of this encounter
--- OUTSIDE RECORDS SUMMARY | 2024-05-30 15:24 | XMS_ITS | Encounter Summary ---
Author Organization [facility] Address [address] [place] [address] Phone Care Team Providers Care Control And Recovery Combat Rescue Name Role Phone Asa Farias MD Primary Care Provider [phone] Albaro Hickman Primary Care Provider Rach Hayes MD Unavailable Neeta Rodriguez NP Unavailable +[phone] Guru Florez MD PhD Unavailable +[phone] Yury Sheridan MD Unavailable + [phone] Crow Bernardo MD Primary Care Provider + [phone] Albaro Hickman Unavailable +[phone] Tello Phipps MD Unavailable +[phone] Rupert Stevens DO Primary Care Provider +[phone] Maria Fernanda Wilde MD Primary Care Provider + [phone] Maria Fernanda Wilde MD Primary Care Provider Encounter Details Date Type Department Care Team (Late st Contact Info) Description 06/27/2014 Orders Only [facility] Provider, MD Luis [facility] [place] [place] [address] Social History Tobacco Use Types Packs/Day Years Used Date Smoking Tobacco: Never Assessed Comments Unknown Sex and Gender Information Value Date Recorded Sex Assigned at Not on file Legal Sex Female 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 us Historical Provider CV CARDIAC SERVICES CONNOR MANUEL Final Result documented in this encounter Visit Diagnoses Not on filedocumented in this encounter Care Teams Control And Recovery Combat Rescue Relationship Specialty Start Date End Date Asa Farias MD PCP - General 07/20/16 05/09/18 Albaro Hickman PA [address] [address] PCP - General Physician Bark Spudder 05/10/18 10/07/22 Crow Bernardo MD [address] [address] PCP - General Internal Medicine 10/08/22 08/11/23 Rupert Stevens DO [address] [place] [address] [address] [place] [address] PCP - General Internal Medicine 08/12/23 01/17/24 Maria Fernanda Wilde MD [address] [facility] [address] [place] [address] PCP - General Family Medicine 01/18/24 05/20/24 Maria Fernanda Wilde MD [address] [address] PCP - General Family Medicine 05/21/24 Rach Hayes MD [facility], [address] [address] Consulting Physician Pain Management 05/05/21 Neeta Rodriguez NP [address] [place] [address] [address] [place] [address] Referring Physician Orthopedic Surgery 05/22/21 Guru Florez MD PhD [address] [place] [address] [address] [place] [address] Referring Physician Cardiology 08/19/22 Yury Sheridan MD [address] [place] [address] [address] [place] [address] Consulting Physician Orthopedic Surgery 09/30/22 Albaro Hickman PA [address] [address] Physician Bark Spudder Physician Bark Spudder 10/08/22 Tello Phipps MD [address] [place] [address] [address] [place] [address] Referring Physician Orthopedic Surgery 04/14/23 documented as of this encounter
--- OUTSIDE RECORDS SUMMARY | 2024-05-30 15:24 | XMS_ITS | Encounter Summary ---
Author Organization [facility] Address [address] [place] [address] Phone Care Team Providers Care Principal Clerk Name Role Phone Asa Farias MD Primary Care Provider [phone] Albaro Hickman Primary Care Provider Rach Hayes MD Unavailable Neeta Rodriguez NP Unavailable +[phone] Guru Florez MD PhD Unavailable +[phone] Yury Sheridan MD Unavailable + [phone] Crow Bernardo MD Primary Care Provider + [phone] Albaro Hickman Unavailable +[phone] Tello Phipps MD Unavailable +[phone] Rupert Stevens DO Primary Care Provider +[phone] Maria Fernanda Wilde MD Primary Care Provider + [phone] Maria Fernanda Wilde MD Primary Care Provider Encounter Details Date Type Department Care Team (Late st Contact Info) Description 05/01/2014 Orders Only [facility] Provider, MD Luis [facility] [place] [address] Social History Tobacco Use Types Packs/Day Years Used Date Smoking Tobacco: Never Assessed Comments Unknown Sex and Gender Information Value Date Recorded Sex Assigned at Not on file 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 us Historical Provider [facility] CONNOR MANUEL Final Result documented in this encounter Visit Diagnoses Not on filedocumented in this encounter Care Teams Principal Clerk Relationship Specialty Start Date End Date Asa Farias MD PCP - General 07/20/16 05/09/18 Albaro Hickman PA [address] [address] PCP - General Physician Retention Specialist 05/10/18 10/07/22 Crow Bernardo MD [address] [address] PCP - General Internal Medicine 10/08/22 08/11/23 Rupert Stevens DO [address] [place] [address] [address] [place] [address] PCP - General Internal Medicine 08/12/23 01/17/24 Maria Fernanda Wilde MD [address] [facility] [address] [place] [address] PCP - General Family Medicine 01/18/24 05/20/24 Maria Fernanda Wilde MD [address] [address] PCP - General Family Medicine 05/21/24 Rach Hayes MD [facility], [address] [address] Consulting Physician Pain Management 05/05/21 Neeta Rodriguez NP [address] [place] [address] [address] [place] [address] Referring Physician Orthopedic Surgery 05/22/21 Guru Florez MD PhD [address] [place] [address] [address] [place] [address] Referring Physician Cardiology 08/19/22 Yury Sheridan MD [address] [place] [address] [address] [place] [address] Consulting Physician Orthopedic Surgery 09/30/22 Albaro Hickman PA [address] [address] Physician Retention Specialist Physician Retention Specialist 10/08/22 Tello Phipps MD [address] [place] [address] [address] [place] [address] Referring Physician Orthopedic Surgery 04/14/23 documented as of this encounter
--- OUTSIDE RECORDS SUMMARY | 2024-05-30 15:24 | XMS_ITS | Encounter Summary ---
Author Organization [facility] Address [address] [place] [address] Phone Care Team Providers Care Home Health Clinician Name Role Phone Asa Farias MD Primary Care Provider [phone] Albaro Hickman Primary Care Provider Rach Hayes MD Unavailable Neeta Rodriguez NP Unavailable [phone] Guru Florez MD PhD Unavailable +[phone] Yury Sheridan MD Unavailable + [phone] Crow Bernardo MD Primary Care Provider + [phone] Albaro Hickman Unavailable +[phone] Tello Phipps MD Unavailable +[phone] Rupert Stevens DO Primary Care Provider +[phone] Maria Fernanda Wilde MD Primary Care Provider + [phone] Maria Fernanda Wilde MD Primary Care Provider Encounter Details Date Type Department Care Team (Late st Contact Info) Description 08/23/2015 Orders Only [facility] Provider, MD Luis [facility] [place] [address] Social History Tobacco Use Types Packs/Day Years Used Date Smoking Tobacco: Never Assessed Comments Unknown Sex and Gender Information Value Date Recorded Sex Assigned at Not on file 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 [facility] Provider CV CARDIAC SERVICES PROCE DURES Final Result * CARDIOLOGY REPORT (08/23/2015) Anatomical Region Laterality Modality Other Narrative 08/23/2015 Ordered by an unspecified provider. us Historical Provider CV CARDIAC SERVICES PROCE DURES Final Result documented in this encounter Visit Diagnoses Not on filedocumented in this encounter Care Teams Home Health Clinician Relationship Specialty Start Date End Date Asa Farias MD PCP - General 07/20/16 05/09/18 Albaro Hickman PA [address] [place] [address] PCP - General Physician Migration Agent 05/10/18 10/07/22 Crow Bernardo MD [address] [address] PCP - General Internal Medicine 10/08/22 08/11/23 Rupert Stevens DO [address] [address] PCP - General Internal Medicine 08/12/23 01/17/24 Maria Fernanda Wilde MD [address] [facility] [address] [place] [address] PCP - General Family Medicine 01/18/24 05/20/24 Maria Fernanda Wilde MD [address] [address] PCP - General Family Medicine 05/21/24 Rach Hayes MD [address] [place] [address] [facility] [address] Consulting Physician Pain Management 05/05/21 Neeta Rodriguez NP [address] [place] [address] [address] Referring Physician Orthopedic Surgery 05/22/21 Guru Florez MD PhD [address] [place] [address] [address] Referring Physician Cardiology 08/19/22 Yury Sheridan MD [address] [place] [address] [address] Consulting Physician Orthopedic Surgery 09/30/22 Albaro Hickman PA [address] [address] Physician Migration Agent Physician Migration Agent 10/08/22 Tello Phipps MD [address] [place] [address] [address] Referring Physician Orthopedic Surgery 04/14/23 documented as of this encounter
--- OUTSIDE RECORDS SUMMARY | 2024-05-30 15:24 | XMS_ITS | Encounter Summary ---
Author Organization [facility] Address [address] [place] [address] Phone Care Team Providers Care Seo Consultant Name Role Phone Asa Farias MD Primary Care Provider [phone] Albaro Hickman Primary Care Provider Rach Hayes MD Unavailable Neeta Rodriguez NP Unavailable [phone] Guru Florez MD PhD Unavailable +[phone] Yury Sheridan MD Unavailable + [phone] Crow Bernardo MD Primary Care Provider + [phone] Albaro Hickman Unavailable +[phone] Tello Phipps MD Unavailable +[phone] Rupert Stevens DO Primary Care Provider +[phone] Maria Fernanda Wilde MD Primary Care Provider + [phone] Maria Fernanda Wilde MD Primary Care Provider Encounter Details Date Type Department Care Team (Late st Contact Info) Description 09/21/2015 Orders Only [facility] Provider, MD Luis [facility] [place] [address] Social History Tobacco Use Types Packs/Day Years Used Date Smoking Tobacco: Never Assessed Comments Unknown Sex and Gender Information Value Date Recorded Sex Assigned at Not on file 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 Historical Provider CV CARDIAC SERVICES PROCE DURES Final Result * CARDIOLOGY REPORT (09/21/2015) Anatomical Region Laterality Modality Other Narrative 09/21/2015 Ordered by an unspecified provider. us Historical Provider CV CARDIAC SERVICES PROCE DURES Final Result documented in this encounter Visit Diagnoses Not on filedocumented in this encounter Care Teams Seo Consultant Relationship Specialty Start Date End Date Asa Farias MD PCP - General 07/20/16 05/09/18 Albaro Hickman PA [address] [place] [address] PCP - General Physician Press Breaker 05/10/18 10/07/22 Crow Bernardo MD [address] [address] PCP - General Internal Medicine 10/08/22 08/11/23 Rupert Stevens DO [address] [address] PCP - General Internal Medicine 08/12/23 01/17/24 Maria Fernanda Wilde MD [address] [facility] [address] [place] [address] PCP - General Family Medicine 01/18/24 05/20/24 Maria Fernanda Wilde MD [address] [address] PCP - General Family Medicine 05/21/24 Rach Hayes MD [address] [place] [address] [facility] [address] Consulting Physician Pain Management 05/05/21 Neeta Rodriguez NP [address] [place] [address] [address] Referring Physician Orthopedic Surgery 05/22/21 Guru Florez MD PhD [address] [place] [address] [address] Referring Physician Cardiology 08/19/22 Yury Sheridan MD [address] [place] [address] [address] Consulting Physician Orthopedic Surgery 09/30/22 Albaro Hickman PA [address] [address] Physician Press Breaker Physician Press Breaker 10/08/22 Tello Phipps MD [address] [place] [address] [address] Referring Physician Orthopedic Surgery 04/14/23 documented as of this encounter
--- OUTSIDE RECORDS SUMMARY | 2024-05-30 15:24 | XMS_ITS | Encounter Summary ---
Author Organization [facility] Address [address] [place] [address] Phone Care Team Providers Care Access Coordinator Name Role Phone Asa Farias MD Primary Care Provider [phone] Albaro Hickman Primary Care Provider Rach Hayes MD Unavailable Neeta Rodriguez NP Unavailable +[phone] Guru Florez MD PhD Unavailable +[phone] Yury Sheridan MD Unavailable + [phone] Crow Bernardo MD Primary Care Provider + [phone] Albaro Hickman Unavailable +[phone] Tello Phipps MD Unavailable +[phone] Rupert Stevens DO Primary Care Provider +[phone] Maria Fernanda Wilde MD Primary Care Provider + [phone] Maria Fernanda Wilde MD Primary Care Provider Encounter Details Date Type Department Care Team (Late st Contact Info) Description 06/25/2013 Orders Only [facility] Provider, MD [place] [address] Social History Tobacco Use Types Packs/Day Years Used Date Smoking Tobacco: Never Assessed Comments Unknown Sex and Gender Information Value Date Recorded Sex Assigned at Not on file 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 us Historical Provider CV CARDIAC SERVICES CONNOR MANUEL Final Result documented in this encounter Visit Diagnoses Not on filedocumented in this encounter Care Teams Access Coordinator Relationship Specialty Start Date End Date Asa Farias MD PCP - General 07/20/16 05/09/18 Albaro Hickman PA [address] [address] PCP - General Physician Fabrication Manager 05/10/18 10/07/22 Crow Bernardo MD [address] [address] PCP - General Internal Medicine 10/08/22 08/11/23 Rupert Stevens DO [address] [place] [address] [address] [place] [address] PCP - General Internal Medicine 08/12/23 01/17/24 Maria Fernanda Wilde MD [address] [facility] [address] [place] [address] PCP - General Family Medicine 01/18/24 05/20/24 Maria Fernanda Wilde MD [address] [address] PCP - General Family Medicine 05/21/24 Rach Hayes MD [facility], [address] [address] Consulting Physician Pain Management 05/05/21 Neeta Rodriguez NP [address] [place] [address] [address] [place] [address] Referring Physician Orthopedic Surgery 05/22/21 Guru Florez MD PhD [address] [place] [address] [address] [place] [address] Referring Physician Cardiology 08/19/22 Yury Sheridan MD [address] [place] [address] [address] [place] [address] Consulting Physician Orthopedic Surgery 09/30/22 Albaro Hickman PA [address] [address] Physician Fabrication Manager Physician Fabrication Manager 10/08/22 Tello Phipps MD [address] [place] [address] [address] [place] [address] Referring Physician Orthopedic Surgery 04/14/23 documented as of this encounter
--- OUTSIDE RECORDS SUMMARY | 2024-05-30 15:24 | XMS_ITS | Encounter Summary ---
Author Organization [facility] Address [address] [place] [address] Phone Care Team Providers Care Battery Assembler Dry Cell Name Role Phone Asa Farias MD Primary Care Provider [phone] Albaro Hickman Primary Care Provider Rach Hayes MD Unavailable Neeta Rodriguez NP Unavailable +[phone] Guru Florez MD PhD Unavailable [phone] Yury Sheridan MD Unavailable + [phone] Crow Bernardo MD Primary Care Provider + [phone] Albaro Hickman Unavailable +[phone] Tello Phipps MD Unavailable +[phone] Rupert Stevens DO Primary Care Provider [phone] Maria Fernanda Wilde MD Primary Care Provider + [phone] Maria Fernanda Wilde MD Primary Care Provider Encounter Details Date Type Department Care Team (Late st Contact Info) Description 10/28/2013 Orders Only [facility] Provider, MD Luis [facility] [place] [address] Social History Tobacco Use Types Packs/Day Years Used Date Smoking Tobacco: Never Assessed Comments Unknown Sex and Gender Information Value Date Recorded Sex Assigned at Not on file Legal Sex Female 4:[address] TECH Gender Identity Female 07/15/2022 2:23 PM CDT Sexual Orientation Choose not to disclose 2023 12:05 PM CDT documented as of this encounter Plan of Treatment Not on file documented as of this encounter Procedures Procedure Name Priority Date/Time Associated Diagnosis Comments CARDIOLOGY REPORT 10/28/2013 documented in this encounter Results * CARDIOLOGY REPORT (10/28/2013) Anatomical Region Laterality Modality Other Narrative 10/28/2013 Ordered by an unspecified provider. us Historical Provider CV CARDIAC SERVICES CONNOR MANUEL Final Result documented in this encounter Visit Diagnoses Not on filedocumented in this encounter Care Teams Battery Assembler Dry Cell Relationship Specialty Start Date End Date Asa Farias MD PCP - General 07/20/16 05/09/18 Albaro Hickman PA [address] [address] PCP - General Physician Electric Meter Technician 05/10/18 10/07/22 Crow Bernardo MD [address] [address] PCP - General Internal Medicine 10/08/22 08/11/23 Rupert Stevens DO [address] [place] [address] [address] [place] [address] PCP - General Internal Medicine 08/12/23 01/17/24 Maria Fernanda Wilde MD [address] [facility] [address] [place] [address] PCP - General Family Medicine 01/18/24 05/20/24 Maria Fernanda Wilde MD [address] [address] PCP - General Family Medicine 05/21/24 Rach Hayes MD [facility], [address] [address] Consulting Physician Pain Management 05/05/21 Neeta Rodriguez NP [address] [place] [address] [address] [place] [address] Referring Physician Orthopedic Surgery 05/22/21 Guru Florez MD PhD [address] [place] [address] [address] [place] [address] Referring Physician Cardiology 08/19/22 Yury Sheridan MD [address] [place] [address] [address] [place] [address] Consulting Physician Orthopedic Surgery 09/30/22 Albaro Hickman PA [address] [address] Physician Electric Meter Technician Physician Electric Meter Technician 10/08/22 Tello Phipps MD [address] [place] [address] [address] [place] [address] Referring Physician Orthopedic Surgery 04/14/23 documented as of this encounter
--- OUTSIDE RECORDS SUMMARY | 2024-05-30 15:24 | XMS_ITS | Encounter Summary ---
Author Organization [facility] Address [address] [place] [address] Phone Care Team Providers Care Adzing And Boring Machine Helper Name Role Phone Asa Farias MD Primary Care Provider [phone] Albaro Hickman Primary Care Provider Rach Hayes MD Unavailable Neeta Rodriguez NP Unavailable [phone] Guru Florez MD PhD Unavailable +[phone] Yury Sheridan MD Unavailable + [phone] Crow Bernardo MD Primary Care Provider + [phone] Albaro Hickman Unavailable +[phone] Tello Phipps MD Unavailable +[phone] Rupert Stevens DO Primary Care Provider +[phone] Maria Fernanda Wilde MD Primary Care Provider + [phone] Maria Fernanda Wilde MD Primary Care Provider Encounter Details Date Type Department Care Team (Late st Contact Info) Description 12/07/2013 Orders Only [facility] Provider, MD Luis [facility] [place] [address] Social History Tobacco Use Types Packs/Day Years Used Date Smoking Tobacco: Never Assessed Comments Unknown Sex and Gender Information Value Date Recorded Sex Assigned at Not on file 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 us Historical Provider CV CARDIAC SERVICES CONNOR MANUEL Final Result documented in this encounter Visit Diagnoses Not on filedocumented in this encounter Care Teams Adzing And Boring Machine Helper Relationship Specialty Start Date End Date Asa Farias MD PCP - General 07/20/16 05/09/18 Albaro Hickman PA [address] [address] PCP - General Physician Inspector Repairer 05/10/18 10/07/22 Crow Bernardo MD [address] [address] PCP - General Internal Medicine 10/08/22 08/11/23 Rupert Stevens DO [address] [place] [address] [address] [place] [address] PCP - General Internal Medicine 08/12/23 01/17/24 Maria Fernanda Wilde MD [address] [facility] [address] [place] [address] PCP - General Family Medicine 01/18/24 05/20/24 Maria Fernanda Wilde MD [address] [address] PCP - General Family Medicine 05/21/24 Rach Hayes MD [facility], [address] [address] Consulting Physician Pain Management 05/05/21 Neeta Rodriguez NP [address] [place] [address] [address] [place] [address] Referring Physician Orthopedic Surgery 05/22/21 Guru Florez MD PhD [address] [place] [address] [address] [place] [address] Referring Physician Cardiology 08/19/22 Yury Sheridan MD [address] [place] [address] [address] [place] [address] Consulting Physician Orthopedic Surgery 09/30/22 Albaro Hickman PA [address] [address] Physician Inspector Repairer Physician Inspector Repairer 10/08/22 Tello Phipps MD [address] [place] [address] [address] [place] [address] Referring Physician Orthopedic Surgery 04/14/23 documented as of this encounter
--- OUTSIDE RECORDS SUMMARY | 2024-05-30 15:24 | XMS_ITS | Encounter Summary ---
Author Organization [facility] Address [address] [place] [address] Phone Care Team Providers Care Silverware Assembler Name Role Phone Asa Farias MD Primary Care Provider [phone] Albaro Hickman Primary Care Provider Rach Hayes MD Unavailable Neeta Rodriguez NP Unavailable +[phone] Guru Florez MD PhD Unavailable +[phone] Yury Sheridan MD Unavailable + [phone] Crow Bernardo MD Primary Care Provider + [phone] Albaro Hickman Unavailable +[phone] Tello Phipps MD Unavailable +[phone] Rupert Stevens DO Primary Care Provider +[phone] Maria Fernanda Wilde MD Primary Care Provider + [phone] Maria Fernanda Wilde MD Primary Care Provider Encounter Details Date Type Department Care Team (Late st Contact Info) Description 09/04/2014 Orders Only [facility] Provider, MD Luis [facility] [place] [address] Social History Tobacco Use Types Packs/Day Years Used Date Smoking Tobacco: Never Assessed Comments Unknown Sex and Gender Information Value Date Recorded Sex Assigned at Not on file 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 us Historical Provider CV CARDIAC [facility] CONNOR MANUEL Final Result documented in this encounter Visit Diagnoses Not on filedocumented in this encounter Care Teams Silverware Assembler Relationship Specialty Start Date End Date Asa Farias MD PCP - General 07/20/16 05/09/18 Albaro Hickman PA [address] [address] PCP - General Physician Process Chemist 05/10/18 10/07/22 Crow Bernardo MD [address] [address] PCP - General Internal Medicine 10/08/22 08/11/23 Rupert Stevens DO [address] [place] [address] [address] [place] [address] PCP - General Internal Medicine 08/12/23 01/17/24 Maria Fernanda Wilde MD [address] [facility] [address] [place] [address] PCP - General Family Medicine 01/18/24 05/20/24 Maria Fernanda Wilde MD [address] [address] PCP - General Family Medicine 05/21/24 Rach Hayes MD [facility], [address] [address] Consulting Physician Pain Management 05/05/21 Neeta Rodriguez NP [address] [place] [address] [address] [place] [address] Referring Physician Orthopedic Surgery 05/22/21 Guru Florez MD PhD [address] [place] [address] [address] [place] [address] Referring Physician Cardiology 08/19/22 Yury Sheridan MD [address] [place] [address] [address] [place] [address] Consulting Physician Orthopedic Surgery 09/30/22 Albaro Hickman PA [address] [address] Physician Process Chemist Physician Process Chemist 10/08/22 Tello Phipps MD [address] [place] [address] DR [address] [place] [address] Referring Physician Orthopedic Surgery 04/14/23 documented as of this encounter
--- OUTSIDE RECORDS SUMMARY | 2024-05-30 15:24 | XMS_ITS | Encounter Summary ---
Author Organization [facility] Address [address] [place] [address] Phone Care Team Providers Care College Or University Registrar Name Role Phone Asa Farias MD Primary Care Provider [phone] Albaro Hickman Primary Care Provider Rach Hayes MD Unavailable Neeta Rodriguez NP Unavailable +[phone] Guru Florez MD PhD Unavailable +[phone] Yury Sheridan MD Unavailable + [phone] Crow Bernardo MD Primary Care Provider + [phone] Albaro Hickman Unavailable +[phone] Tello Phipps MD Unavailable +[phone] Rupert Stevens DO Primary Care Provider [phone] Maria Fernanda Wilde MD Primary Care Provider + [phone] Maria Fernanda Wilde MD Primary Care Provider Encounter Details Date Type Department Care Team (Late st Contact Info) Description 12/08/2014 Orders Only [facility] Provider, MD [place] [address] Social History Tobacco Use Types Packs/Day Years Used Date Smoking Tobacco: Never Assessed Comments Unknown Sex and Gender Information Value Date Recorded Sex Assigned at Not on file 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 [facility] Provider CV CARDIAC SERVICES PROCE DURES Final Result * CARDIOLOGY REPORT (12/08/2014) Anatomical Region Laterality Modality Other Narrative 12/08/2014 Ordered by an unspecified provider. us Historical Provider CV CARDIAC SERVICES PROCE DURES Final Result documented in this encounter Visit Diagnoses Not on filedocumented in this encounter Care Teams College Or University Registrar Relationship Specialty Start Date End Date Asa Farias MD PCP - General 07/20/16 05/09/18 Albaro Hickman PA [address] [place] [address] PCP - General Physician Cattle Sorter 05/10/18 10/07/22 Crow Bernardo MD [address] [address] PCP - General Internal Medicine 10/08/22 08/11/23 Rupert Stevens DO [address] [address] PCP - General Internal Medicine 08/12/23 01/17/24 Maria Fernanda Wilde MD [address] [facility] [address] [place] [address] PCP - General Family Medicine 01/18/24 05/20/24 Maria Fernanda iWlde MD [address] [address] PCP - General Family Medicine 05/21/24 Rach Hayes MD [address] [place] [address] [facility] [address] Consulting Physician Pain Management 05/05/21 Neeta Rodriguez NP [address] [place] [address] [address] Referring Physician Orthopedic Surgery 05/22/21 Guru Florez MD PhD [address] [place] [address] [address] Referring Physician Cardiology 08/19/22 Yury Sheridan MD [address] [place] [address] [address] Consulting Physician Orthopedic Surgery 09/30/22 Albaro Hickman PA [address] [address] Physician Cattle Sorter Physician Cattle Sorter 10/08/22 Tello Phipps MD [address] [place] [address] [address] Referring Physician Orthopedic Surgery 04/14/23 documented as of this encounter
--- OUTSIDE RECORDS SUMMARY | 2024-05-30 15:24 | XMS_ITS | Encounter Summary ---
Author Organization [facility] Address [address] [place] [address] Phone Care Team Providers Care Coil Spring Assembler Name Role Phone Asa Farias MD Primary Care Provider [phone] Albaro Hickman Primary Care Provider Rach Hayes MD Unavailable Neeta Rodriguez NP Unavailable +[phone] Guru Florez MD PhD Unavailable +[phone] Yury Sheridan MD Unavailable + [phone] Crow Bernardo MD Primary Care Provider + [phone] Albaro Hickman Unavailable +[phone] Tello Phipps MD Unavailable +[phone] Rupert Stevens DO Primary Care Provider [phone] Maria Fernanda Wilde MD Primary Care Provider + [phone] Maria Fernanda Wilde MD Primary Care Provider Encounter Details Date Type Department Care Team (Late st Contact Info) Description 03/01/2014 Orders Only [facility] Provider, MD Luis [facility] [place] [address] Social History Tobacco Use Types Packs/Day Years Used Date Smoking Tobacco: Never Assessed Comments Unknown Sex and Gender Information Value Date Recorded Sex Assigned at Not on file 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 us Historical Provider CV CARDIAC SERVICES CONNOR MANUEL Final Result documented in this encounter Visit Diagnoses Not on filedocumented in this encounter Care Teams Coil Spring Assembler Relationship Specialty Start Date End Date Asa Farias MD PCP - General 07/20/16 05/09/18 Albaro Hickman PA [address] [address] PCP - General Physician Technical Translator 05/10/18 10/07/22 Crow Bernardo MD [address] [address] PCP - General Internal Medicine 10/08/22 08/11/23 Rupert Stevens DO [address] [place] [address] [address] [place] [address] PCP - General Internal Medicine 08/12/23 01/17/24 Maria Fernanda Wilde MD [address] [facility] [address] [place] [address] PCP - General Family Medicine 01/18/24 05/20/24 Maria Fernanda Wilde MD [address] [address] PCP - General Family Medicine 05/21/24 Rach Hayes MD [facility], [address] [address] Consulting Physician Pain Management 05/05/21 Neeta Rodriguez NP [address] [place] [address] [address] [place] [address] Referring Physician Orthopedic Surgery 05/22/21 Guru Florez MD PhD [address] [place] [address] [address] [place] [address] Referring Physician Cardiology 08/19/22 Yury Sheridan MD [address] [place] [address] [address] [place] [address] Consulting Physician Orthopedic Surgery 09/30/22 Albaro Hickman PA [address] [address] Physician Technical Translator Physician Technical Translator 10/08/22 Tello Phipps MD [address] [place] [address] [address] [place] [address] Referring Physician Orthopedic Surgery 04/14/23 documented as of this encounter
--- OUTSIDE RECORDS SUMMARY | 2024-05-30 15:24 | XMS_ITS | Encounter Summary ---
Author Organization [facility] Address [address] [place] [address] Phone Care Team Providers Care Emergency Nurse Name Role Phone Asa Farias MD Primary Care Provider [phone] Albaro Hickman Primary Care Provider Rach Hayes MD Unavailable Neeta Rodriguez NP Unavailable +[phone] Guru Florez MD PhD Unavailable +[phone] Yury Sheridan MD Unavailable + [phone] Crow Bernardo MD Primary Care Provider + [phone] Albaro Hickman Unavailable +[phone] Tello Phipps MD Unavailable +[phone] Rupert Stevens DO Primary Care Provider +[phone] Maria Fernanda Wilde MD Primary Care Provider + [phone] Maria Fernanda Wilde MD Primary Care Provider Encounter Details Date Type Department Care Team (Late st Contact Info) Description 06/23/2015 Orders Only [facility] Provider, MD Luis [facility] [address] Social History Tobacco Use Types Packs/Day Years Used Date Smoking Tobacco: Never Assessed Comments Unknown Sex and Gender Information Value Date Recorded Sex Assigned at Not on file 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 [facility] Provider CV CARDIAC SERVICES PROCE DURES Final Result * CARDIOLOGY REPORT (06/23/2015) Anatomical Region Laterality Modality Other Narrative 06/23/2015 Ordered by an unspecified provider. us Historical Provider CV CARDIAC SERVICES PROCE DURES Final Result documented in this encounter Visit Diagnoses Not on filedocumented in this encounter Care Teams Emergency Nurse Relationship Specialty Start Date End Date Asa Farias MD PCP - General 07/20/16 05/09/18 Albaro Hickman PA [address] [place] [address] PCP - General Physician Jeep Mechanic 05/10/18 10/07/22 Crow Bernardo MD [address] [address] PCP - General Internal Medicine 10/08/22 08/11/23 Rupert Stevens DO [address] [address] PCP - General Internal Medicine 08/12/23 01/17/24 Maria Fernanda Wilde MD [address] [facility] [address] [place] [address] PCP - General Family Medicine 01/18/24 05/20/24 Maria Fernanda Wilde MD [address] [address] PCP - General Family Medicine 05/21/24 Rach Hayes MD [address] [place] [address] [facility] [address] Consulting Physician Pain Management 05/05/21 Neeta Rodriguez NP [address] [place] [address] [address] Referring Physician Orthopedic Surgery 05/22/21 Guru Florez MD PhD [address] [place] [address] [address] Referring Physician Cardiology 08/19/22 Yury Sheridan MD [address] [place] [address] [address] Consulting Physician Orthopedic Surgery 09/30/22 Albaro Hickman PA [address] [address] Physician Jeep Mechanic Physician Jeep Mechanic 10/08/22 Tello Phipps MD [address] [place] [address] [address] Referring Physician Orthopedic Surgery 04/14/23 documented as of this encounter
--- OUTSIDE RECORDS SUMMARY | 2024-05-30 15:24 | XMS_ITS | Encounter Summary ---
Author Organization [facility] Address [address] [place] [address] Phone Care Team Providers Care Spinner Hydraulic Name Role Phone Asa Farias MD Primary Care Provider [phone] Albaro Hickman Primary Care Provider Rach Hayes MD Unavailable Neeta Rodriguez NP Unavailable +[phone] Guru Florez MD PhD Unavailable +[phone] Yury Sheridan MD Unavailable + [phone] Crow Bernardo MD Primary Care Provider + [phone] Albaro Hickman Unavailable +[phone] Tello Phipps MD Unavailable +[phone] Rupert Stevens DO Primary Care Provider [phone] Maria Fernanda Wilde MD Primary Care Provider + [phone] Maria Fernanda Wilde MD Primary Care Provider Encounter Details Date Type Department Care Team (Late st Contact Info) Description 09/11/2015 Orders Only [facility] Provider, MD Luis [facility] [place] [address] Social History Tobacco Use Types Packs/Day Years Used Date Smoking Tobacco: Never Assessed Comments Unknown Sex and Gender Information Value Date Recorded Sex Assigned at Not on file 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 [facility] Provider CV CARDIAC SERVICES PROCE DURES Final Result * CARDIOLOGY REPORT (09/11/2015) Anatomical Region Laterality Modality Other Narrative 09/11/2015 Ordered by an unspecified provider. us Historical Provider CV CARDIAC SERVICES PROCE DURES Final Result documented in this encounter Visit Diagnoses Not on filedocumented in this encounter Care Teams Spinner Hydraulic Relationship Specialty Start Date End Date Asa Farias MD PCP - General 07/20/16 05/09/18 Albaro Hickman PA [address] [place] [address] PCP - General Physician Earth Science Technician 05/10/18 10/07/22 Crow Bernardo MD [address] [address] PCP - General Internal Medicine 10/08/22 08/11/23 Rupert Stevens DO [address] [address] PCP - General Internal Medicine 08/12/23 01/17/24 Maria Fernanda Wilde MD [address] [facility] [address] [place] [address] PCP - General Family Medicine 01/18/24 05/20/24 Maria Fernanda Wilde MD [address] [address] PCP - General Family Medicine 05/21/24 Rach Hayes MD [address] [place] [address] [facility] [address] Consulting Physician Pain Management 05/05/21 Neeta Rodriguez NP [address] [place] [address] [address] Referring Physician Orthopedic Surgery 05/22/21 Guru Florez MD PhD [address] [place] [address] [address] Referring Physician Cardiology 08/19/22 Yury Sheridan MD [address] [place] [address] [address] Consulting Physician Orthopedic Surgery 09/30/22 Albaro Hickman PA [address] [address] Physician Earth Science Technician Physician Earth Science Technician 10/08/22 Tello Phipps MD [address] [place] [address] [address] Referring Physician Orthopedic Surgery 04/14/23 documented as of this encounter
--- OUTSIDE RECORDS SUMMARY | 2024-05-30 15:24 | XMS_ITS | Encounter Summary ---
Author Organization [facility] Address [address] [place] [address] Phone Care Team Providers Care General Inspector Name Role Phone Asa Farias MD Primary Care Provider [phone] Albaro Hickman Primary Care Provider Rach Hayes MD Unavailable Neeta Rodriguez NP Unavailable +[phone] Guru Florez MD PhD Unavailable +[phone] Yury Sheridan MD Unavailable + [phone] Crow Bernardo MD Primary Care Provider + [phone] Albaro Hickman Unavailable +[phone] Tello Phipps MD Unavailable +[phone] Rupert Stevens DO Primary Care Provider +[phone] Maria Fernanda Wilde MD Primary Care Provider + [phone] Maria Fernanda Wilde MD Primary Care Provider Encounter Details Date Type Department Care Team (Late st Contact Info) Description 01/30/2014 Orders Only [facility] Provider, MD Luis [facility] [place] [address] Social History Tobacco Use Types Packs/Day Years Used Date Smoking Tobacco: Never Assessed Comments Unknown Sex and Gender Information Value Date Recorded Sex Assigned at Not on file 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 us Historical Provider [facility] Final Result documented in this encounter Visit Diagnoses Not on filedocumented in this encounter Care Teams General Inspector Relationship Specialty Start Date End Date Asa Farias MD PCP - General 07/20/16 05/09/18 Albaro Hickman PA [address] [address] PCP - General Physician Engineering Documentation Specialist 05/10/18 10/07/22 Crow Bernardo MD [address] [address] PCP - General Internal Medicine 10/08/22 08/11/23 Rupert Stevens DO [address] [place] [address] [address] [place] [address] PCP - General Internal Medicine 08/12/23 01/17/24 Maria Fernanda Wilde MD [address] [facility] [address] [place] [address] PCP - General Family Medicine 01/18/24 05/20/24 Maria Fernanda Wilde MD [address] [address] PCP - General Family Medicine 05/21/24 Rach Hayes MD [facility], [address] [address] Consulting Physician Pain Management 05/05/21 Neeta Rodriguez NP [address] [place] [address] [address] [place] [address] Referring Physician Orthopedic Surgery 05/22/21 Guru Florez MD PhD [address] [place] [address] [address] [place] [address] Referring Physician Cardiology 08/19/22 Yury Sheridan MD [address] [place] [address] DR [address] [place] [address] Consulting Physician Orthopedic Surgery 09/30/22 Albaro Hickman PA [address] [address] Physician Engineering Documentation Specialist Physician Engineering Documentation Specialist 10/08/22 Tello Phipps MD [address] [place] [address] [address] [place] [address] Referring Physician Orthopedic Surgery 04/14/23 documented as of this encounter
--- OUTSIDE RECORDS SUMMARY | 2024-05-30 15:24 | XMS_ITS | Encounter Summary ---
Author Organization [facility] Address [address] [place] [address] Phone Care Team Providers Care Fish Receiver Name Role Phone Asa Farias MD Primary Care Provider [phone] Albaro Hickman Primary Care Provider Rach Hayes MD Unavailable Neeta Rodriguez NP Unavailable +[phone] Guru Florez MD PhD Unavailable +[phone] Yury Sheridan MD Unavailable + [phone] Crow Bernardo MD Primary Care Provider + [phone] Albaro Hickman Unavailable +[phone] Tello Phipps MD Unavailable +[phone] Rupert Stevens DO Primary Care Provider +[phone] Maria Fernanda Wilde MD Primary Care Provider + [phone] Maria Fernanda Wilde MD Primary Care Provider Encounter Details Date Type Department Care Team (Late st Contact Info) Description 08/01/2013 Orders Only [facility] Provider, MD Luis [facility] [place] [address] Social History Tobacco Use Types Packs/Day Years Used Date Smoking Tobacco: Never Assessed Comments Unknown Sex and Gender Information Value Date Recorded Sex Assigned at Not on file 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 us Historical Provider [facility] Final Result documented in this encounter Visit Diagnoses Not on filedocumented in this encounter Care Teams Fish Receiver Relationship Specialty Start Date End Date Asa Farias MD PCP - General 07/20/16 05/09/18 Albaro Hickman PA [address] [address] PCP - General Physician Osteopathic Medicine Teacher 05/10/18 10/07/22 Crow Bernardo MD [address] [address] PCP - General Internal Medicine 10/08/22 08/11/23 Rupert Stevens DO [address] [place] [address] [address] [place] [address] PCP - General Internal Medicine 08/12/23 01/17/24 Maria Fernanda Wilde MD [address] [facility] [address] [place] [address] PCP - General Family Medicine 01/18/24 05/20/24 Maria Fernanda Wilde MD [address] [address] PCP - General Family Medicine 05/21/24 Rach Hayes MD [facility], [address] [address] Consulting Physician Pain Management 05/05/21 Neeta Rodriguez NP [address] [place] [address] [address] [place] [address] Referring Physician Orthopedic Surgery 05/22/21 Guru Florez MD PhD [address] [place] [address] [address] [place] [address] Referring Physician Cardiology 08/19/22 Yury Sheridan MD [address] [place] [address] [address] [place] [address] Consulting Physician Orthopedic Surgery 09/30/22 Albaro Hickman PA [address] [address] Physician Osteopathic Medicine Teacher Physician Osteopathic Medicine Teacher 10/08/22 Tello Phipps MD [address] [place] [address] [address] [place] [address] Referring Physician Orthopedic Surgery 04/14/23 documented as of this encounter
--- OUTSIDE RECORDS SUMMARY | 2024-05-30 15:24 | XMS_ITS | Encounter Summary ---
Author Organization [facility] Address [address] [place] [address] Phone Care Team Providers Care Grain Commodity Manager Name Role Phone Asa Farias MD Primary Care Provider [phone] Albaro Hickman Primary Care Provider Rach Hayes MD Unavailable Neeta Rodriguez NP Unavailable +[phone] Guru Florez MD PhD Unavailable +[phone] Yury Sheridan MD Unavailable + [phone] Crow Bernardo MD Primary Care Provider + [phone] Albaro Hickman Unavailable +[phone] Tello Phipps MD Unavailable +[phone] Rupert Stevens DO Primary Care Provider +[phone] Maria Fernanda Wilde MD Primary Care Provider + [phone] Maria Fernanda Wilde MD Primary Care Provider Encounter Details Date Type Department Care Team (Late st Contact Info) Description 12/27/2013 Orders Only [facility] Provider, MD Luis [facility] [place] [address] Social History Tobacco Use Types Packs/Day Years Used Date Smoking Tobacco: Never Assessed Comments Unknown Sex and Gender Information Value Date Recorded Sex Assigned at Not on file 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 us Historical Provider [facility] Final Result documented in this encounter Visit Diagnoses Not on filedocumented in this encounter Care Teams Grain Commodity Manager Relationship Specialty Start Date End Date Asa Farias MD PCP - General 07/20/16 05/09/18 Albaro Hickman PA [address] [address] PCP - General Physician Guide Travel 05/10/18 10/07/22 Crow Bernardo MD [address] [address] PCP - General Internal Medicine 10/08/22 08/11/23 Rupert Stevens DO [address] [place] [address] [address] [place] [address] PCP - General Internal Medicine 08/12/23 01/17/24 Maria Fernanda Wilde MD [address] [facility] [address] [place] [address] PCP - General Family Medicine 01/18/24 05/20/24 Maria Fernanda Wilde MD [address] [address] PCP - General Family Medicine 05/21/24 Rach Hayes MD [facility], [address] [address] Consulting Physician Pain Management 05/05/21 Neeta Rodriguez NP [address] [place] [address] [address] [place] [address] Referring Physician Orthopedic Surgery 05/22/21 Guru Florez MD PhD [address] [place] [address] [address] [place] [address] Referring Physician Cardiology 08/19/22 Yury Sheridan MD [address] [place] [address] [address] [place] [address] Consulting Physician Orthopedic Surgery 09/30/22 Albaro Hickman PA [address] [address] Physician Guide Travel Physician Guide Travel 10/08/22 Tello Phipps MD [address] [place] [address] [address] [place] [address] Referring Physician Orthopedic Surgery 04/14/23 documented as of this encounter
--- OUTSIDE RECORDS SUMMARY | 2024-05-30 15:24 | XMS_ITS | Encounter Summary ---
Author Organization [facility] Address [address] [place] [address] Phone Care Team Providers Care Padder Name Role Phone Asa Farias MD Primary Care Provider [phone] Albaro Hickman Primary Care Provider Rcah Hayes MD Unavailable Neeta Rodriguez NP Unavailable [phone] Guru Florez MD PhD Unavailable [phone] Yury Sheridan MD Unavailable + [phone] Crow Bernardo MD Primary Care Provider + [phone] Albaro Hickman Unavailable +[phone] Tello Phipps MD Unavailable +[phone] Rupert Stevens DO Primary Care Provider +[phone] Maria Fernanda Wilde MD Primary Care Provider + [phone] Maria Fernanda Wilde MD Primary Care Provider Encounter Details Date Type Department Care Team (Late st Contact Info) Description 04/01/2014 Orders Only [facility] Provider, MD Luis [place] [address] Social History Tobacco Use Types Packs/Day Years Used Date Smoking Tobacco: Never Assessed Comments Unknown Sex and Gender Information Value Date Recorded Sex Assigned at Not on file Legal Sex Female 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 us Historical Provider [facility] Final Result documented in this encounter Visit Diagnoses Not on filedocumented in this encounter Care Teams Padder Relationship Specialty Start Date End Date Asa Farias MD PCP - General 07/20/16 05/09/18 Albaro Hickman PA [address] [address] PCP - General Physician Research Hydrologist 05/10/18 10/07/22 Crow Bernardo MD [address] [address] PCP - General Internal Medicine 10/08/22 08/11/23 Rupert Stevens DO [address] [place] [address] [address] [place] [address] PCP - General Internal Medicine 08/12/23 01/17/24 Maria Fernanda Wilde MD [address] [facility] [address] [place] [address] PCP - General Family Medicine 01/18/24 05/20/24 Maria Fernanda Wilde MD [address] [address] PCP - General Family Medicine 05/21/24 Rach Hayes MD [facility], [address] [address] Consulting Physician Pain Management 05/05/21 Neeta Rodriguez NP [address] [place] [address] [address] [place] [address] Referring Physician Orthopedic Surgery 05/22/21 Guru Florez MD PhD [address] [place] [address] [address] [place] [address] Referring Physician Cardiology 08/19/22 Yury Sheridan MD [address] [place] [address] [address] [place] [address] Consulting Physician Orthopedic Surgery 09/30/22 Albaro Hickman PA [address] [address] Physician Research Hydrologist Physician Research Hydrologist 10/08/22 Tello Phipps MD [address] [place] [address] [address] [place] [address] Referring Physician Orthopedic Surgery 04/14/23 documented as of this encounter
--- OUTSIDE RECORDS SUMMARY | 2024-05-30 15:24 | XMS_ITS | Encounter Summary ---
Author Organization [facility] Address [address] [place] [address] Phone Care Team Providers Care Plate Glass Polisher Name Role Phone Asa Farias MD Primary Care Provider [phone] Albaro Hickman Primary Care Provider Rach Hayes MD Unavailable Neeta Rodriguez NP Unavailable [phone] Guru Florez MD PhD Unavailable +[phone] Yury Sheridan MD Unavailable + [phone] Crow Bernardo MD Primary Care Provider + [phone] Albaro Hickman Unavailable +[phone] Tello Phipps MD Unavailable +[phone] Rupert Stevens DO Primary Care Provider [phone] Maria Fernanda Wilde MD Primary Care Provider + [phone] Maria Fernanda Wilde MD Primary Care Provider Encounter Details Date Type Department Care Team (Late st Contact Info) Description 11/29/2013 Orders Only [facility] Provider, MD Luis [facility] [place] [address] Social History Tobacco Use Types Packs/Day Years Used Date Smoking Tobacco: Never Assessed Comments Unknown Sex and Gender Information Value Date Recorded Sex Assigned at Not on file 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 us Historical Provider [facility] Final Result documented in this encounter Visit Diagnoses Not on filedocumented in this encounter Care Teams Plate Glass Polisher Relationship Specialty Start Date End Date Asa Farias MD PCP - General 07/20/16 05/09/18 Albaro Hickman PA [address] [address] PCP - General Physician Customer Solutions Architect 05/10/18 10/07/22 Crow Bernardo MD [address] [address] PCP - General Internal Medicine 10/08/22 08/11/23 Rupert Stevens DO [address] [place] [address] [address] [place] [address] PCP - General Internal Medicine 08/12/23 01/17/24 Maria Fernanda Wilde MD [address] [facility] [address] [place] [address] PCP - General Family Medicine 01/18/24 05/20/24 Maria Fernanda Wilde MD [address] [address] PCP - General Family Medicine 05/21/24 Rach Hayes MD [facility], [address] [address] Consulting Physician Pain Management 05/05/21 Neeta Rodriguez NP [address] [place] [address] [address] [place] [address] Referring Physician Orthopedic Surgery 05/22/21 Guru Florez MD PhD [address] [place] [address] [address] [place] [address] Referring Physician Cardiology 08/19/22 Yury Sheridan MD [address] [place] [address] [address] [place] [address] Consulting Physician Orthopedic Surgery 09/30/22 Albaro Hickman PA [address] [address] Physician Customer Solutions Architect Physician Customer Solutions Architect 10/08/22 Tello Phipps MD [address] [place] [address] [address] [place] [address] Referring Physician Orthopedic Surgery 04/14/23 documented as of this encounter
--- OUTSIDE RECORDS SUMMARY | 2024-05-30 15:24 | XMS_ITS | Encounter Summary ---
Author Organization [facility] Address [address] [place] [address] Phone Care Team Providers Care Financial Services Internship Name Role Phone Asa Farias MD Primary Care Provider [phone] Albaro Hickman Primary Care Provider Rach Hayes MD Unavailable Neeta Rodriguez NP Unavailable +[phone] Guru Florez MD PhD Unavailable +[phone] Yury Sheridan MD Unavailable + [phone] Crow Bernardo MD Primary Care Provider + [phone] Albaro Hickman Unavailable +[phone] Tello Phipps MD Unavailable +[phone] Rupert Stevens DO Primary Care Provider [phone] Maria Fernanda Wilde MD Primary Care Provider + [phone] Maria Fernanda Wilde MD Primary Care Provider Encounter Details Date Type Department Care Team (Late st Contact Info) Description 07/25/2013 Orders Only [facility]INCON[facility] Provider, MD Luis [facility] [place] [address] Social History Tobacco Use Types Packs/Day Years Used Date Smoking Tobacco: Never Assessed Comments Unknown Sex and Gender Information Value Date Recorded Sex Assigned at Not on file 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 us Historical Provider [facility]EL Final Result documented in this encounter Visit Diagnoses Not on filedocumented in this encounter Care Teams Financial Services Internship Relationship Specialty Start Date End Date Asa Farias MD PCP - General 07/20/16 05/09/18 Albaro Hickman PA [address] [address] PCP - General Physician Hebrew Cantor 05/10/18 10/07/22 Crow Bernardo MD [address] [address] PCP - General Internal Medicine 10/08/22 08/11/23 Rupert Stevens DO [address] [place] [address] [address] [place] [address] PCP - General Internal Medicine 08/12/23 01/17/24 Maria Fernanda Wilde MD [address] [facility] [address] [place] [address] PCP - General Family Medicine 01/18/24 05/20/24 Maria Fernanda Wilde MD [address] [address] PCP - General Family Medicine 05/21/24 Rach Hayes MD [facility], [address] [address] Consulting Physician Pain Management 05/05/21 Neeta Rodriguez NP [address] [place] [address] [address] [place] [address] Referring Physician Orthopedic Surgery 05/22/21 Guru Floerz MD PhD [address] [place] [address] [address] [place] [address] Referring Physician Cardiology 08/19/22 Yury Sheridan MD [address] [place] [address] [address] [place] [address] Consulting Physician Orthopedic Surgery 09/30/22 Albaro Hickman PA [address] [address] Physician Hebrew Cantor Physician Hebrew Cantor 10/08/22 Tello Phipps MD [address] [place] [address] [address] [place] [address] Referring Physician Orthopedic Surgery 04/14/23 documented as of this encounter
--- OUTSIDE RECORDS SUMMARY | 2024-05-30 15:24 | XMS_ITS | Encounter Summary ---
Author Organization [facility] Address [address] [place] [address] Phone Care Team Providers Care Va Underwriter Name Role Phone Asa Farias MD Primary Care Provider [phone] Ablaro Hickman Primary Care Provider Rach Hayes MD Unavailable Neeta Rodriguez NP Unavailable +[phone] Guru Florez MD PhD Unavailable +[phone] Yury Sheridan MD Unavailable + [phone] Crow Bernardo MD Primary Care Provider + [phone] Albaro Hickman Unavailable +[phone] Tello Phipps MD Unavailable +[phone] Rupert Stevens DO Primary Care Provider [phone] Maria Fernanda Wilde MD Primary Care Provider + [phone] Maria Fernanda Wilde MD Primary Care Provider Encounter Details Date Type Department Care Team (Late st Contact Info) Description 11/03/2014 Orders Only [facility] Provider, MD [place] [address] Social History Tobacco Use Types Packs/Day Years Used Date Smoking Tobacco: Never Assessed Comments Unknown Sex and Gender Information Value Date Recorded Sex Assigned at Not on file Legal Sex Female 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 us Historical Provider CV CARDIAC SERVICES CONNOR MANUEL Final Result documented in this encounter Visit Diagnoses Not on filedocumented in this encounter Care Teams Va Underwriter Relationship Specialty Start Date End Date Asa Farias MD PCP - General 07/20/16 05/09/18 Albaro Hickman PA [address] [address] PCP - General Physician Electrical Technology Instructor 05/10/18 10/07/22 Crow Bernardo MD [address] [address] PCP - General Internal Medicine 10/08/22 08/11/23 Rupert Stevens DO [address] [place] [address] [address] [place] [address] PCP - General Internal Medicine 08/12/23 01/17/24 Maria Fernanda Wilde MD [address] [facility] [address] [place] [address] PCP - General Family Medicine 01/18/24 05/20/24 Maria Fernanda Wilde MD [address] [address] PCP - General Family Medicine 05/21/24 Rach Hayes MD [facility], [address] [address] Consulting Physician Pain Management 05/05/21 Neeta Rodriguez NP [address] [place] [address] [address] [place] [address] Referring Physician Orthopedic Surgery 05/22/21 Guru Florez MD PhD [address] [place] [address] [address] [place] [address] Referring Physician Cardiology 08/19/22 Yury Sheridan MD [address] [place] [address] [address] [place] [address] Consulting Physician Orthopedic Surgery 09/30/22 Albaro Hickman PA [address] [address] Physician Electrical Technology Instructor Physician Electrical Technology Instructor 10/08/22 Tello Phipps MD [address] [place] [address] [address] [place] [address] Referring Physician Orthopedic Surgery 04/14/23 documented as of this encounter
--- OUTSIDE RECORDS SUMMARY | 2024-05-30 15:24 | XMS_ITS | Encounter Summary ---
Author Organization [facility] Address [address] [place] [address] Phone Care Team Providers Care Project Program Manager Name Role Phone Asa Farias MD Primary Care Provider [phone] Albaro Hickman Primary Care Provider Rach Hayes MD Unavailable Neeta Rodriguez NP Unavailable +[phone] Guru Florez MD PhD Unavailable [phone] Yury Sheridan MD Unavailable + [phone] Crow Bernardo MD Primary Care Provider + [phone] Albaro Hickman Unavailable +[phone] Tello Phipps MD Unavailable +[phone] Rupert Setvens DO Primary Care Provider +[phone] Maria Fernanda Wilde MD Primary Care Provider + [phone] Maria Fernanda Wilde MD Primary Care Provider Encounter Details Date Type Department Care Team (Late st Contact Info) Description 07/28/2015 Orders Only [facility] Provider, MD Luis [facility] [place] [address] Social History Tobacco Use Types Packs/Day Years Used Date Smoking Tobacco: Never Assessed Comments Unknown Sex and Gender Information Value Date Recorded Sex Assigned at Not on file 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 us Historical Provider CV CARDIAC SERVICES CONNOR MANUEL Final Result documented in this encounter Visit Diagnoses Not on filedocumented in this encounter Care Teams Project Program Manager Relationship Specialty Start Date End Date Asa Farias MD PCP - General 07/20/16 05/09/18 Albaro Hickman PA [address] [address] PCP - General Physician Hammer Runner 05/10/18 10/07/22 Crow Bernardo MD [address] [address] PCP - General Internal Medicine 10/08/22 08/11/23 Rupert Stevens DO [address] [place] [address] [address] [place] [address] PCP - General Internal Medicine 08/12/23 01/17/24 Maria Fernanda Wilde MD [address] [facility] [address] [place] [address] PCP - General Family Medicine 01/18/24 05/20/24 Maria Fernanda Wilde MD [address] [address] PCP - General Family Medicine 05/21/24 Rach Hayes MD [facility], [address] [address] Consulting Physician Pain Management 05/05/21 Neeta Rodriguez NP [address] [place] [address] [address] [place] [address] Referring Physician Orthopedic Surgery 05/22/21 Guru Florez MD PhD [address] [place] [address] [address] [place] [address] Referring Physician Cardiology 08/19/22 Yury Sheridan MD [address] [place] [address] [address] [place] [address] Consulting Physician Orthopedic Surgery 09/30/22 Albaro Hickman PA [address] [address] Physician Hammer Runner Physician Hammer Runner 10/08/22 Tello Phipps MD [address] [place] [address] [address] [place] [address] Referring Physician Orthopedic Surgery 04/14/23 documented as of this encounter
--- OUTSIDE RECORDS SUMMARY | 2024-05-30 15:24 | XMS_ITS | Encounter Summary ---
Author Organization [facility] Address [address] [place] [address] Phone Care Team Providers Care Snap Shearer Name Role Phone Asa Farias MD Primary Care Provider [phone] Albaro Hickman Primary Care Provider Rach Hayes MD Unavailable Neeta Rodriguez NP Unavailable [phone] Guru Florez MD PhD Unavailable [phone] Yury Sheridan MD Unavailable + [phone] Crow Bernardo MD Primary Care Provider + [phone] Albaro Hickman Unavailable +[phone] Tello Phipps MD Unavailable +[phone] Rupert Stevens DO Primary Care Provider [phone] Maria Fernanda Wilde MD Primary Care Provider + [phone] Maria Fernanda Wilde MD Primary Care Provider Encounter Details Date Type Department Care Team (Late st Contact Info) Description 11/14/2014 Orders Only [facility] Provider, MD Luis [facility] [place] [address] Social History Tobacco Use Types Packs/Day Years Used Date Smoking Tobacco: Never Assessed Comments Unknown Sex and Gender Information Value Date Recorded Sex Assigned at Not on file Legal Sex Female 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 Historical Provider CV CARDIAC SERVICES PROCE DURES Final Result * CARDIOLOGY REPORT (11/14/2014) Anatomical Region Laterality Modality Other Narrative 11/14/2014 Ordered by an unspecified provider. us Historical Provider CV CARDIAC SERVICES PROCE DURES Final Result documented in this encounter Visit Diagnoses Not on filedocumented in this encounter Care Teams Snap Shearer Relationship Specialty Start Date End Date Asa Farias MD PCP - General 07/20/16 05/09/18 Albaro Hickman PA [address] [place] [address] PCP - General Physician Senior Advisory 05/10/18 10/07/22 Crow Bernardo MD [address] [address] PCP - General Internal Medicine 10/08/22 08/11/23 Rupert Stevens DO [address] [address] PCP - General Internal Medicine 08/12/23 01/17/24 Maria Fernanda Wilde MD [address] [facility] [address] [place] [address] PCP - General Family Medicine 01/18/24 05/20/24 Maria Fernanda Wilde MD [address] [address] PCP - General Family Medicine 05/21/24 Rach Hayes MD [address] [place] [address] [facility] [address] Consulting Physician Pain Management 05/05/21 Neeta Rodriguez NP [address] [place] [address] [address] Referring Physician Orthopedic Surgery 05/22/21 Guru Florez MD PhD [address] [place] [address] [address] Referring Physician Cardiology 08/19/22 Yury Sheridan MD [address] [place] [address] [address] Consulting Physician Orthopedic Surgery 09/30/22 Albaro Hickman PA [address] [address] Physician Senior Advisory Physician Senior Advisory 10/08/22 Tello Phipps MD [address] [place] [address] [address] Referring Physician Orthopedic Surgery 04/14/23 documented as of this encounter
--- OUTSIDE RECORDS SUMMARY | 2024-05-30 15:24 | XMS_ITS | Encounter Summary ---
Author Organization [facility] Address [address] [place] [address] Phone Care Team Providers Care Market Research Specialist Name Role Phone Asa Farias MD Primary Care Provider [phone] Albaro Hickman Primary Care Provider Rach Hayes MD Unavailable Neeta Rodriguez NP Unavailable [phone] Guru Florez MD PhD Unavailable [phone] Yury Sheridan MD Unavailable + [phone] Crow Bernardo MD Primary Care Provider + [phone] Albaro Hickman Unavailable +[phone] Tello Phipps MD Unavailable +[phone] Rupert Stevens DO Primary Care Provider [phone] Maria Fernanda Wilde MD Primary Care Provider + [phone] Maria Fernanda Wilde MD Primary Care Provider Encounter Details Date Type Department Care Team (Late st Contact Info) Description 10/01/2013 Orders Only [facility] Provider, MD Luis [facility] [place] [address] Social History Tobacco Use Types Packs/Day Years Used Date Smoking Tobacco: Never Assessed Comments Unknown Sex and Gender Information Value Date Recorded Sex Assigned at Not on file Legal Sex Female 4:37 AM KETTLE GIRL Gender Identity Female 07/15/2022 2:23 PM CDT Sexual Orientation Choose not to disclose 2023 12:05 PM CDT documented as of this encounter Plan of Treatment Not on file documented as of this encounter Procedures Procedure Name Priority Date/Time Associated Diagnosis Comments CARDIOLOGY REPORT 10/01/2013 documented in this encounter Results * CARDIOLOGY REPORT (10/01/2013) Anatomical Region Laterality Modality Other Narrative 10/01/2013 Ordered by an unspecified provider. us Historical Provider CV CARDIAC SERVICES CONNOR MANUEL Final Result documented in this encounter Visit Diagnoses Not on filedocumented in this encounter Care Teams Market Research Specialist Relationship Specialty Start Date End Date Asa Farias MD PCP - General 07/20/16 05/09/18 Albaro Hickman PA [address] [address] PCP - General Physician Care Aid 05/10/18 10/07/22 Crow Bernardo MD [address] [address] PCP - General Internal Medicine 10/08/22 08/11/23 Rupert Stevens DO [address] [place] [address] [address] [place] [address] PCP - General Internal Medicine 08/12/23 01/17/24 Maria Fernanda Wilde MD [address] [facility] [address] [place] [address] PCP - General Family Medicine 01/18/24 05/20/24 Maria Fernanda Wilde MD [address] [address] PCP - General Family Medicine 05/21/24 Rach Hayes MD [facility], [address] [address] Consulting Physician Pain Management 05/05/21 Neeta Rodriguez NP [address] [place] [address] [address] [place] [address] Referring Physician Orthopedic Surgery 05/22/21 Guru Florez MD PhD [address] [place] [address] [address] [place] [address] Referring Physician Cardiology 08/19/22 Yury Sheridan MD [address] [place] [address] [address] [place] [address] Consulting Physician Orthopedic Surgery 09/30/22 Albaro Hickman PA [address] [address] Physician Care Aid Physician Care Aid 10/08/22 Tello Phipps MD [address] [place] [address] [address] [place] [address] Referring Physician Orthopedic Surgery 04/14/23 documented as of this encounter
--- OUTSIDE RECORDS SUMMARY | 2024-05-30 15:25 | XMS_ITS | Encounter Summary ---
Author Organization [facility] Address [address] [place] [address] Care Team Providers Care Pipe Puller Name Role Phone Rach Hayes MD Unavailable Neeta Rodriguez NP Unavailable [phone] Guru Florez MD PhD Unavailable [phone] Yury Sheridan MD Unavailable + [phone] Albaro Hickman Unavailable +[phone] Tello Phipps MD Unavailable +[phone] Rupert Stevens DO Primary Care Provider +[phone] Maria Fernanda Wilde MD Primary Care Provider + [phone] Maria Fernanda Wilde MD Primary Care Provider Encounter Details Date Type Department Care Team (Late st Contact Info) Description 08/16/2023 Anticoagulation - Ot her Visit (DOAC) [facility] Pain Mgmt [address] [place] [address] Rach Hayes MD [address] [place] [address] PAIN CENTER, [address] [address] Social History Tobacco Use Types Packs/Day Years Used Date Smoking Tobacco: Never Passive Smoke Exposure: Never Smokeless Tobacco: Never Alcohol Use Standard Drinks/Week Comments Yes 0 (1 standard drink = 0.6 oz pur e alcohol) rare AUDIT-C Answer Date Recorded Q1: How often do you have a drink containing alc ohol? Monthly or less 07/27/2023 Q2: How many drinks containi ng alcohol do you have on a typical day when you are drinking? 1 or 2 07/27/2023 Q3: How often do you have si x or more drinks on one occasion? Never 07/27/2023 Personal Safety Answer Date Recorded Have you ever been in or are you currently in a harmful physical or emotional relationship or is someone making you feel afraid or unsafe? 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 Gender Identity Female 07/15/2022 2:23 PM CDT Sexual Orientation Choose not to disclose 2023 12:05 PM CDT Occupation Industry Job Start Date Job End Date retired Not on file Not on file Not on file documented as of this encounter Plan of Treatment Not on file documented as of this encounter Visit Diagnoses Not on filedocumented in this encounter Care Teams Pipe Puller Relationship Specialty Start Date End Date Rupert Stevens DO [facility]0 [facility] [address] [place] [address] PCP - General Internal Medicine 08/12/23 01/17/24 Maria Fernanda Wilde MD [address] [facility] [address] [place] [address] PCP - General Family Medicine 01/18/24 05/20/24 Maria Fernanda Wilde MD 7342 [facility] [address] [place] [address] PCP - General Family Medicine 05/21/24 Rach Hayes MD [facility]0 [facility] [address] [place] [address] Consulting Physician Pain Management 05/05/21 Neeta Rodriguez RIPRAP MAN [address] [facility] [address] [place] [address] Referring Physician Orthopedic Surgery 05/22/21 Guru Florez MD PhD [address] [place] [address] [address] [place] [address] Referring Physician Cardiology 08/19/22 Yury Sheridan MD [facility] [address] [place] [address] Consulting Physician Orthopedic Surgery 09/30/22 Albaro Hickman PA [address] [place] [address] Physician Armament Repairer Physician Armament Repairer 10/08/22 Tello Phipps MD [facility]0 [facility] [address] [place] [address] Referring Physician Orthopedic Surgery 04/14/23 documented as of this encounter
--- OUTSIDE RECORDS SUMMARY | 2024-05-30 15:25 | XMS_ITS | Encounter Summary ---
Author Organization [facility] Address [address] [place] [address] Phone Care Team Providers Care Belly Roller Name Role Phone Rach Hayes MD Unavailable Neeta Rodriguez NP Unavailable [phone] Guru Florez MD PhD Unavailable [phone] Yury Sheridan MD Unavailable [phone] Albaro Hickman Unavailable [phone] Tello Phipps MD Unavailable +[phone] Maria Fernanda Wilde MD Primary Care Provider Encounter Details Date Type Department Care Team (Late st Contact Info) Description 05/21/2024 Results Follow-Up [facility] Cardiology [address] [facility] [address] [place] [address] Marina Reddy, MACARIO [address] [facility] [address] [place], [place] [id number] Social History Tobacco Use Types Packs/Day Years [...] on file 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 Gender Identity Female 07/15/2022 2:23 PM CDT Sexual Orientation Choose not to disclose 2023 12:05 PM CDT Occupation Industry Job Start Date Job End Date retired Not on file Not on file Not on file documented as of this encounter Plan of Treatment Not on file documented as of this encounter Visit Diagnoses Not on filedocumented in this encounter Care Teams Belly Roller Relationship Specialty Start Date End Date Maria Fernanda Wilde MD [address] [place] [address] PCP - General Family Medicine 05/21/24 Rach Hayes MD [address] [place] [address] [facility] [address] Consulting Physician Pain Management 05/05/21 Neeta Rodriguez NP [address] [place] [address] [address] Referring Physician Orthopedic Surgery 05/22/21 Guru Florez MD PhD [address] [place] [address] [address] Referring Physician Cardiology 08/19/22 Yury Sheridan MD [address] [place] [address] [address] Consulting Physician Orthopedic Surgery 09/30/22 Albaro Hickman PA [address] [address] Physician Steamboat Captain Physician Steamboat Captain 10/08/22 Tello Phipps MD [address] [address] Referring Physician Orthopedic Surgery 04/14/23 documented as of this encounter
--- OUTSIDE RECORDS SUMMARY | 2024-05-30 15:25 | XMS_ITS | Continuity of Care Document ---
Author Organization [facility] Address [address] [place] [address] [place] [address] Phone Care Team Providers Care Aerosol Line Operator Name Role Phone Licona OD, Jose Unavailable Unavailable Procedures Procedure Date CL Replacement - [employer] Disp W/BW Soft Sales Tax Office/outpatient Visit, Est Eye Exam & Treatment CL Replacement - [employer] Other 007 Tax - Medical Advance Directives Directive Yes / No Effective Date File Name No Information Encounters Encounter Description Practice Location Reason(s) For Visit Diagnoses Date Provider Providers Copied on Encounter [facility], [address] [place] [address] [address], [place], [place], [id number], tel:[phone] [facility] No Information 8-200 7 Licona OD Jose. [address] [facility] , [address], [place], [place], [facility], . tel:[phone] Office/outpat ient Visit, Est [facility], [address] [place] [address] [address], [place], [place], [id number], [place] tel:[phone] [facility] No Information 0-200 7 Doss Mary. [address] [facility] , [address], [place], [place], [facility], . tel:[phone] [facility], [address] [place] [address] [address], [place], [place], [id number], [place] tel:[phone] [facility] No Information 5-200 7 Licona OD Jose. [address] [facility] , [address], [place], [address], [place]. tel:[phone] Family History Family Member Type Diagnosis Age At Onset No Information Payers Payer name Insurance type Covered constitution party ID Authoriza tion(s) No Information Social History Type Description Quantity Date Captured Comments Sex Female Smoking Status No Information Chief Complaint And Reason For Visit No Information Reason For Referral Reason For Referral No Information History Of Present Illness Encounter Date Complaint History Of Prese nt Illness No Information Functional Status Date Functional Assessmen t No Information Instructions Date Instruction Additional Infor mation No Information Assessments Type Assessment Date No Information Patient Care Teams Name Effective Dates (start - stop) Status Members No Information
== END 2024-05-30 13:48 | disposition home or self-care (01) ==
LOC: CHSIMG 13:48
PROVIDERS: PCP Obstetrics & Gynecology Gynecology; Visit Provider Nurse Practitioner Women's Health
DX: Z78.0 Asymptomatic menopausal state (principal); M85.89 Other specified disorders of bone density and structure, multiple sites
CPT/HCPCS: 77080